=== PATIENT | female | born 1965 | race Caucasian/White ===

== ENCOUNTER 2017-03-06 08:34 | Inpatient (IN) ==
--- NOTE | 2017-03-05 15:51 | Discharge Summary ---
<Gemma De La Torre E - Last Filed: 03/05/17 15:49> Date of Encounter: 03/05/17 - Discharge Diagnosis (1) Arthritis of right knee Priority: Primary Status: Chronic (2) Insulin dependent diabetes mellitus Priority: Secondary Status: Chronic (3) Hemoglobin A1c less than 7.0% Priority: Secondary Status: Chronic (4) Bipolar disorder Priority: Secondary Status: Acute Qualifiers: Active/Remission status: remission status unspecified Qualified Code(s): F31.9 - Bipolar disorder, unspecified (5) Asthma Priority: Secondary Status: Chronic Qualifiers: Asthma severity: unspecified severity Asthma complication type: uncomplicated Qualified Code(s): J45.909 - Unspecified asthma, uncomplicated (6) GERD (gastroesophageal reflux disease) Priority: Secondary Status: Chronic Qualifiers: Esophagitis presence: esophagitis presence not specified Qualified Code(s) : K21.9 - Gastro-esophageal reflux disease without esophagitis (7) Migraine Priority: Secondary Status: Chronic Qualifiers: Migraine type: unspecified Status migrainosus presence: without status migrainosus Intractability: not intractable Qualified Code(s): G43.909 - Migraine, unspecified, not intractable, without status migrainosus (8) Hypothyroidism Priority: Secondary Status: Chronic Qualifiers: Hypothyroidism type: unspecified Qualified Code(s): E03.9 - Hypothyroidism , unspecified (9) BMI 40.0-44.9, adult Priority: Secondary Status: Chronic - Discharge Medications Prescriptions: cloZAPine [Clozaril] 150 mg PO DAILY #3 Gabapentin [Neurontin] 800 mg PO TID #15 Topiramate [Topamax] 200 mg PO BID #6 Trazodone HCl 100 mg PO HS #3 Home Medications: Atorvastatin Calcium [Lipitor] 20 mg PO HS 11/17/16 [History] Cyclobenzaprine [Flexeril] 10 mg PO TID PRN 11/17/16 [History] Cyprohepatdine [Periactin] 8 mg PO HS 11/17/16 [History] Esomeprazole Magnesium [Nexium] 40 mg PO DAILY 11/17/16 [History] Estradiol [Estrace] 1 mg PO DAILY 11/17/16 [History] Levothyroxine Sodium [Levoxyl] 150 mcg PO DAILY 11/17/16 [History] Melatonin [Melatin] 3 mg PO HS PRN 03/30/17 [History] Metformin HCl [Glucophage] 1,000 mg PO BID 11/17/16 [History] [place]-3/Dha/Epa/Fish Oil [Fish Oil 1,000 mg Softgel] 1 each PO DAILY 11/17/16 [ History] Aspirin Enteric Coated [Aspirin EC] 325 mg PO DAILY #21 tablet. 03/05/17 [Rx] Benztropine Mesylate 1 mg PO HS 03/06/17 [History] Ibuprofen [Motrin] 800 mg PO Q8HR PRN 03/06/17 [History] Insulin Degludec [Tresiba Flextouch U-100] 20 unit SQ HS 03/06/17 [History] Liraglutide [Victoza 2-Jonatan] 1.8 mg SQ QAM 03/06/17 [History] Propranolol [Inderal] 20 mg PO TID 03/06/17 [History] hydrOXYzine HCl [Hydroxyzine HCl] 50 mg PO QID 03/06/17 [History] Gabapentin [Neurontin] 800 mg PO TID #15 03/07/17 [Rx] Topiramate [Topamax] 200 mg PO BID #6 03/07/17 [Rx] Trazodone HCl 100 mg PO HS #3 03/07/17 [Rx] cloZAPine [Clozaril] 150 mg PO DAILY #3 03/07/17 [Rx] Allergies/Adverse Reactions: Allergies cephalexin [From Keflex] Allergy (Verified 03/06/17 12:52) Difficulty Breathing morphine Allergy (Verified 03/06/17 09:24) Hives naproxen [From Naprosyn] Adverse Reaction (Verified 03/06/17 12:52) Gastrointestinal Upset Tetanus Vaccines and Toxoid [Tetanus Vaccines & Toxoid] Adverse Reaction ( Verified 03/06/17 12:52) Redness of Skin Primary care physician: Eron Shook - Patient Status Disposition: Transfer Inpatient Rehab Fac Condition: Good - Discharge Instructions Follow Up With: Aguilar Young MD [Partnered Physician] - 03/16/17 2:00 pm Eron Shook, PAC [Primary Care Provider] - Additional Instructions: Discharge Instructions: Total Knee Replacement Please call [facility] ([phone]), your Primary Care Physician, or report to the Emergency Room if you have any of the following symptoms: Nausea, vomiting, fever greater that 101.5, swelling, chest pain, shortness of breath, increased pain/redness/drainage/odor for your incision site, numbness/ tingling, or any other concerning symptoms. ACTIVITY:Weight-bearing as tolerated. You may progress off support (crutches or walker) as tolerated. MEDICATIONS: Upon discharge resume your home medications. Take all the medications as prescribed. Take a stool softener if taking narcotic pain medications. Stool softeners are only effective if you drink enough fluids. Drink 6-8 glass of water or fluids a day, unless this is not allowed for another health problem. Despite using stool softeners, if you haven't had a bowel movement in 3 days, please switch to a gentle laxative. Gentle laxatives are sold over the counter. You should have a bowel movement within 24 hours, if not call the office. You will be discharged from the hospital with a prescription for pain medication. You are encouraged to decrease the use of narcotic pain medication as tolerated. Should you require a refill, please call the office. [facility] prescribes narcotic pain medication for only 4-6 weeks after surgery. If you require pain medication beyond this time period, you may be referred to your Primary Care Physician or to the Pain Clinic for further evaluation. Plan ahead for refills on pain medication as many narcotics either need to be picked up at the office or mailed. It is best to call 48-72 hours in advance of needing a prescription refill so you don't run out of medication. To help control the post-operative pain, you may take NSAIDs (Aleve,Advil, Motrin, Ibuprofen, Naprosyn) or Tylenol as prescribed on the bottle in addition to the pain medication. ANTICOAGULATION (blood thinners): Continue your Aspirin, Lovenox or Coumadin as prescribed to help prevent a blood clot in the leg or in the lungs. As long as your incision remains dry and you tolerate the NSAIDs (Aleve, Advil, Motrin, ibuprofen, naprosyn), it is OK to use the NSAIDS while you are taking your anticoagulation medication. Should your incision start to drain, stop the NSAID and contact our office. Common symptoms of blood clot in the legs include: localized pain, swelling, calf tenderness, redness or discoloration of the skin. Blood clot in the lung symptoms include: shortness of breath, rapid pulse, sweating, and chest pain that worsens with deep breathing, coughing up blood, lightheadedness, feelings of anxiety. If you experience any of these symptoms notify your physician immediately, go to the emergency room, or if having trouble breathing, call 911. WOUND CARE: Leave the dressing on for 7 to 10days. You may change the dressing if it becomes saturated greater than 50%. Do not get the dressing wet at anytime. Wash your hands with antibacterial soap, rinse and dry prior to any wound care. If you have apple the visiting nurse or rehab facility can remove the stapes 10-14 days after surgery and place steri-strips across the wound. Leave the steri-strips in place until they fall off on their won. You may let water from the shower run on top of the steri-strips. If you do not have a visiting nurse or rehab facility, you will need to return to the office at 10-14 days for the apple to be removed. If you have itching or redness around the dressing call the office. FOLLOW-UP: Please follow up with your surgeon in the orthopedic clinic in 4 weeks from the day of surgery. If you have apple that need to be removed, you will need to come back to the office in 10-14 days from the day of surgery. - Hospital Course Hospital course: Ms. Cooper is a 51 year old female - Time Spent with Patient Total time spent providing and/or coordinating discharge services: - VTE Documentation of Mechanical Device: Venous foot pump, device <Aguilar Young - Last Filed: 03/09/17 10:03> Date of Encounter: 03/09/17 Time of Encounter: 10:02 - Discharge Diagnosis (1) Arthritis of right knee Priority: Primary Status: Chronic (2) Insulin dependent diabetes mellitus Priority: Secondary Status: Chronic (3) Hemoglobin A1c less than 7.0% Priority: Secondary Status: Chronic (4) Bipolar disorder Priority: Secondary Status: Acute Qualifiers: Active/Remission status: remission status unspecified Qualified Code(s): F31.9 - Bipolar disorder, unspecified (5) Asthma Priority: Secondary Status: Chronic Qualifiers: Asthma severity: unspecified severity Asthma complication type: uncomplicated Qualified Code(s): J45.909 - Unspecified asthma, uncomplicated (6) GERD (gastroesophageal reflux disease) Priority: Secondary Status: Chronic Qualifiers: Esophagitis presence: esophagitis presence not specified Qualified Code(s) : K21.9 - Gastro-esophageal reflux disease without esophagitis (7) Migraine Priority: Secondary Status: Chronic Qualifiers: Migraine type: unspecified Status migrainosus presence: without status migrainosus Intractability: not intractable Qualified Code(s): G43.909 - Migraine, unspecified, not intractable, without status migrainosus (8) Hypothyroidism Priority: Secondary Status: Chronic Qualifiers: Hypothyroidism type: unspecified Qualified Code(s): E03.9 - Hypothyroidism , unspecified (9) BMI 40.0-44.9, adult Priority: Secondary Status: Chronic (10) Acute blood loss anemia Status: Acute (11) Vasovagal episode Priority: Primary Status: Acute Primary care physician: Eron Shook - Patient Status Functional capacity at discharge: uses cane/walker Overall status at discharge: patient is progressing back to baseline - Hospital Course Hospital course: Ms. Cooper is a 51 year old female Status post right total knee replacement. Patient with vasovagal event evening after surgery patient responded to conservative management. Patient with acute blood loss anemia received 2 units of blood postoperatively on postop day #2. Patient was seen early on postoperative day #2 doing well patient's ultimately developed delirium was given Narcan with good response. Patient is seen this morning doing well no complaints. Ready for discharge. Patient will be discharged to [facility] follow-up in 1 week. Patient was discharged on aspirin DVT prophylaxis - Time Spent with Patient Total time spent providing and/or coordinating discharge services:
[2017-03-06] MEDS ORDERED: CeFAZolin Pre 2,000 MG/100 ML 2,000 MG/100 ML BAG IVPB ONE (08:50)
[2017-03-06] MEDS ORDERED: Albuterol 2.5 MG/3 ML NEBULIZER IH ONE (08:50)
[2017-03-06] MEDS ORDERED: Lidocaine -MPF 1% 2 ML VIAL ID ONE (08:50)
[2017-03-06] MEDS ORDERED: Vancomycin 1,750 MG in D5% in Water 500 ML IVPB ONE (08:52)
[2017-03-06] MEDS: Ringers Solution, Lactated 1,000 ML IVC SCH ×2 (09:15→13:31)
--- NOTE | 2017-03-06 09:18 | History & Physical Report ---
Date of Encounter: 03/06/17 Time of Encounter: 09:18 24 Hour HP Update - Instructions Instructions: If the History and Physical is less than 30 days old and was completed prior to A.M. admission and or procedure and has NOT been updated on calendar day of procedure please complete this update prior to performing procedure. - Update Patient reports changes in Medical Condition: No Changes in examination, assessment, or condition: No Changes in Medication: No Preop tests/diagnostics Reviewed: Yes Surgery Remains Indicated: Yes Consent for Planned Operative Procedure(s) Verified: Yes - Pre-Operative Checklist Preoperative Checklist Indicated: No Prophylactic Antibiotic Ordered: Yes Is VTE Prophylaxis Indicated?: Yes
--- NOTE | 2017-03-06 09:23 | Anesthesia Evaluation PreOp ---
Date of Encounter: 03/06/17 Time of Encounter: 09:21 - Past History Planned Operation: Right Total Knee Arthroplasty Cardiac History: HTN, Hyperlipidemia Pulmonary History: Former smoker (quit 1.5 years ago, smoked for 15+ years), Asthma VEGETABLE CANNER History: Seizures (medication induced seizure) Other Medical History: Diabetes Type II, Thyroid, GERD, Other (obesity BMI=42.1 , bipolar) Anesthesia History: No Prior Anesthetic Complications, Past Anesthesia Alcohol Use: none Drug use: none Medications and Allergies Atorvastatin Calcium [Lipitor] 20 mg PO HS 11/17/16 [History] Benztropine Mesylate 2 mg PO BID 11/17/16 [History] Cyclobenzaprine [Flexeril] 10 mg PO TID 11/17/16 [History] Cyprohepatdine [Periactin] 8 mg PO HS 11/17/16 [History] Esomeprazole Magnesium [Nexium] 40 mg PO DAILY 11/17/16 [History] Estradiol [Estrace] 1 mg PO DAILY 11/17/16 [History] Gabapentin [Neurontin] 800 mg PO TID 11/17/16 [History] HYDROcodone/Acet 5/325 mg [[place] 5-325 mg] 1 tab PO Q6H PRN 11/17/16 [History] HydrOXYzine 10 mg PO BID 11/17/16 [History] Levothyroxine Sodium [Levoxyl] 150 mcg PO DAILY 11/17/16 [History] Melatonin [Melatin] 3 mg PO HS PRN 11/17/16 [History] Metformin HCl [Glucophage] 1,000 mg PO BID 11/17/16 [History] [place]-3/Dha/Epa/Fish Oil [Fish Oil 1,000 mg Softgel] 1 each PO DAILY 11/17/16 [ History] Propranolol HCl 40 mg PO BID 11/17/16 [History] Topiramate [Topamax] 200 mg PO BID 11/17/16 [History] cloZAPine [Clozaril] 100 mg PO DAILY 11/17/16 [History] Aspirin Enteric Coated [Aspirin EC] 325 mg PO DAILY #21 tablet. 03/05/17 [Rx] Ibuprofen [Motrin] 800 mg PO Q8HR PRN 03/06/17 [History] Insulin Degludec [Tresiba Flextouch U-100] 20 unit SQ HS 03/06/17 [History] Liraglutide [Victoza 2-Jonatan] 1.8 mg SQ QAM 03/06/17 [History] Trazodone HCl 100 mg PO HS 03/06/17 [History] Allergies cephalexin [From Keflex] Allergy (Verified 03/06/17 09:24) Swelling of Lip/Tongue/Throat morphine Allergy (Verified 03/06/17 09:24) Hives Tetanus Vaccines and Toxoid [Tetanus Vaccines & Toxoid] Allergy (Verified 09:24) Redness of Skin naproxen [From Naprosyn] Adverse Reaction (Verified 03/06/17 09:24) Gastrointestinal Upset - Meds/Allergy Pre-op Review Medications Reviewed: Yes Allergies Reviewed: Yes Beta Blockers on Current Med List: Yes If Beta Blockers taken, Date/Time (Last Dose taken): 03/06/2017 at 0645 Anesthesia Results - Labs Laboratory Tests 02/28/17 02/28/17 02/28/17 14:15 14:15 14:45 WBC 7.6 Hgb 12.2 Hct 38.9 Plt Count 228 PT 10.1 INR 0.9 APTT 30.8 Sodium Potassium BUN 12 Creatinine 0.84 02/28/17 14:45 WBC Hgb Hct Plt Count PT INR APTT Sodium 137 Potassium 4.5 BUN Creatinine - Imaging EKG: report reviewed (02/28/2017 SR) Anesthesia Exam O2 Sat Height 1.68 m Height 1.68 m Height 1.68 m Weight 118.388 kg Weight 118.388 kg Weight 118.388 kg O2 Sat by Pulse Oximetry 96 O2 Sat by Pulse Oximetry 96 Vital Signs Temp Pulse Resp BP Pulse Ox 97.9 F 83 18 137/90 96 03/06/17 08:54 03/06/17 08:54 03/06/17 08:54 03/06/17 08:54 03/06/17 08:54 Blood glucose: 152 Height: 5'6'' Weight: 261 lbs NPO (# of Hours): 8 Pain Scale: 4 (right knee) Pain Scale Used: Numeric (1 - 10) - HEENT Pupil (Motor): EOMI Mallampati: II Teeth: Poor dentition Oral Opening: Greater than 3 - VEGETABLE CANNER LOC: Oriented VEGETABLE CANNER Motor: Normal RUE, Normal LUE, Normal RLE, Normal LLE, Normal Face VEGETABLE CANNER Sensory: Normal: RUE, LUE, Face, Deficit: RLE (foot neuropathy), LLE (foot neuropathy) - Cardiac Rhythm: Regular Murmur: None - Pulmonary Breath Sounds: bilateral Clear Respiratory Effort: Symmetrical Anesthesia Assess/Plan ASA Score: 3 Modified Ignacia Scale for Level of Consciousness: Cooperative, oriented, and tranquil Anesthetic Plan: General, Regional Monitoring Plan: Standard Monitors Recovery Plan: PACU
[2017-03-06] MEDS ORDERED: Scopolamine Patch 1.5 MG PATCH.TD72 TD ONE (09:33)
[2017-03-06] MEDS ORDERED: Ondansetron 4 MG/2 ML VIAL IVP ONE (09:47)
[2017-03-06] MEDS ORDERED: *HR* Meperidine 25 MG/ML SYRINGE IVP PRN (09:47)
[2017-03-06] MEDS ORDERED: *HR* Propofol 200 MG/20 ML VIAL IVP ONE (09:49)
[2017-03-06] MEDS ORDERED: Lidocaine -MPF 2% 2 ML VIAL ONE ×2 (09:49→11:23)
[2017-03-06] MEDS ORDERED: *HR* FentaNYL (PF) 100 MCG/2 ML VIAL ONE ×2 (09:49→11:33)
[2017-03-06] MEDS ORDERED: *HR* Midazolam HCl 2 MG/2 ML VIAL ONE (09:49)
[2017-03-06] MEDS ORDERED: ROPIVACAINE HCL/PF 0.5% 30 ML VIAL ONE (10:29)
[2017-03-06] MEDS ORDERED: Bupivacaine/Clonidine Syringe 1 EACH SYRINGE ONE (10:30)
--- NOTE | 2017-03-06 10:57 | Anesthesia Procedures ---
Date of Encounter: 03/06/17 Time of Encounter: 10:45 Procedures: Anesthesia - Nerve Block Procedure Date: 03/06/17 Time: 10:45 Allergies/Adv Reactions: None Pre-op Diagnosis: Right knee arthritis Surgical Procedure: Right total knee Checklist: Correct Patient Identifier, Correct procedure, History checked Correct side: Right Blood Thinner: No Monitor Applied: EKG, BP, Pulse Oximetry Supplemental Oxygen via Nasal Cannula (L/min): 2 Sedation: Versed (mg): 2 Sedation: Fentanyl (mcg): 100 Indication: Post Op Analgesia Pre-op Neuro Deficits: No Block Type: Femoral, Other (IPACK) Catheter placed: No Sterile Technique: Yes Ultrasound used: Yes Anatomy identified: Yes Visual spread of Local: Yes Neuro Stimulation: Yes Nerve Stimulator Range: 0.2 - 0.4 mA Blood on Needle Aspiration: No Smooth Injection of Local: Yes Pain with Injection of Local: No Prep: Chlorhexadine Needle: 22 x 50 mm Stimuplex, 21 x 100 mm Stimuplex Local: 0.25% Bupivicaine w/Clonidine 20 mcg/cc (30ml), Ropivacaine (0.5%, 30ml) Number of Attempts: 1 Complications: None/effective block Vitals: Vital Signs/O2 Sat/Glucose, Most Recent Temp Pulse Resp BP Pulse Ox 97.9 F 84 16 118/59 96 03/06/17 08:54 03/06/17 10:53 03/06/17 10:53 03/06/17 10:53 03/06/17 10:53 Blood Glucose* 152
[2017-03-06] MEDS ORDERED: Dexamethasone 4 MG/ML VIAL ONE (11:23)
[2017-03-06] MEDS ORDERED: Ondansetron 4 MG/2 ML VIAL ONE (11:23)
--- NOTE | 2017-03-06 11:50 | Orthopedic Operative Note ---
Date of procedure: 03/06/17 Pre-op diagnosis: Right knee arthritis Post-op diagnosis: same Procedure: Procedure: Right Total knee replacement Estimated blood loss: 400 cc Hardware: Metal and polyethylene replacement. Arthrex Femur: 6 Tibia: 5 PS insert: 12 Patella: 34 Exam Under anesthesia: Full flexion and extension, valgus alignment. Procedural Notes: Grade 3 arthritic changes patellofemoral joint and lateral compartment. Operative procedure: The patient was brought to the operating room and placed on the operating room table. After general anesthesia was administered the operative knee was examined. Findings were noted in the exam under anesthesia. The operative extremity was prepped and draped in sterile surgical fashion. The patient received IV antibiotics prior to skin incision. A standard midline incision was made centered over the patella. The incision was made through the skin and subcutaneous tissue. A medial parapatellar tendon approach was performed. Care was taken to preserve tissue along the medial aspect of the patella. And to protect the patella tendon. The deep MCL was released off the medial tibia. The infra patella fat pad was excised. Knee was brought into flexion. The patient was noted to have grade 3 arthritic changes patellofemoral joint lateral compartment. The entry hole was made for the intramedullary femoral guide. The guide was seated in 6 degrees of valgus. Anterior cut was made followed by the distal cut. The ACL the PCL the medial and the lateral menisci were excised. The tibia was subluxed forward. The entry hole was made for the intramedullary tibial guide. Guide was seated to resect 2 mm off the more abnormal side. The knee was brought into flexion the distal femur was sized to a 6. The femoral guide was seated, the anterior cut was made followed by the posterior condylar cut, followed by the chamfer cuts. The finishing guide was seated the box cut was made and the lug holes were drilled. The tibia was sized to a 5, the tibial tray was seated and prepared with the large drill followed by the fin cutter. Trial reduction revealed full extension no varus valgus instability with the appropriate 12 PS Lita. The patella was everted and cut was made at the level of the insertion of the quadriceps and patella tendon. The patella was sized to 34 the guide was seated and the lug holes are drilled. Trial reduction revealed excellent patella tracking. All trial components were removed all bony surfaces were irrigated. The tibia was cemented first followed by the femur. The 12 PS Lita was seated and the knee was brought into full extension. The patella was cemented and held in place with the patellar holding clamp. After the cement had hardened, the knee sat for 2 minutes with a Betadine saline solution. The knee was then irrigated out with 2 L of pulse irrigation. The PA close the knee. The extensor mechanism was closed with #2 FiberWire suture and #2 PDS suture. The subcutaneous tissue was then irrigated and closed deep with #1 PDS suture superficially with 0 PDS suture and skin was closed with skin apple. The patient was then placed in a sterile dressing and a postoperative brace extubated and transferred to recovery room in stable condition. Anesthesia: JAIME Surgeon: Aguilar Young Agriculture Specialist: Nakia Devlin Condition: stable Disposition: PACU
[2017-03-06] MEDS ORDERED: *HR* HYDROmorphone 2 MG/ML SYRINGE ONE (12:09)
[2017-03-06] MEDS: *HR* HYDROmorphone (PF) 1 MG/ML SYRINGE IVP PRN ×4 (12:35→13:06)
[2017-03-06 12:37] LABS: Hematocrit 34.4 % (35.3-44.9); Hemoglobin 11.1 g/dL (11.5-15.4)
[2017-03-06] MEDS ORDERED: Acetaminophen IV 1,000 MG/100 ML INFUS..BTL IVPB ONE (12:56)
[2017-03-06] MEDS ORDERED: *HR* Labetalol 20 MG/4 ML SYRINGE IVP ONE ×2 (13:25→13:27)
--- NOTE | 2017-03-06 13:33 | Anesthesia Evaluation Post Op ---
Date of Encounter: 03/06/17 Time of Encounter: 13:31 - Vital Signs Vital Signs: Vital Signs/O2 Sat/Glucose, Most Recent Temp Pulse Resp BP Pulse Ox 97.1 F L 104 114 119/80 94 03/06/17 12:49 03/06/17 13:09 03/06/17 13:09 03/06/17 13:09 03/06/17 13:09 Blood Glucose* 232 - Lungs Lungs: Clear Ascult./Percussion - Airway Airway: Non-obstructed - Cardiovascular Regular Rate - Mental Status Mental Status: Alert & Oriented, Answers Appropriately - Pain Pain Scale: 5 (Patient resting with C/O slight aching pain) - Nausea Vomiting Nausea Vomiting: Not Present - Hydration Hydration: Tolerates oral liquids, Has not voided Notes: 03/06/17 13:35 AAOx3,VSS with no complaints - Discharge PostOp Status: Transfer Patient to floor
[2017-03-06] MEDS ORDERED: Melatonin 3 MG TABLET PO PRN (14:07)
[2017-03-06] MEDS ORDERED: Ondansetron 4 MG/2 ML VIAL IVP PRN (14:07)
[2017-03-06] MEDS ORDERED: Naloxone 0.4 MG/ML INJ IVP PRN (14:07)
[2017-03-06] MEDS ORDERED: MOM Conc 10 ML UD.LIQ PO PRN (14:07)
[2017-03-06] MEDS ORDERED: *HR* Dextrose 50 % in Water (Syg) 50 ML SYRINGE IVP PRN (14:07)
[2017-03-06] MEDS ORDERED: Temazepam 15 MG CAPSULE PO PRN (14:07)
[2017-03-06] MEDS ORDERED: Dextrose Gel 15 GM PO PRN ×2 (14:07)
[2017-03-06] MEDS ORDERED: Ringers Solution, Lactated 1,000 ML IVC SCH (14:07)
[2017-03-06] MEDS ORDERED: Sennosides 8.6 MG TABLET PO PRN (14:07)
[2017-03-06] MEDS ORDERED: D5% in Water 1,000 ML IVC PRN (14:07)
[2017-03-06] MEDS: Insulin LISPRO 300 UNITS/3 ML VIAL SQ SCH ×3 (15:33→21:31)
[2017-03-06] MEDS: Clindamycin 900 MG/50 ML 900 MG/50 ML IV.SOLN IVPB SCH ×2 (15:34→23:01)
[2017-03-06] MEDS: Gabapentin 400 MG CAPSULE PO SCH ×2 (15:34→21:30)
--- NOTE | 2017-03-06 17:05 | Event Note ---
Date of Encounter: 03/06/17 Time of Encounter: 17:03 Patient Rapid response at approx 1630 s/p Right TKR today, vasovagel response during PT. No trauma noted. Patient resting in bed comfortably during exam. Will repeat H/H stat and get Blood type, and cross. notified.
[2017-03-06 17:09] LABS: Hematocrit 34.6 % (35.3-44.9); Hemoglobin 11.1 g/dL (11.5-15.4)
[2017-03-06] MEDS ORDERED: *HR* Enoxaparin 30 MG/0.3 ML SYRINGE SQ SCH (18:00)
[2017-03-06] MEDS: *HR* OxyCODONE Immed Rel 5 MG TABLET PO PRN ×2 (18:10→22:33)
[2017-03-06] MEDS: *HR* Enoxaparin 30 MG/0.3 ML SYRINGE SQ SCH (18:11)
[2017-03-06] MEDS: Cyprohepatdine 4 MG TABLET PO SCH (21:30)
[2017-03-06] MEDS: *HR* Metformin 500 MG TABLET PO SCH (21:30)
[2017-03-06] MEDS: Topiramate 100 MG TABLET PO SCH (21:31)
[2017-03-06] MEDS: traZODone 50 MG TABLET PO SCH (21:31)
[2017-03-06] MEDS: Insulin Degludec [Tresiba Flextouch U-100] SQ SCH (21:36)
[2017-03-07] MEDS: *HR* HYDROmorphone (PF) 1 MG/ML SYRINGE IVP PRN ×3 (00:10→13:58)
[2017-03-07] MEDS: *HR* OxyCODONE Immed Rel 5 MG TABLET PO PRN ×4 (02:36→21:25)
[2017-03-07] MEDS: *HR* Enoxaparin 30 MG/0.3 ML SYRINGE SQ SCH ×2 (05:24→16:39)
[2017-03-07 05:46] LABS: Hematocrit 28.1 % (35.3-44.9)
[2017-03-07 05:50] LABS: BUN/Creatinine Ratio 15 (6-26); Blood Urea Nitrogen 13 mg/dL (7-20); Carbon Dioxide 23 mEq/L (19-29); Chloride 96 mEq/L (98-109); Glucose 167 mg/dL (70-99); Osmolality,Calculated 272 (280-300); Potassium 4.1 mEq/L (3.5-4.5); Sodium 129 mEq/L (136-145); eGFR For African Americans > 60 (> 60); eGFR For Non-African Americans > 60 (> 60)
[2017-03-07 05:54] LABS: Hemoglobin 9.1 g/dL (11.5-15.4)
--- NOTE | 2017-03-07 06:46 | Orthopedics Progress Note ---
Date of Encounter: 03/07/17 Time of Encounter: 06:45 - Assessment and Plan (1) Arthritis of right knee Current Visit: Yes Status: Chronic (2) Insulin dependent diabetes mellitus Current Visit: Yes Status: Chronic (3) Hemoglobin A1c less than 7.0% Current Visit: Yes Status: Chronic (4) Bipolar disorder Current Visit: Yes Status: Acute Qualifiers: Active/Remission status: remission status unspecified Qualified Code(s): F31.9 - Bipolar disorder, unspecified (5) Asthma Current Visit: Yes Status: Chronic Qualifiers: Asthma severity: unspecified severity Asthma complication type: uncomplicated Qualified Code(s): J45.909 - Unspecified asthma, uncomplicated (6) GERD (gastroesophageal reflux disease) Current Visit: Yes Status: Chronic Qualifiers: Esophagitis presence: esophagitis presence not specified Qualified Code(s) : K21.9 - Gastro-esophageal reflux disease without esophagitis (7) Migraine Current Visit: Yes Status: Chronic Qualifiers: Migraine type: unspecified Status migrainosus presence: without status migrainosus Intractability: not intractable Qualified Code(s): G43.909 - Migraine, unspecified, not intractable, without status migrainosus (8) Hypothyroidism Current Visit: Yes Status: Chronic Qualifiers: Hypothyroidism type: unspecified Qualified Code(s): E03.9 - Hypothyroidism , unspecified (9) BMI 40.0-44.9, adult Current Visit: Yes Status: Chronic Subjective Interval history: Patient was seen this morning doing well without complaints. Afebrile vital signs stable. Operative extremity: Neurovascularly intact Dressing clean dry and intact Calves nontender Assessment and plan: Continue with postoperative care Hemoglobin 9.1 patient was vasovagal episode overnight doing well this morning. Objective Vital signs: Vital Signs Temp Pulse Resp BP Pulse Ox 03/07/17 03:32 97.4 F L 98 17 114/76 96 03/07/17 01:05 98.3 F 100 17 123/81 96 03/07/17 00:14 97.7 F 101 16 122/76 96 03/06/17 21:13 97.6 F 114 17 123/75 96 03/06/17 16:18 97.8 F 112 16 106/69 96 03/06/17 15:25 98.7 F 106 16 108/66 96 03/06/17 14:40 97.6 F 16 16 108/68 94 03/06/17 14:09 98.7 F 97 18 99/64 03/06/17 13:39 97.6 F 93 16 108/67 96 03/06/17 13:29 90 16 111/77 98 03/06/17 13:19 97.1 F L 104 16 122/79 96 03/06/17 13:09 104 14 119/80 94 03/06/17 12:59 101 16 127/72 96 03/06/17 12:49 97.1 F L 104 14 116/78 94 03/06/17 12:39 106 16 120/77 95 03/06/17 12:29 105 16 115/82 95 03/06/17 12:19 97.0 F L 94 16 128/79 95 03/06/17 10:53 84 16 118/59 96 03/06/17 10:28 87 16 120/86 94 03/06/17 09:07 18 96 03/06/17 08:54 97.9 F 83 18 137/90 96 Intake and Output 03/06/17 03/06/17 03/07/17 15:59 23:59 07:59 Intake Total 1070 / 1070 470 / 470 1550 / 1550 Output Total 800 / 800 1000 / 1000 500 / 500 Balance 270 / 270 -530 / -530 1050 / 1050 Intake: IV Fluids 1070 / 1070 50 / 50 50 / 50 Lactated Ringers 1,000 ML 970 / 970 @ 25 mls/hr IVC .Q24H [facility] Rx#:[id number] Ofirmev 1,000 mg/100 ml 1 100 / 100 ,000 mg In 100 ml @ 400 mls/hr IVPB ONCE ONE Rx#: [id number] Cleocin Premix 900 MG/50 50 / 50 50 / 50 ML 900 mg In 50 ml @ 50 mls/hr IVPB Q8HR [facility] Rx#: [id number] Oral 0 / 0 420 / 420 1500 / 1500 Output: Urine 0 / 0 1000 / 1000 500 / 500 Estimated Blood Loss 800 / 800 Other: Weight 118.388 kg 123.6 kg Blood Glucose* 232 204 Patient Weight 03/07/17 23:59 Weight 123.6 kg - Labs CBC & BMP: 03/07/17 05:12 03/07/17 05:12 Labs: Abnormal lab results Hgb 9.1 g/dL (11.5-15.4) L D 03/07/17 05:12 Hct 28.1 % (35.3-44.9) L 03/07/17 05:12 Sodium 129 mEq/L (136-145) L 03/07/17 05:12 Chloride 96 mEq/L (98-109) L 03/07/17 05:12 Glucose 167 mg/dL (70-99) H 03/07/17 05:12 POC Glucose 204 (58-89) H 03/06/17 21:05 Calculated Osmolality 272 (280-300) L 03/07/17 05:12 - VTE Documentation of Mechanical Device: Venous foot pump, device Consult Discharge Plan - Plan Referrals: Eron Shook, PAC [Primary Care Provider] -
[2017-03-07] MEDS: Insulin LISPRO 300 UNITS/3 ML VIAL SQ SCH ×4 (07:38→21:30)
[2017-03-07] MEDS: Gabapentin 400 MG CAPSULE PO SCH ×3 (07:40→21:24)
[2017-03-07] MEDS: Topiramate 100 MG TABLET PO SCH ×2 (07:41→21:24)
[2017-03-07] MEDS: cloZAPine 100 MG TABLET PO SCH (07:41)
[2017-03-07] MEDS: *HR* Metformin 500 MG TABLET PO SCH ×2 (07:41→21:24)
[2017-03-07] MEDS: (Liraglutide [Victoza 2-Pak] 1.8 MG) SQ SCH (07:46)
[2017-03-07] MEDS ORDERED: (Omega-3/Dha/Epa/Fish Oil [Fish Oil 1,000 Mg Softgel] PO SCH (09:00)
--- NOTE | 2017-03-07 12:44 | Event Note ---
Date of Encounter: 03/07/17 Time of Encounter: 12:43 PCR - POD#1 - Right TKR Patient seen at bedside, doing well. Pain controlled. Doing well with PT All questions and concerns addressed. Patient educated on post-operative restrictions and care. D/C plan: ECF or Home health. Recheck H/H tomorrow. She has 2 units on hold if needed due to vasovagal episode 03/06/17
--- NOTE | 2017-03-07 12:44 | Physician Discharge Referral ---
ExtendedCare Referral Info Transfer To: [facility] Provider in Charge: Provider in Charge after Transfer: PCP Institutional Level of Care: Skilled - Diagnosis (1) Status post total knee replacement, right Priority: Primary Status: Acute (2) Arthritis of right knee Priority: Primary Status: Chronic (3) Bipolar disorder Priority: Secondary Status: Acute (4) Asthma Priority: Secondary Status: Chronic (5) GERD (gastroesophageal reflux disease) Priority: Secondary Status: Chronic (6) Migraine Priority: Secondary Status: Chronic (7) Hypothyroidism Priority: Secondary Status: Chronic (8) BMI 40.0-44.9, adult Priority: Secondary Status: Chronic (9) Vasovagal episode Priority: Secondary Status: Acute Expected Duration of Placement: 30 days Prognosis: Good Aware of Diagnosis: Patient Aware of Prognosis: Patient - Transfer Medications Prescriptions: cloZAPine [Clozaril] 150 mg PO DAILY #3 Gabapentin [Neurontin] 800 mg PO TID #15 Topiramate [Topamax] 200 mg PO BID #6 Trazodone HCl 100 mg PO HS #3 Home Medications: Atorvastatin Calcium [Lipitor] 20 mg PO HS 11/17/16 [History] Cyclobenzaprine [Flexeril] 10 mg PO TID PRN 11/17/16 [History] Cyprohepatdine [Periactin] 8 mg PO HS 11/17/16 [History] Esomeprazole Magnesium [Nexium] 40 mg PO DAILY 11/17/16 [History] Estradiol [Estrace] 1 mg PO DAILY 11/17/16 [History] Levothyroxine Sodium [Levoxyl] 150 mcg PO DAILY 11/17/16 [History] Melatonin [Melatin] 3 mg PO HS PRN 11/17/16 [History] Metformin HCl [Glucophage] 1,000 mg PO BID 11/17/16 [History] [place]-3/Dha/Epa/Fish Oil [Fish Oil 1,000 mg Softgel] 1 each PO DAILY 11/17/16 [ History] Aspirin Enteric Coated [Aspirin EC] 325 mg PO DAILY #21 tablet. 03/05/17 [Rx] Benztropine Mesylate 1 mg PO HS 03/06/17 [History] Ibuprofen [Motrin] 800 mg PO Q8HR PRN 03/06/17 [History] Insulin Degludec [Tresiba Flextouch U-100] 20 unit SQ HS 03/06/17 [History] Liraglutide [Victoza 2-Jonatan] 1.8 mg SQ QAM 03/06/17 [History] Propranolol [Inderal] 20 mg PO TID 03/06/17 [History] hydrOXYzine HCl [Hydroxyzine HCl] 50 mg PO QID 03/06/17 [History] Gabapentin [Neurontin] 800 mg PO TID #15 03/07/17 [Rx] Topiramate [Topamax] 200 mg PO BID #6 03/07/17 [Rx] Trazodone HCl 100 mg PO HS #3 03/07/17 [Rx] cloZAPine [Clozaril] 150 mg PO DAILY #3 03/07/17 [Rx] Allergies/Adverse Reactions: Allergies cephalexin [From Keflex] Allergy (Verified 03/06/17 12:52) Difficulty Breathing morphine Allergy (Verified 03/06/17 09:24) Hives naproxen [From Naprosyn] Adverse Reaction (Verified 03/06/17 12:52) Gastrointestinal Upset Tetanus Vaccines and Toxoid [Tetanus Vaccines & Toxoid] Adverse Reaction ( Verified 03/06/17 12:52) Redness of Skin - Respiratory Orders Smoking Cessation: Smoking cessation has been advised. For more information, call the [place] Tobacco Quit Line at 0-975-ZDVU-NOW. - Ancillary Orders May use pressure relief devices daily prn, May go on DIONNA w/family/respon libertarian w /meds at nurse discretion PRN - Mobility Orders Chair, Ambulate - Rehabiliation Orders Rehab Potential: Good Rehab Orders: ROM Exercises, Evaluation for Physical Therapy, Evaluation for Occupational Therapy Other: Opsite dressing, leave intact until first post-operative visit. If dressing becomes >50% saturated, contact office, remove dressing and place appropriate dressing in its place. Do not allow for dressing to get wet. [place] in place, plan to remove at post-operative day #14-16. Total Joint Precautions x 6 weeks Apply cold therapy wrap 3-6x/day for 20 minutes at a time. Encourage ambulation throughout the day Use Incentive spirometer 10x/hour. Elevate affected extremity above heart as tolerated. Brace: Wear knee immobilizer at night x 2 weeks. - Treatments Skin tear care topically daily PRN per policy - Diet Orders Regular CERTIFICATION: I certify that the transfer of the above named patient to an Extended Care Facility is necessary for the continuing treatment of the diagnosis listed. The above information is true and accurate reflection of patient's current condition. Confidential - Redisclosure prohibited without a patient's written consent.
--- NOTE | 2017-03-07 12:45 | Physician Discharge Referral ---
Home Health/Hosp Referral Info Transfer to: Home Health Attending Provider: Provider in Charge Post Discharge: PCP - Diagnosis (1) Status post total knee replacement, right Priority: Primary Status: Acute (2) Arthritis of right knee Priority: Primary Status: Chronic (3) Bipolar disorder Priority: Secondary Status: Acute (4) Vasovagal episode Priority: Secondary Status: Acute (5) Asthma Priority: Secondary Status: Chronic (6) BMI 40.0-44.9, adult Priority: Secondary Status: Chronic (7) GERD (gastroesophageal reflux disease) Priority: Secondary Status: Chronic (8) Hypothyroidism Priority: Secondary Status: Chronic (9) Insulin dependent diabetes mellitus Priority: Secondary Status: Chronic (10) Migraine Priority: Secondary Status: Chronic - Respiratory Orders Other Smoking Cessation: Smoking cessation has been advised. For more information, call the [employer] Tobacco Quit Line at 2-985-XAPG-NOW. - Dressing/Wound Care Site: Opsite dressing, leave intact until first post-operative visit. If dressing becomes >50% saturated, contact office, remove dressing and place appropriate dressing in its place. Do not allow for dressing to get wet. [place] in place, plan to remove at post-operative day #14-16. Total Joint Precautions x 6 weeks Apply cold therapy wrap 3-6x/day for 20 minutes at a time. Encourage ambulation throughout the day Use Incentive spirometer 10x/hour. Elevate affected extremity above heart as tolerated. Brace: Wear knee immobilizer at night x 2 weeks. - Diet/Nutrition Diet/Nutrition Orders: Regular - Activity Activity Orders: Up ad che, Ambulate - Services Needed Following services are medically necessary services: Nursing, Home Health Aide, Physical Therapy, Occupational Therapy - Transfer Medications Prescriptions: cloZAPine [Clozaril] 150 mg PO DAILY #3 Gabapentin [Neurontin] 800 mg PO TID #15 Topiramate [Topamax] 200 mg PO BID #6 Trazodone HCl 100 mg PO HS #3 Home Medications: Atorvastatin Calcium [Lipitor] 20 mg PO HS 11/17/16 [History] Cyclobenzaprine [Flexeril] 10 mg PO TID PRN 11/17/16 [History] Cyprohepatdine [Periactin] 8 mg PO HS 11/17/16 [History] Esomeprazole Magnesium [Nexium] 40 mg PO DAILY 11/17/16 [History] Estradiol [Estrace] 1 mg PO DAILY 11/17/16 [History] Levothyroxine Sodium [Levoxyl] 150 mcg PO DAILY 11/17/16 [History] Melatonin [Melatin] 3 mg PO HS PRN 11/17/16 [History] Metformin HCl [Glucophage] 1,000 mg PO BID 11/17/16 [History] [place]-3/Dha/Epa/Fish Oil [Fish Oil 1,000 mg Softgel] 1 each PO DAILY 11/17/16 [ History] Aspirin Enteric Coated [Aspirin EC] 325 mg PO DAILY #21 tablet. 03/05/17 [Rx] Benztropine Mesylate 1 mg PO HS 03/06/17 [History] Ibuprofen [Motrin] 800 mg PO Q8HR PRN 03/06/17 [History] Insulin Degludec [Tresiba Flextouch U-100] 20 unit SQ HS 03/06/17 [History] Liraglutide [Victoza 2-Jonatan] 1.8 mg SQ QAM 03/06/17 [History] Propranolol [Inderal] 20 mg PO TID 03/06/17 [History] hydrOXYzine HCl [Hydroxyzine HCl] 50 mg PO QID 03/06/17 [History] Gabapentin [Neurontin] 800 mg PO TID #15 03/07/17 [Rx] Topiramate [Topamax] 200 mg PO BID #6 03/07/17 [Rx] Trazodone HCl 100 mg PO HS #3 03/07/17 [Rx] cloZAPine [Clozaril] 150 mg PO DAILY #3 03/07/17 [Rx] Allergies/Adverse Reactions: Allergies cephalexin [From Keflex] Allergy (Verified 03/06/17 12:52) Difficulty Breathing morphine Allergy (Verified 03/06/17 09:24) Hives naproxen [From Naprosyn] Adverse Reaction (Verified 03/06/17 12:52) Gastrointestinal Upset Tetanus Vaccines and Toxoid [Tetanus Vaccines & Toxoid] Adverse Reaction ( Verified 03/06/17 12:52) Redness of Skin Certification: Further, I certify that my clinical findings support that this patient is homebound (i.e. absences from home require considerable and taxing effort and are for medical reasons or spiritism services or infrequently or short duration when for other reasons) because: Homebound Reason: Post-surgery restriction and or conditions limit ability to leave home Attestation: My signature below is to certify that this patient is under my care and that I, or nurse practitioner, or a physician's data analysis assistant working with me, has a face-to -face encounter with this patient.
[2017-03-07] MEDS ORDERED: Acetaminophen IV 1,000 MG/100 ML INFUS..BTL IVPB PRN (16:11)
[2017-03-07] MEDS: Ketorolac 30 MG/ML VIAL IVP PRN (16:27)
[2017-03-07] MEDS: Cyprohepatdine 4 MG TABLET PO SCH (21:23)
[2017-03-07] MEDS: traZODone 50 MG TABLET PO SCH (21:24)
[2017-03-07] MEDS: Insulin Degludec [Tresiba Flextouch U-100] SQ SCH (21:29)
[2017-03-08] MEDS: *HR* OxyCODONE Immed Rel 5 MG TABLET PO PRN ×4 (03:49→21:08)
[2017-03-08] MEDS: *HR* Enoxaparin 30 MG/0.3 ML SYRINGE SQ SCH ×2 (05:10→16:58)
[2017-03-08 05:30] LABS: Hemoglobin 7.4 g/dL (11.5-15.4)
[2017-03-08 05:38] LABS: BUN/Creatinine Ratio 17 (6-26); Blood Urea Nitrogen 14 mg/dL (7-20); Calcium 8.9 mg/dL (8.6-10.8); Carbon Dioxide 19 mEq/L (19-29); Chloride 98 mEq/L (98-109); Glucose 181 mg/dL (70-99); Osmolality,Calculated 267 (280-300); Potassium 3.9 mEq/L (3.5-4.5); Sodium 126 mEq/L (136-145); eGFR For African Americans > 60 (> 60); eGFR For Non-African Americans > 60 (> 60)
[2017-03-08] MEDS ORDERED: Furosemide 20 MG/2 ML VIAL IVP ONE ×2 (05:53→14:23)
[2017-03-08] MEDS: Insulin LISPRO 300 UNITS/3 ML VIAL SQ SCH ×4 (07:54→20:38)
[2017-03-08] MEDS: Gabapentin 400 MG CAPSULE PO SCH ×3 (07:57→20:22)
[2017-03-08] MEDS: *HR* Metformin 500 MG TABLET PO SCH ×2 (07:57→20:23)
[2017-03-08] MEDS: cloZAPine 100 MG TABLET PO SCH (07:57)
[2017-03-08] MEDS: Topiramate 100 MG TABLET PO SCH ×2 (07:58→20:23)
[2017-03-08] MEDS ORDERED: 0.9 % Sodium Chloride 250 ML ONE ×2 (08:00→11:18)
[2017-03-08] MEDS: (Liraglutide [Victoza 2-Pak] 1.8 MG) SQ SCH (09:16)
--- NOTE | 2017-03-08 09:49 | Orthopedics Progress Note ---
Date of Encounter: 03/08/17 Time of Encounter: 09:48 - Assessment and Plan (1) Arthritis of right knee Current Visit: Yes Status: Chronic (2) Insulin dependent diabetes mellitus Current Visit: Yes Status: Chronic (3) Hemoglobin A1c less than 7.0% Current Visit: Yes Status: Chronic (4) Bipolar disorder Current Visit: Yes Status: Acute Qualifiers: Active/Remission status: remission status unspecified Qualified Code(s): F31.9 - Bipolar disorder, unspecified (5) Asthma Current Visit: Yes Status: Chronic Qualifiers: Asthma severity: unspecified severity Asthma complication type: uncomplicated Qualified Code(s): J45.909 - Unspecified asthma, uncomplicated (6) GERD (gastroesophageal reflux disease) Current Visit: Yes Status: Chronic Qualifiers: Esophagitis presence: esophagitis presence not specified Qualified Code(s) : K21.9 - Gastro-esophageal reflux disease without esophagitis (7) Migraine Current Visit: Yes Status: Chronic Qualifiers: Migraine type: unspecified Status migrainosus presence: without status migrainosus Intractability: not intractable Qualified Code(s): G43.909 - Migraine, unspecified, not intractable, without status migrainosus (8) Hypothyroidism Current Visit: Yes Status: Chronic Qualifiers: Hypothyroidism type: unspecified Qualified Code(s): E03.9 - Hypothyroidism , unspecified (9) BMI 40.0-44.9, adult Current Visit: Yes Status: Chronic (10) Acute blood loss anemia Current Visit: Yes Status: Acute (11) Vasovagal episode Current Visit: Yes Status: Acute Subjective Interval history: Patient was seen this morning doing well without complaints. Afebrile vital signs stable. Operative extremity: Neurovascularly intact Dressing clean dry and intact Calves nontender Assessment and plan: Continue with postoperative care Hematocrit 23 acute blood loss anemia transfuse 2 units packed red blood cells Objective Vital signs: Vital Signs Temp Pulse Resp BP Pulse Ox 03/08/17 09:37 97.7 F 96 16 122/72 97 03/08/17 08:34 98.0 F 95 16 141/81 96 03/08/17 08:25 96 03/08/17 08:19 97.5 F L 100 16 150/78 96 03/08/17 06:49 98.1 F 100 20 124/80 98 03/08/17 04:28 98.6 F 104 17 116/76 94 03/08/17 00:39 98.6 F 101 16 109/73 94 03/07/17 21:20 106 126/75 03/07/17 19:06 98.1 F 100 16 125/74 95 03/07/17 14:50 98.6 F 105 18 127/81 97 03/07/17 11:13 97.6 F 100 20 115/78 94 Intake and Output 03/07/17 03/08/17 03/08/17 23:59 07:59 15:59 Intake Total 345 / 345 200 / 200 240 / 240 Output Total 1500 / 1500 Balance 345 / 345 -1300 / -1300 240 / 240 Intake: Oral 345 / 345 200 / 200 240 / 240 Blood Product 0 / 0 Rbcs Leuko Poor As-1 0 / 0 Unit [id number] Output: Urine 1500 / 1500 Other: Meal Breakfast Percent of Meal Consumed 25% # Voids 1 Weight 124.1 kg Blood Glucose* 181 197 Patient Weight 03/08/17 23:59 Weight 124.1 kg - Labs CBC & BMP: 03/08/17 04:33 03/08/17 04:33 Labs: Abnormal lab results Hgb 7.4 g/dL (11.5-15.4) L D 03/08/17 04:33 Hct 23.0 % (35.3-44.9) L 03/08/17 04:33 Sodium 126 mEq/L (136-145) L 03/08/17 04:33 Glucose 181 mg/dL (70-99) H 03/08/17 04:33 POC Glucose 197 (58-89) H 03/08/17 06:53 Calculated Osmolality 267 (280-300) L 03/08/17 04:33 - VTE Documentation of Mechanical Device: Venous foot pump, device Consult Discharge Plan - Plan Additional Instructions: Discharge Instructions: Total Knee Replacement Please call [facility] ([phone]), your Primary Care Physician, or report to the Emergency Room if you have any of the following symptoms: Nausea, vomiting, fever greater that 101.5, swelling, chest pain, shortness of breath, increased pain/redness/drainage/odor for your incision site, numbness/ tingling, or any other concerning symptoms. ACTIVITY:Weight-bearing as tolerated. You may progress off support (crutches or walker) as tolerated. MEDICATIONS: Upon discharge resume your home medications. Take all the medications as prescribed. Take a stool softener if taking narcotic pain medications. Stool softeners are only effective if you drink enough fluids. Drink 6-8 glass of water or fluids a day, unless this is not allowed for another health problem. Despite using stool softeners, if you haven't had a bowel movement in 3 days, please switch to a gentle laxative. Gentle laxatives are sold over the counter. You should have a bowel movement within 24 hours, if not call the office. You will be discharged from the hospital with a prescription for pain medication. You are encouraged to decrease the use of narcotic pain medication as tolerated. Should you require a refill, please call the office. [facility] prescribes narcotic pain medication for only 4-6 weeks after surgery. If you require pain medication beyond this time period, you may be referred to your Primary Care Physician or to the Pain Clinic for further evaluation. Plan ahead for refills on pain medication as many narcotics either need to be picked up at the office or mailed. It is best to call 48-72 hours in advance of needing a prescription refill so you don't run out of medication. To help control the post-operative pain, you may take NSAIDs (Aleve,Advil, Motrin, Ibuprofen, Naprosyn) or Tylenol as prescribed on the bottle in addition to the pain medication. ANTICOAGULATION (blood thinners): Continue your Aspirin, Lovenox or Coumadin as prescribed to help prevent a blood clot in the leg or in the lungs. As long as your incision remains dry and you tolerate the NSAIDs (Aleve, Advil, Motrin, ibuprofen, naprosyn), it is OK to use the NSAIDS while you are taking your anticoagulation medication. Should your incision start to drain, stop the NSAID and contact our office. Common symptoms of blood clot in the legs include: localized pain, swelling, calf tenderness, redness or discoloration of the skin. Blood clot in the lung symptoms include: shortness of breath, rapid pulse, sweating, and chest pain that worsens with deep breathing, coughing up blood, lightheadedness, feelings of anxiety. If you experience any of these symptoms notify your physician immediately, go to the emergency room, or if having trouble breathing, call 911. WOUND CARE: Leave the dressing on for 7 to 10days. You may change the dressing if it becomes saturated greater than 50%. Do not get the dressing wet at anytime. Wash your hands with antibacterial soap, rinse and dry prior to any wound care. If you have apple the visiting nurse or rehab facility can remove the stapes 10-14 days after surgery and place steri-strips across the wound. Leave the steri-strips in place until they fall off on their won. You may let water from the shower run on top of the steri-strips. If you do not have a visiting nurse or rehab facility, you will need to return to the office at 10-14 days for the apple to be removed. If you have itching or redness around the dressing call the office. FOLLOW-UP: Please follow up with your surgeon in the orthopedic clinic in 4 weeks from the day of surgery. If you have apple that need to be removed, you will need to come back to the office in 10-14 days from the day of surgery. Referrals: Aguilar Young MD [Partnered Physician] - 03/16/17 2:00 pm Eron Shook, PAC [Primary Care Provider] - Prescriptions: cloZAPine [Clozaril] 150 mg PO DAILY #3 Gabapentin [Neurontin] 800 mg PO TID #15 Topiramate [Topamax] 200 mg PO BID #6 Trazodone HCl 100 mg PO HS #3
[2017-03-08] MEDS ORDERED: Naloxone 0.4 MG/ML INJ IVP ONE (10:03)
--- NOTE | 2017-03-08 11:31 | Event Note ---
Date of Encounter: 03/08/17 Time of Encounter: 12:10 PCR - POD#1 - Right TKR Patient seen at bedside, doing well. Pain controlled. Doing well with PT Patient received 1/2 Narcan today secondary to delirium. Much improved at this point. 2 units blood after type and cross to be given today secondary to low H/H. Recheck H/H as per protocol. Continue to monitor. All questions and concerns addressed. Patient educated on post-operative restrictions and care. Addressed: Patient states that she is very drowsy. Educated patient on reason for blood transfusion and should help with drowsiness. Denies nausea and vomiting and numbness to extremities. Discussed Ensure - patient taking 1 bottle BID at home - would like this here too. Will order for patient. Plan to cut back on pain medication dosing/schedule secondary to fatigue and the improvement with the Narcan. Denies SOB. D/C plan: ECF or Home health. Recheck H/H tomorrow.
[2017-03-08 17:04] LABS: Hematocrit 29.3 % (35.3-44.9)
[2017-03-08 17:07] LABS: Hemoglobin 9.6 g/dL (11.5-15.4)
[2017-03-08] MEDS: Cyprohepatdine 4 MG TABLET PO SCH (20:22)
[2017-03-08] MEDS: traZODone 50 MG TABLET PO SCH (20:23)
[2017-03-08] MEDS: Insulin Degludec [Tresiba Flextouch U-100] SQ SCH (21:09)
[2017-03-09] MEDS: *HR* OxyCODONE Immed Rel 5 MG TABLET PO PRN ×3 (01:06→09:34)
[2017-03-09] MEDS: *HR* Enoxaparin 30 MG/0.3 ML SYRINGE SQ SCH ×2 (05:10→16:52)
[2017-03-09] MEDS: Insulin LISPRO 300 UNITS/3 ML VIAL SQ SCH ×4 (08:32→21:13)
[2017-03-09] MEDS: Topiramate 100 MG TABLET PO SCH ×2 (08:33→21:12)
[2017-03-09] MEDS: *HR* Metformin 500 MG TABLET PO SCH ×2 (08:34→21:12)
[2017-03-09] MEDS: Gabapentin 400 MG CAPSULE PO SCH ×3 (08:34→21:12)
[2017-03-09] MEDS: cloZAPine 100 MG TABLET PO SCH (08:34)
--- NOTE | 2017-03-09 10:04 | Orthopedics Progress Note ---
Date of Encounter: 03/09/17 Time of Encounter: 10:04 - Assessment and Plan (1) Arthritis of right knee Current Visit: Yes Status: Chronic (2) Insulin dependent diabetes mellitus Current Visit: Yes Status: Chronic (3) Hemoglobin A1c less than 7.0% Current Visit: Yes Status: Chronic (4) Bipolar disorder Current Visit: Yes Status: Acute Qualifiers: Active/Remission status: remission status unspecified Qualified Code(s): F31.9 - Bipolar disorder, unspecified (5) Asthma Current Visit: Yes Status: Chronic Qualifiers: Asthma severity: unspecified severity Asthma complication type: uncomplicated Qualified Code(s): J45.909 - Unspecified asthma, uncomplicated (6) GERD (gastroesophageal reflux disease) Current Visit: Yes Status: Chronic Qualifiers: Esophagitis presence: esophagitis presence not specified Qualified Code(s) : K21.9 - Gastro-esophageal reflux disease without esophagitis (7) Migraine Current Visit: Yes Status: Chronic Qualifiers: Migraine type: unspecified Status migrainosus presence: without status migrainosus Intractability: not intractable Qualified Code(s): G43.909 - Migraine, unspecified, not intractable, without status migrainosus (8) Hypothyroidism Current Visit: Yes Status: Chronic Qualifiers: Hypothyroidism type: unspecified Qualified Code(s): E03.9 - Hypothyroidism , unspecified (9) BMI 40.0-44.9, adult Current Visit: Yes Status: Chronic (10) Acute blood loss anemia Current Visit: Yes Status: Acute (11) Vasovagal episode Current Visit: Yes Status: Acute Subjective Interval history: Patient was seen this morning doing well without complaints. Afebrile vital signs stable. Operative extremity: Neurovascularly intact Dressing clean dry and intact Calves nontender Assessment and plan: Continue with postoperative care Hematocrit 29 doing well discharged today Objective Vital signs: Vital Signs Temp Pulse Resp BP Pulse Ox 03/09/17 07:00 98.5 F 104 16 139/87 96 03/09/17 03:54 98.4 F 100 18 144/84 96 03/09/17 00:08 97.9 F 101 18 126/67 94 03/08/17 19:48 98.1 F 105 18 147/79 97 03/08/17 15:10 98.6 F 98 18 128/86 96 03/08/17 14:11 97.6 F 100 16 96 03/08/17 12:49 97.5 F L 101 16 128/66 98 03/08/17 11:49 97.5 F L 101 16 128/66 98 03/08/17 11:34 97.6 F 99 16 126/73 98 03/08/17 10:58 98.8 F 97 16 126/75 96 03/08/17 10:45 98 124/74 94 03/08/17 10:30 98 121/73 95 03/08/17 10:15 97 130/77 94 Intake and Output 03/08/17 03/09/17 03/09/17 23:59 07:59 15:59 Intake Total 500 / 500 1300 / 1300 Balance 500 / 500 1300 / 1300 Intake: Oral 500 / 500 1300 / 1300 Other: # Voids 2 3 # Urine Diapers 2 1 Blood Glucose* 186 197 - Labs CBC & BMP: 03/08/17 16:21 03/08/17 04:33 Labs: Abnormal lab results Hgb 9.6 g/dL (11.5-15.4) L D 03/08/17 16:21 Hct 29.3 % (35.3-44.9) L 03/08/17 16:21 Sodium 126 mEq/L (136-145) L 03/08/17 04:33 Glucose 181 mg/dL (70-99) H 03/08/17 04:33 POC Glucose 200 (58-89) H 03/08/17 16:15 Calculated Osmolality 267 (280-300) L 03/08/17 04:33 - VTE Documentation of Mechanical Device: Venous foot pump, device Consult Discharge Plan - Plan Additional Instructions: Discharge Instructions: Total Knee Replacement Please call [facility] ([phone]), your Primary Care Physician, or report to the Emergency Room if you have any of the following symptoms: Nausea, vomiting, fever greater that 101.5, swelling, chest pain, shortness of breath, increased pain/redness/drainage/odor for your incision site, numbness/ tingling, or any other concerning symptoms. ACTIVITY:Weight-bearing as tolerated. You may progress off support (crutches or walker) as tolerated. MEDICATIONS: Upon discharge resume your home medications. Take all the medications as prescribed. Take a stool softener if taking narcotic pain medications. Stool softeners are only effective if you drink enough fluids. Drink 6-8 glass of water or fluids a day, unless this is not allowed for another health problem. Despite using stool softeners, if you haven't had a bowel movement in 3 days, please switch to a gentle laxative. Gentle laxatives are sold over the counter. You should have a bowel movement within 24 hours, if not call the office. You will be discharged from the hospital with a prescription for pain medication. You are encouraged to decrease the use of narcotic pain medication as tolerated. Should you require a refill, please call the office. [facility] prescribes narcotic pain medication for only 4-6 weeks after surgery. If you require pain medication beyond this time period, you may be referred to your Primary Care Physician or to the Pain Clinic for further evaluation. Plan ahead for refills on pain medication as many narcotics either need to be picked up at the office or mailed. It is best to call 48-72 hours in advance of needing a prescription refill so you don't run out of medication. To help control the post-operative pain, you may take NSAIDs (Aleve,Advil, Motrin, Ibuprofen, Naprosyn) or Tylenol as prescribed on the bottle in addition to the pain medication. ANTICOAGULATION (blood thinners): Continue your Aspirin, Lovenox or Coumadin as prescribed to help prevent a blood clot in the leg or in the lungs. As long as your incision remains dry and you tolerate the NSAIDs (Aleve, Advil, Motrin, ibuprofen, naprosyn), it is OK to use the NSAIDS while you are taking your anticoagulation medication. Should your incision start to drain, stop the NSAID and contact our office. Common symptoms of blood clot in the legs include: localized pain, swelling, calf tenderness, redness or discoloration of the skin. Blood clot in the lung symptoms include: shortness of breath, rapid pulse, sweating, and chest pain that worsens with deep breathing, coughing up blood, lightheadedness, feelings of anxiety. If you experience any of these symptoms notify your physician immediately, go to the emergency room, or if having trouble breathing, call 911. WOUND CARE: Leave the dressing on for 7 to 10days. You may change the dressing if it becomes saturated greater than 50%. Do not get the dressing wet at anytime. Wash your hands with antibacterial soap, rinse and dry prior to any wound care. If you have apple the visiting nurse or rehab facility can remove the stapes 10-14 days after surgery and place steri-strips across the wound. Leave the steri-strips in place until they fall off on their won. You may let water from the shower run on top of the steri-strips. If you do not have a visiting nurse or rehab facility, you will need to return to the office at 10-14 days for the apple to be removed. If you have itching or redness around the dressing call the office. FOLLOW-UP: Please follow up with your surgeon in the orthopedic clinic in 4 weeks from the day of surgery. If you have apple that need to be removed, you will need to come back to the office in 10-14 days from the day of surgery. Referrals: Aguilar Young MD [Partnered Physician] - 03/16/17 2:00 pm Eron Shook, PAC [Primary Care Provider] - Prescriptions: cloZAPine [Clozaril] 150 mg PO DAILY #3 Gabapentin [Neurontin] 800 mg PO TID #15 Topiramate [Topamax] 200 mg PO BID #6 Trazodone HCl 100 mg PO HS #3
[2017-03-09] MEDS: (Liraglutide [Victoza 2-Pak] 1.8 MG) SQ SCH (10:54)
--- NOTE | 2017-03-09 11:34 | Event Note ---
Date of Encounter: 03/09/17 Time of Encounter: 12:00 PCR - POD#3 - Right TKR Patient seen at bedside, doing well. Pain controlled. Doing well with PT Patient received 1/2 Narcan YESTERDAY secondary to delirium. Much improved at this point. 2 units blood given YESTERDAY 03/08 - H/H STABLE TODAY All questions and concerns addressed. Patient educated on post-operative restrictions and care. Addressed: CONTINUE Ensure - patient taking 1 bottle BID at home - would like this here too. Denies SOB. D/C plan: ECF, WAITING FOR AUTH
[2017-03-09] MEDS: Ketorolac 30 MG/ML VIAL IVP PRN ×2 (16:53→23:00)
[2017-03-09] MEDS: traZODone 50 MG TABLET PO SCH (21:12)
[2017-03-09] MEDS: Cyprohepatdine 4 MG TABLET PO SCH (21:12)
[2017-03-09] MEDS: Insulin Degludec [Tresiba Flextouch U-100] SQ SCH (21:13)
[2017-03-10] MEDS: *HR* Enoxaparin 30 MG/0.3 ML SYRINGE SQ SCH (04:47)
[2017-03-10 07:10] VITALS: BP 111/65
--- NOTE | 2017-03-10 08:10 | Orthopedics Progress Note ---
Date of Encounter: 03/10/17 Time of Encounter: 08:08 - Assessment and Plan (1) Status post total knee replacement, right Status: Acute Plan to D/C today. Stable condition. ECF or HH. (2) Arthritis of right knee Status: Chronic (3) Bipolar disorder Status: Acute Qualifiers: Active/Remission status: remission status unspecified Qualified Code(s): F31.9 - Bipolar disorder, unspecified (4) Vasovagal episode Status: Acute (5) Asthma Status: Chronic Qualifiers: Asthma severity: unspecified severity Asthma complication type: uncomplicated Qualified Code(s): J45.909 - Unspecified asthma, uncomplicated (6) BMI 40.0-44.9, adult Status: Chronic (7) GERD (gastroesophageal reflux disease) Status: Chronic Qualifiers: Esophagitis presence: esophagitis presence not specified Qualified Code(s) : K21.9 - Gastro-esophageal reflux disease without esophagitis (8) Hypothyroidism Status: Chronic Qualifiers: Hypothyroidism type: unspecified Qualified Code(s): E03.9 - Hypothyroidism , unspecified (9) Insulin dependent diabetes mellitus Status: Chronic (10) Migraine Status: Chronic Qualifiers: Migraine type: unspecified Status migrainosus presence: without status migrainosus Intractability: not intractable Qualified Code(s): G43.909 - Migraine, unspecified, not intractable, without status migrainosus Subjective Principal diagnosis: s/p Left TKR 03/06/17 Interval history: POD#4 - Left TKR Patient doing well. Afebrile. A&O x 3. Awaiting placement versus . Changing pain medication to [place]. Incision c/d/i. No erythema or bleeding. No calf tenderness. NV intact Objective Vital signs: Vital Signs Temp Pulse Resp BP Pulse Ox 03/10/17 07:04 98.7 F 94 16 111/65 98 03/10/17 05:22 97.5 F L 85 15 107/88 96 03/10/17 04:58 98 F 90 18 122/71 98 03/09/17 23:38 98.9 F 80 16 105/62 96 03/09/17 20:00 96 03/09/17 18:50 98.2 F 105 16 109/63 96 03/09/17 14:29 98.5 F 102 16 139/86 94 03/09/17 10:08 98.3 F 106 18 134/78 95 Intake and Output 03/09/17 03/10/17 03/10/17 23:59 07:59 15:59 Intake Total 50 / 50 50 / 50 Output Total 750 / 750 Balance -700 / -700 50 / 50 Intake: Oral 50 / 50 50 / 50 Output: Urine 750 / 750 Other: # Voids 1 Weight 120.247 kg Blood Glucose* 150 164 Incision: clean and dry - Labs CBC & BMP: 03/08/17 16:21 03/08/17 04:33 Labs: Abnormal lab results Hgb 9.6 g/dL (11.5-15.4) L D 03/08/17 16:21 Hct 29.3 % (35.3-44.9) L 03/08/17 16:21 Sodium 126 mEq/L (136-145) L 03/08/17 04:33 Glucose 181 mg/dL (70-99) H 03/08/17 04:33 POC Glucose 150 (58-89) H 03/09/17 21:10 Calculated Osmolality 267 (280-300) L 03/08/17 04:33 - VTE Documentation of Mechanical Device: Venous foot pump, device Consult Discharge Plan - Plan Additional Instructions: Discharge Instructions: Total Knee Replacement Please call [facility] ([phone]), your Primary Care Physician, or report to the Emergency Room if you have any of the following symptoms: Nausea, vomiting, fever greater that 101.5, swelling, chest pain, shortness of breath, increased pain/redness/drainage/odor for your incision site, numbness/ tingling, or any other concerning symptoms. ACTIVITY:Weight-bearing as tolerated. You may progress off support (crutches or walker) as tolerated. MEDICATIONS: Upon discharge resume your home medications. Take all the medications as prescribed. Take a stool softener if taking narcotic pain medications. Stool softeners are only effective if you drink enough fluids. Drink 6-8 glass of water or fluids a day, unless this is not allowed for another health problem. Despite using stool softeners, if you haven't had a bowel movement in 3 days, please switch to a gentle laxative. Gentle laxatives are sold over the counter. You should have a bowel movement within 24 hours, if not call the office. You will be discharged from the hospital with a prescription for pain medication. You are encouraged to decrease the use of narcotic pain medication as tolerated. Should you require a refill, please call the office. [facility] prescribes narcotic pain medication for only 4-6 weeks after surgery. If you require pain medication beyond this time period, you may be referred to your Primary Care Physician or to the Pain Clinic for further evaluation. Plan ahead for refills on pain medication as many narcotics either need to be picked up at the office or mailed. It is best to call 48-72 hours in advance of needing a prescription refill so you don't run out of medication. To help control the post-operative pain, you may take NSAIDs (Aleve,Advil, Motrin, Ibuprofen, Naprosyn) or Tylenol as prescribed on the bottle in addition to the pain medication. ANTICOAGULATION (blood thinners): Continue your Aspirin, Lovenox or Coumadin as prescribed to help prevent a blood clot in the leg or in the lungs. As long as your incision remains dry and you tolerate the NSAIDs (Aleve, Advil, Motrin, ibuprofen, naprosyn), it is OK to use the NSAIDS while you are taking your anticoagulation medication. Should your incision start to drain, stop the NSAID and contact our office. Common symptoms of blood clot in the legs include: localized pain, swelling, calf tenderness, redness or discoloration of the skin. Blood clot in the lung symptoms include: shortness of breath, rapid pulse, sweating, and chest pain that worsens with deep breathing, coughing up blood, lightheadedness, feelings of anxiety. If you experience any of these symptoms notify your physician immediately, go to the emergency room, or if having trouble breathing, call 911. WOUND CARE: Leave the dressing on for 7 to 10days. You may change the dressing if it becomes saturated greater than 50%. Do not get the dressing wet at anytime. Wash your hands with antibacterial soap, rinse and dry prior to any wound care. If you have apple the visiting nurse or rehab facility can remove the stapes 10-14 days after surgery [address] steri-strips across the wound. Leave the steri-strips in place until they fall off on their won. You may let water from the shower run on top of the steri-strips. If you do not have a visiting nurse or rehab facility, you will need to return to the office at 10-14 days for the apple to be removed. If you have itching or redness around the dressing call the office. FOLLOW-UP: Please follow up with your surgeon in the orthopedic clinic in 4 weeks from the day of surgery. If you have apple that need to be removed, you will need to come back to the office in 10-14 days from the day of surgery. Referrals: Aguilar Young MD [Partnered Physician] - 03/16/17 2:00 pm Nakia Devlin PAC [Physician Caddy Packer] - 03/16/17 2:00 pm Prescriptions: HYDROcodone/Acet 5/325 mg [[place] 5-325 mg] 1 tab PO Q8HR PRN #12 tab PRN Reason: Pain cloZAPine [Clozaril] 150 mg PO DAILY #3 Gabapentin [Neurontin] 800 mg PO TID #15 Topiramate [Topamax] 200 mg PO BID #6 Trazodone HCl 100 mg PO HS #3
[2017-03-10] MEDS: Topiramate 100 MG TABLET PO SCH (08:40)
[2017-03-10] MEDS: *HR* Metformin 500 MG TABLET PO SCH (08:40)
[2017-03-10] MEDS: cloZAPine 100 MG TABLET PO SCH (08:40)
[2017-03-10] MEDS: Gabapentin 400 MG CAPSULE PO SCH (08:40)
[2017-03-10] MEDS: Insulin LISPRO 300 UNITS/3 ML VIAL SQ SCH ×2 (08:41→12:14)
[2017-03-10] MEDS: *HR* OxyCODONE Immed Rel 5 MG TABLET PO PRN ×2 (08:54→12:46)
[2017-03-10] MEDS: (Liraglutide [Victoza 2-Pak] 1.8 MG) SQ SCH (09:02)
--- NOTE | 2017-03-10 12:39 | Event Note ---
Date of Encounter: 03/10/17 Time of Encounter: 12:20 PCR - POD#4 - Right TKR Patient seen at bedside with 2 family members present. Patient doing well, alert and oriented. Pain controlled. Doing well with PT - however PT concerned regarding flexion - patient aware of this concern - encouraged her to participate in therapy upon discharge - navigator and social work working on getting everything arranged. All questions and concerns addressed. Patient educated on post-operative restrictions and care. Addressed: CONTINUE Ensure - patient taking 1 bottle BID at home. Denies SOB. Pain - patient has pain contract - has appt with family provider who does her pain management in 3 days (Tuesday 03/13). Patient receiving only enough pain medication upon discharge to get to this appt. Educated patient if any concerns regarding her incision, surgery, or the operative extremity she is to contact our office for management. D/C plan: HOME - patient to leave this afternoon.
== END 2017-03-10 13:00 | DRG 302 ==
LOC: SAMDAY 08:34 → 3NENU 14:00
PROVIDERS: ADMIT Orthopaedic Surgery; ATTEND Orthopaedic Surgery

== ENCOUNTER 2017-09-11 12:07 | Inpatient (IN) ==
--- NOTE | 2017-09-10 13:42 | Discharge Summary ---
<Gemma De La Torre E - Last Filed: 09/10/17 13:40> Date of Encounter: 09/10/17 - Discharge Diagnosis (1) Painful orthopaedic hardware Priority: Primary Status: Chronic (2) GERD (gastroesophageal reflux disease) Priority: Secondary Status: Chronic Qualifiers: Esophagitis presence: esophagitis presence not specified Qualified Code(s) : K21.9 - Gastro-esophageal reflux disease without esophagitis (3) Chronic pain Priority: Secondary Status: Chronic Qualifiers: Chronic pain type: other chronic pain Qualified Code(s): G89.29 - Other chronic pain (4) Bipolar disorder Priority: Secondary Status: Chronic Qualifiers: Active/Remission status: remission status unspecified (5) Asthma Priority: Secondary Status: Chronic Qualifiers: Asthma severity: unspecified severity Asthma persistence: unspecified Asthma complication type: unspecified Qualified Code(s): J45.909 - Unspecified asthma, uncomplicated (6) GERD (gastroesophageal reflux disease) Priority: Secondary Status: Chronic Qualifiers: Esophagitis presence: esophagitis presence not specified (7) Hypothyroidism Priority: Secondary Status: Chronic Qualifiers: Hypothyroidism type: unspecified (8) Status post total knee replacement, right Priority: Secondary Status: Chronic (9) Diabetes mellitus Priority: Secondary Status: Chronic Qualifiers: Diabetes mellitus type: type 2 Diabetes mellitus complication status: with neurologic complications Diabetes mellitus complication detail: with unspecified neuropathy Diabetes mellitus buttermaker helper insulin use: with buttermaker helper use Qualified Code(s): E11.40 - Type 2 diabetes mellitus with diabetic neuropathy, unspecified; Z79.4 - emt intermediate (current) use of insulin; Z79.4 - residential (current) use of insulin; Z79.4 - residential (current) use of insulin; Z79.4 - emt intermediate (current) use of insulin - Discharge Medications Home Medications: Atorvastatin Calcium [Lipitor] 20 mg PO HS 11/17/16 [History] Cyclobenzaprine [Flexeril] 10 mg PO TID PRN 11/17/16 [History] Cyprohepatdine [Periactin] 12 mg PO HS 11/17/16 [History] Estradiol [Estrace] 1 mg PO DAILY 11/17/16 [History] Melatonin [Melatin] 3 mg PO HS PRN 11/17/16 [History] Metformin HCl [Glucophage] 1,000 mg PO BID 11/17/16 [History] Benztropine Mesylate 1 mg PO HS 03/06/17 [History] Insulin Degludec [Tresiba Flextouch U-100] 18 unit SQ HS 03/06/17 [History] Liraglutide [Victoza 2-Jonatan] 1.8 mg SQ QAM 03/06/17 [History] Propranolol [Inderal] 20 mg PO TID 03/06/17 [History] hydrOXYzine HCl [Hydroxyzine HCl] 50 mg PO QID 03/06/17 [History] Gabapentin [Neurontin] 800 mg PO TID #15 03/07/17 [Rx] Topiramate [Topamax] 200 mg PO BID #6 03/07/17 [Rx] Trazodone HCl 100 mg PO HS #3 03/07/17 [Rx] HYDROcodone/Acet 5/325 mg [[place] 5-325 mg] 1 tab PO Q8HR PRN #12 tab 03/10/17 [ Rx] Aspirin Enteric Coated [Aspirin EC] 325 mg PO DAILY 21 Days #21 tablet. [Rx] HYDROcodone/Acet 5/325 mg [[place] 5-325 mg] 1 tab PO Q4-6H PRN 7 Days #35 tab [Rx] Biotin 5 mg PO DAILY 09/11/17 [History] Celecoxib [Celebrex] 100 mg PO DAILY 09/11/17 [History] Cholecalciferol (D-3) [Vitamin D] 1,000 unit PO DAILY 09/11/17 [History] Esomeprazole Magnesium [Nexium] 20 mg PO DAILY 09/11/17 [History] Levothyroxine [Synthroid] 125 mcg PO 0630 09/11/17 [History] Loxapine Succinate [Loxapine] 25 mg PO BID 09/11/17 [History] cloZAPine [Clozaril] 200 mg PO HS 09/11/17 [History] clonazePAM [Klonopin] 0.5 mg PO HS PRN 09/11/17 [History] Allergies/Adverse Reactions: 3 Allergy/AdvReac Type Severity Reaction Status Date / Time acetaminophen [From Percocet] Allergy See Verified 09/11/17 13:27 Comments cephalexin [From Keflex] Allergy Difficulty Verified 09/11/17 13:27 Breathing morphine Allergy Hives Verified 09/11/17 13:27 Tetanus Vaccines and Toxoid Allergy Redness of Verified 09/11/17 13:27 [Tetanus Vaccines & Toxoid] Skin atorvastatin [From Lipitor] AdvReac Nausea Verified 09/11/17 13:27 naproxen [From Naprosyn] AdvReac Gastrointestinal Verified 09/11/17 13:27 Upset Oxycodone [From Percocet] AdvReac See Verified 09/11/17 13:27 Comments Primary care physician: Eron Shook - Patient Status Disposition: Home, Self-Care Condition: Good - Discharge Instructions Follow Up With: Eron Shook, PAC [Primary Care Provider] - - Hospital Course Hospital course: Ms. Cooper is a 52 year old female - Time Spent with Patient Total time spent providing and/or coordinating discharge services: <Aguilar Young - Last Filed: 09/12/17 07:01> Date of Encounter: 09/12/17 Time of Encounter: 07:00 - Discharge Diagnosis (1) Insulin dependent diabetes mellitus Priority: Secondary Status: Chronic (2) Bipolar disorder Priority: Secondary Status: Chronic Qualifiers: Active/Remission status: remission status unspecified Qualified Code(s): F31.9 - Bipolar disorder, unspecified (3) Asthma Priority: Secondary Status: Chronic Qualifiers: Asthma severity: unspecified severity Asthma persistence: unspecified Asthma complication type: unspecified Qualified Code(s): J45.909 - Unspecified asthma, uncomplicated (4) GERD (gastroesophageal reflux disease) Priority: Secondary Status: Chronic Qualifiers: Esophagitis presence: esophagitis presence not specified Qualified Code(s) : K21.9 - Gastro-esophageal reflux disease without esophagitis (5) Migraine Priority: Secondary Status: Chronic Qualifiers: Migraine type: unspecified Status migrainosus presence: without status migrainosus Intractability: not intractable Qualified Code(s): G43.909 - Migraine, unspecified, not intractable, without status migrainosus (6) Hypothyroidism Priority: Secondary Status: Chronic Qualifiers: Hypothyroidism type: unspecified Qualified Code(s): E03.9 - Hypothyroidism , unspecified (7) Painful orthopaedic hardware Priority: Primary Status: Chronic (8) GERD (gastroesophageal reflux disease) Priority: Secondary Status: Chronic Qualifiers: Esophagitis presence: esophagitis presence not specified Qualified Code(s) : K21.9 - Gastro-esophageal reflux disease without esophagitis (9) Status post revision of total replacement of right knee Priority: Primary Status: Acute Primary care physician: Eron Shook - Patient Status Functional capacity at discharge: uses cane/walker Overall status at discharge: patient is progressing back to baseline - Hospital Course Hospital course: Ms. Cooper is a 52 year old female Status post revision right total knee The patient had an uneventful postoperative course. They received antibiotics and physical therapy and were discharged in stable condition. There will follow -up in the office in 2 weeks. - Time Spent with Patient Total time spent providing and/or coordinating discharge services:
--- NOTE | 2017-09-10 13:47 | Physician Discharge Referral ---
Home Health/Hosp Referral Info Transfer to: Home Health Attending Provider: Dr Aguilar Young - Diagnosis (1) Painful orthopaedic hardware Priority: Primary Status: Chronic (2) GERD (gastroesophageal reflux disease) Priority: Secondary Status: Chronic (3) Chronic pain Priority: Secondary Status: Chronic (4) Bipolar disorder Priority: Secondary Status: Chronic (5) Asthma Priority: Secondary Status: Chronic (6) GERD (gastroesophageal reflux disease) Priority: Secondary Status: Chronic (7) Hypothyroidism Priority: Secondary Status: Chronic (8) Diabetes mellitus Priority: Secondary Status: Chronic (9) Status post revision of total replacement of right knee Priority: Primary Status: Acute - Respiratory Orders Smoking Cessation: Smoking cessation has been advised. For more information, call the [place] [employer] Quit Line at 8-767-TVEW-NOW. - Dressing/Wound Care Site: right knee Type of Dressing/Treatments w/Frequency: Opsite placed. Keep dressing intact until first follow up appointment. If > 50% saturated, notify office, remove dressing and place appropriate dressing back in place. Leave Zipline intact. Opsite dressing is water resistant, not water- proof. OK to shower, but do not get dressing wet. - Diet/Nutrition Diet/Nutrition Orders: Regular - Activity Activity Orders: Up ad che, Ambulate, Chair, Walker Activity: List: Total Knee replacement Precautions x 6 weeks Apply cold therapy wrap 3-6x/day for 20 minutes at a time. Encourage ambulation throughout the day and incentive spirometer 10x/hour. Elevate affected extremity above heart as tolerated. Brace: Wear knee immobilizer at night x 2 weeks. - Services Needed Following services are medically necessary services: Nursing, Home Health Aide, Physical Therapy, Occupational Therapy - Transfer Medications Prescriptions: Aspirin Enteric Coated [Aspirin EC] 325 mg PO DAILY 21 Days #21 tablet. HYDROcodone/Acet 5/325 mg [[place] 5-325 mg] 1 tab PO Q4-6H PRN 7 Days #35 tab PRN Reason: Severe Pain Home Medications: Atorvastatin Calcium [Lipitor] 20 mg PO HS 11/17/16 [History] Cyclobenzaprine [Flexeril] 10 mg PO TID PRN 11/17/16 [History] Cyprohepatdine [Periactin] 8 mg PO HS 11/17/16 [History] Esomeprazole Magnesium [Nexium] 40 mg PO DAILY 11/17/16 [History] Estradiol [Estrace] 1 mg PO DAILY 11/17/16 [History] Levothyroxine Sodium [Levoxyl] 150 mcg PO DAILY 11/17/16 [History] Melatonin [Melatin] 3 mg PO HS PRN 11/17/16 [History] Metformin HCl [Glucophage] 1,000 mg PO BID 11/17/16 [History] Mccarr-3/Dha/Epa/Fish Oil [Fish Oil 1,000 mg Softgel] 1 each PO DAILY 11/17/16 [ History] Aspirin Enteric Coated [Aspirin EC] 325 mg PO DAILY #21 tablet. 03/05/17 [Rx] Benztropine Mesylate 1 mg PO HS 03/06/17 [History] Ibuprofen [Motrin] 800 mg PO Q8HR PRN 03/06/17 [History] Insulin Degludec [Tresiba Flextouch U-100] 20 unit SQ HS 03/06/17 [History] Liraglutide [Victoza 2-Jonatan] 1.8 mg SQ QAM 03/06/17 [History] Propranolol [Inderal] 20 mg PO TID 03/06/17 [History] hydrOXYzine HCl [Hydroxyzine HCl] 50 mg PO QID 03/06/17 [History] Gabapentin [Neurontin] 800 mg PO TID #15 03/07/17 [Rx] Topiramate [Topamax] 200 mg PO BID #6 03/07/17 [Rx] Trazodone HCl 100 mg PO HS #3 03/07/17 [Rx] cloZAPine [Clozaril] 150 mg PO DAILY #3 03/07/17 [Rx] HYDROcodone/Acet 5/325 mg [[place] 5-325 mg] 1 tab PO Q8HR PRN #12 tab 03/10/17 [ Rx] Aspirin Enteric Coated [Aspirin EC] 325 mg PO DAILY 21 Days #21 tablet. [Rx] HYDROcodone/Acet 5/325 mg [[place] 5-325 mg] 1 tab PO Q4-6H PRN 7 Days #35 tab [Rx] Allergies/Adverse Reactions: 3 Allergy/AdvReac Type Severity Reaction Status Date / Time acetaminophen [From Percocet] Allergy See Verified 08/28/17 16:02 Comments atorvastatin [From Lipitor] Allergy Nausea Verified 08/28/17 16:02 cephalexin [From Keflex] Allergy Difficulty Verified 08/28/17 16:02 Breathing morphine Allergy Hives Verified 08/28/17 16:02 Oxycodone [From Percocet] Allergy See Verified 08/28/17 16:02 Comments naproxen [From Naprosyn] AdvReac Gastrointestinal Verified 08/28/17 16:02 Upset Tetanus Vaccines and Toxoid AdvReac Redness of Verified 08/28/17 16:02 [Tetanus Vaccines & Toxoid] Skin Certification: Further, I certify that my clinical findings support that this patient is homebound (i.e. absences from home require considerable and taxing effort and are for medical reasons or scientologist services or infrequently or short duration when for other reasons) because: Homebound Reason: Post-surgery restriction and or conditions limit ability to leave home Attestation: My signature below is to certify that this patient is under my care and that I, or nurse practitioner, or a physician administrative assistant data entry working with me, has a face-to- face encounter with this patient.
[2017-09-11] MEDS ORDERED: Lidocaine -MPF 1% 2 ML VIAL ID ONE (12:30)
[2017-09-11] MEDS ORDERED: Plasma-Lyte A (PH 7.4) 1,000 ML IVC SCH (12:30)
[2017-09-11] MEDS ORDERED: Ringers Solution, Lactated 1,000 ML IVC SCH ×2 (12:30→17:35)
[2017-09-11] MEDS ORDERED: Albuterol 2.5 MG/3 ML NEBULIZER IH ONE (12:30)
[2017-09-11] MEDS ORDERED: Vancomycin 1,750 MG in D5% in Water 250 ML IVPB ONE (12:30)
--- NOTE | 2017-09-11 12:32 | History & Physical Report ---
Date of Encounter: 09/11/17 Time of Encounter: 12:32 24 Hour HP Update - Instructions Instructions: If the History and Physical is less than 30 days old and was completed prior to A.M. admission and or procedure and has NOT been updated on calendar day of procedure please complete this update prior to performing procedure. - Update Patient reports changes in Medical Condition: No Changes in examination, assessment, or condition: No Changes in Medication: No Preop tests/diagnostics Reviewed: Yes Surgery Remains Indicated: Yes Consent for Planned Operative Procedure(s) Verified: Yes - Pre-Operative Checklist Preoperative Checklist Indicated: No Prophylactic Antibiotic Ordered: Yes Is VTE Prophylaxis Indicated?: Yes
[2017-09-11] MEDS ORDERED: Albuterol 2.5 MG/3 ML NEBULIZER ONE (12:33)
[2017-09-11] MEDS ORDERED: Vancomycin 1,750 MG in D5% in Water 500 ML IVPB ONE (12:43)
[2017-09-11] MEDS ORDERED: *HR* FentaNYL (PF) 100 MCG/2 ML VIAL ONE ×4 (13:50→15:19)
[2017-09-11] MEDS ORDERED: *HR* Midazolam HCl 2 MG/2 ML VIAL ONE ×2 (13:50→15:19)
[2017-09-11] MEDS ORDERED: *HR* Propofol 200 MG/20 ML VIAL IVP ONE (13:50)
[2017-09-11] MEDS ORDERED: Lidocaine -MPF 2% 2 ML VIAL ONE (13:54)
--- NOTE | 2017-09-11 14:01 | Anesthesia Evaluation PreOp ---
Date of Encounter: 09/11/17 Time of Encounter: 13:59 - Past History Planned Operation: revision right TKA Cardiac History: HTN, Hyperlipidemia Pulmonary History: Denies Any Significant HX, Former smoker (quit 2014), Asthma INFORMATION SECURITY ARCHITECT History: Other (DM neuropathy) Other Medical History: Diabetes Type II, Thyroid (hypo), GERD, Other (Morbid obesity BMI 40) Anesthesia History: No Prior Anesthetic Complications, Past Anesthesia (tomi, right TKA (03-06), septoplasty, C/S) : No Alcohol Use: none Drug use: none Medications and Allergies Atorvastatin Calcium [Lipitor] 20 mg PO HS 11/17/16 [History] Cyclobenzaprine [Flexeril] 10 mg PO TID PRN 11/17/16 [History] Cyprohepatdine [Periactin] 12 mg PO HS 11/17/16 [History] Estradiol [Estrace] 1 mg PO DAILY 11/17/16 [History] Melatonin [Melatin] 3 mg PO HS PRN 11/17/16 [History] Metformin HCl [Glucophage] 1,000 mg PO BID 11/17/16 [History] Benztropine Mesylate 1 mg PO HS 03/06/17 [History] Insulin Degludec [Tresiba Flextouch U-100] 18 unit SQ HS 03/06/17 [History] Liraglutide [Victoza 2-Jonatan] 1.8 mg SQ QAM 03/06/17 [History] Propranolol [Inderal] 20 mg PO TID 03/06/17 [History] hydrOXYzine HCl [Hydroxyzine HCl] 50 mg PO QID 03/06/17 [History] Gabapentin [Neurontin] 800 mg PO TID #15 03/07/17 [Rx] Topiramate [Topamax] 200 mg PO BID #6 03/07/17 [Rx] Trazodone HCl 100 mg PO HS #3 03/07/17 [Rx] HYDROcodone/Acet 5/325 mg [[place] 5-325 mg] 1 tab PO Q8HR PRN #12 tab 03/10/17 [ Rx] Aspirin Enteric Coated [Aspirin EC] 325 mg PO DAILY 21 Days #21 tablet. [Rx] HYDROcodone/Acet 5/325 mg [[place] 5-325 mg] 1 tab PO Q4-6H PRN 7 Days #35 tab [Rx] Biotin 5 mg PO DAILY 09/11/17 [History] Celecoxib [Celebrex] 100 mg PO DAILY 09/11/17 [History] Cholecalciferol (D-3) [Vitamin D] 1,000 unit PO DAILY 09/11/17 [History] Esomeprazole Magnesium [Nexium] 20 mg PO DAILY 09/11/17 [History] Levothyroxine [Synthroid] 125 mcg PO 0630 09/11/17 [History] Loxapine Succinate [Loxapine] 25 mg PO BID 09/11/17 [History] cloZAPine [Clozaril] 200 mg PO HS 09/11/17 [History] clonazePAM [Klonopin] 0.5 mg PO HS PRN 09/11/17 [History] 3 Allergy/AdvReac Type Severity Reaction Status Date / Time acetaminophen [From Percocet] Allergy See Verified 09/11/17 13:27 Comments cephalexin [From Keflex] Allergy Difficulty Verified 09/11/17 13:27 Breathing morphine Allergy Hives Verified 09/11/17 13:27 Tetanus Vaccines and Toxoid Allergy Redness of Verified 09/11/17 13:27 [Tetanus Vaccines & Toxoid] Skin atorvastatin [From Lipitor] AdvReac Nausea Verified 09/11/17 13:27 naproxen [From Naprosyn] AdvReac Gastrointestinal Verified 09/11/17 13:27 Upset Oxycodone [From Percocet] AdvReac See Verified 09/11/17 13:27 Comments - Meds/Allergy Pre-op Review Medications Reviewed: Yes Allergies Reviewed: Yes Beta Blockers on Current Med List: Yes If Beta Blockers taken, Date/Time (Last Dose taken): today 0800 Anesthesia Exam Selected Entries 09/11/17 12:36 09/11/17 12:48 Temperature 98.1 F Pulse Rate 89 Blood Pressure 124/80 O2 Sat by Pulse Oximetry 96 Oxygen Delivery Method Room Air Weight: 112kg BMI 40 NPO (# of Hours): 8 - HEENT Pupil (Motor): EOMI Mallampati: II Teeth: Poor dentition Oral Opening: Greater than 3 - INFORMATION SECURITY ARCHITECT LOC: Oriented INFORMATION SECURITY ARCHITECT Motor: Normal RUE, Normal LUE, Normal RLE, Normal LLE, Normal Face INFORMATION SECURITY ARCHITECT Sensory: Normal: RUE, LUE, RLE, LLE, Face - Cardiac Rhythm: Regular Murmur: None - Pulmonary Breath Sounds: bilateral Clear Respiratory Effort: Symmetrical Anesthesia Assess/Plan ASA Score: 3 Modified [place] Scale for Level of Consciousness: Cooperative, oriented, and tranquil Anesthetic Plan: General (with block) Monitoring Plan: Standard Monitors Recovery Plan: PACU (agrees to GA and block)
[2017-09-11] MEDS ORDERED: Povidone-Iodine 5% 60 ML, Sodium Chloride IRRigation 500 ML IR ONE (14:30)
[2017-09-11] MEDS ORDERED: ROPIVACAINE HCL/PF 0.5% 30 ML VIAL ONE (15:12)
[2017-09-11] MEDS ORDERED: Ethanol\\Acetic Acid\\Na Ace\\Ben 1,000 ML IRRIG.SOLN IR ONE (15:13)
[2017-09-11] MEDS ORDERED: Bupivacaine/Clonidine Syringe 1 EACH SYRINGE ONE (15:13)
--- NOTE | 2017-09-11 15:56 | Anesthesia Procedures ---
Date of Encounter: 09/11/17 Time of Encounter: 15:25 Procedures: Anesthesia - Nerve Block Procedure Date: 09/11/17 (1525) Time: 15:25 Allergies/Adv Reactions: 3 Allergy/AdvReac Type Severity Reaction Status Date / Time acetaminophen [From Percocet] Allergy See Verified 09/11/17 13:27 Comments cephalexin [From Keflex] Allergy Difficulty Verified 09/11/17 13:27 Breathing morphine Allergy Hives Verified 09/11/17 13:27 Tetanus Vaccines and Toxoid Allergy Redness of Verified 09/11/17 13:27 [Tetanus Vaccines & Toxoid] Skin atorvastatin [From Lipitor] AdvReac Nausea Verified 09/11/17 13:27 naproxen [From Naprosyn] AdvReac Gastrointestinal Verified 09/11/17 13:27 Upset Oxycodone [From Percocet] AdvReac See Verified 09/11/17 13:27 Comments Pre-op Diagnosis: unstable right knee Surgical Procedure: right knee revision Checklist: Correct Patient Identifier, Correct procedure, History checked Correct side: Right Blood Thinner: No Monitor Applied: EKG, BP, Pulse Oximetry Supplemental Oxygen via Nasal Cannula (L/min): 2 Sedation: Versed (mg): 2 Sedation: Fentanyl (mcg): 50 Indication: Post Op Analgesia Pre-op Neuro Deficits: No Block Type: Femoral (0.5% ropivicaine 30cc), Other (ipack 0.25% bupivicaine 20cc ) Catheter placed: No Sterile Technique: Yes Ultrasound used: Yes Anatomy identified: Yes Visual spread of Local: Yes Neuro Stimulation: No Blood on Needle Aspiration: No Smooth Injection of Local: Yes Pain with Injection of Local: No Prep: Chlorhexadine Needle: 22 x 50 mm Stimuplex (femoral), 21 x 100 mm Stimuplex (ipack) Local: 0.25% Bupivicaine w/Clonidine 20 mcg/cc, Ropivacaine Volume (cc): 50 Number of Attempts: 1 Complications: None/effective block
[2017-09-11] MEDS ORDERED: *HR* Promethazine 25 MG/ML VIAL IVP PRN (15:57)
[2017-09-11] MEDS ORDERED: *HR* HYDROmorphone (PF) 1 MG/ML SYRINGE IVP PRN (15:57)
--- NOTE | 2017-09-11 16:22 | Orthopedic Operative Note ---
Date of procedure: 09/11/17 Pre-op diagnosis: Unstable right total knee Post-op diagnosis: same Procedure: Procedure: Right revision total knee Estimated blood loss: 300 Hardware: Metal and polyethylene replacement. Biomet SSK femur: 65, 18 x 120 stem Tibia: 71, 14 x 80 stem Constrained Lita: 10 Exam Under anesthesia: Full flexion and extension significant mid flexion varus valgus instability Procedural Notes: Significant instability components well fixed. Operative procedure: The patient was brought to the operating room and placed on the operating room table. After general anesthesia was administered the operative knee was examined. Findings were noted in the exam under anesthesia. The operative extremity was prepped and draped in sterile surgical fashion. The patient received IV antibiotics prior to skin incision. A standard midline incision was made centered over the patella through the old incision. The incision was made through the skin and subcutaneous tissue. A medial parapatellar tendon approach was performed. Care was taken to preserve tissue along the medial aspect of the patella. And to protect the patella tendon. The deep MCL was released off the medial tibia. The infra patella fat pad was excised. Fluid was encountered this was normal joint fluid, Cultures were obtained and gram . The knee was brought into flexion the poly-was removed. The interface between the patient's femoral component and distal femur were disrupted with a osteotome and oscillating saw. Femoral component was removed removed without significant bone loss. Attention was then turned to the tibial component. The same technique was used to remove the tibial component by disrupting the interface between the patient's tibial component and the patients proximal tibia. The tibial component was removed without significant bone loss. The tibia was sized to a 71 it was reamed up to a routine by 80 Trial had good fit and fixation. The femur was sized to a 65, was reamed up to a 18 x 120 The finishing guide was seated and the box cut was made. The trial had good fit and fixation. Both trial components were seated and the 10 constrained Lita was seated and secured. The knee had full flexion and full extension with no instability. Patella had excellent patella tracking. The trial components were removed. The knee sat for 2 minutes with a Betadine saline solution. It was irrigated out with 2 L of pulse irrigation. The components were assembled on the back table, the tibia cemented first followed by the femur. The 10 constrained liner was seated and secure. The knee was brought to full extension while the cement hardened. After the cement hardened the knee was irrigated out again. The PA close the knee. The extensor mechanism was closed with a running #2 Fiberwire suture and a running #2 PDS suture. The deep tissue was irrigated and closed deep with #1 PDS suture superficially with 0 PDS suture. The skin was closed with skin apple. The patient was placed in a sterile dressing and postoperative brace. They were extubated and transferred to recovery room in stable condition. Anesthesia: GETA Surgeon: Aguilar Young Was there an human resources assistant present: Yes Biomass Production Manager: Gemma De La Torre Estimated blood loss (cc): 300 Condition: stable Disposition: PACU
[2017-09-11 17:21] LABS: Hemoglobin 10.8 g/dL (11.5-15.4)
[2017-09-11] MEDS ORDERED: *HR* Succinylcholine 200 MG/10 ML VIAL IVP ONE (17:29)
--- NOTE | 2017-09-11 17:33 | Anesthesia Evaluation Post Op ---
Date of Encounter: 09/11/17 Time of Encounter: 17:32 - Vital Signs Vital Signs: Vital Signs/O2 Sat/Glucose, Most Current Temp Pulse Resp BP Pulse Ox 09/11/17 17:24 95 20 121/70 94 09/11/17 17:14 96 18 119/82 93 09/11/17 17:04 97.5 F L 95 18 136/88 97 09/11/17 15:29 85 14 111/67 97 - Lungs Lungs: Clear Ascult./Percussion - Airway Airway: Non-obstructed - Cardiovascular Regular Rate - Mental Status Mental Status: Alert & Oriented, Answers Appropriately - Pain Pain Scale: 0 - Nausea Vomiting Nausea Vomiting: Not Present - Hydration Hydration: NPO, Has not voided - Discharge PostOp Status: Transfer Patient to floor
[2017-09-11] MEDS ORDERED: Ondansetron 4 MG/2 ML VIAL IVP PRN (17:35)
[2017-09-11] MEDS ORDERED: Temazepam 15 MG CAPSULE PO PRN (17:35)
[2017-09-11] MEDS ORDERED: D5% in Water 1,000 ML IVC PRN (17:35)
[2017-09-11] MEDS ORDERED: *HR* HYDROcodone/Acet 10/325 mg TABLET PO PRN (17:35)
[2017-09-11] MEDS ORDERED: MOM Conc 10 ML UD.LIQ PO PRN (17:35)
[2017-09-11] MEDS ORDERED: Naloxone 0.4 MG/ML INJ IVP PRN (17:35)
[2017-09-11] MEDS ORDERED: traMADol 50 MG TABLET PO PRN (17:35)
[2017-09-11] MEDS ORDERED: Dextrose Gel 15 GM/37.5 ML TUBE PO PRN ×2 (17:35)
[2017-09-11] MEDS ORDERED: *HR* HYDROcodone/Acet 5/325 mg TABLET PO PRN (17:35)
[2017-09-11] MEDS ORDERED: Melatonin 3 MG TABLET PO PRN (17:35)
[2017-09-11] MEDS ORDERED: clonazePAM 0.5 MG TABLET PO PRN (17:35)
[2017-09-11] MEDS ORDERED: Sennosides 8.6 MG TABLET PO PRN (17:35)
[2017-09-11] MEDS ORDERED: *HR* Dextrose 50 % in Water (Syg) 50 ML SYRINGE IVP PRN (17:35)
[2017-09-11] MEDS ORDERED: *HR* Enoxaparin 30 MG/0.3 ML SYRINGE SQ SCH (18:00)
[2017-09-11] MEDS ORDERED: Ondansetron 4 MG/2 ML VIAL ONE (18:00)
[2017-09-11] MEDS ORDERED: Dexamethasone 4 MG/ML VIAL ONE (18:00)
[2017-09-11] MEDS: Gabapentin 400 MG CAPSULE PO SCH ×2 (18:14→22:44)
[2017-09-11] MEDS: Insulin LISPRO 300 UNITS/3 ML VIAL SQ SCH (18:21)
[2017-09-11] MEDS: *HR* Metformin 500 MG TABLET PO SCH (18:21)
[2017-09-11] MEDS: Clindamycin 900 MG/50 ML 900 MG/50 ML IV.SOLN IVPB SCH (18:21)
[2017-09-11] MEDS: hydrOXYzine pamoate 25 MG CAPSULE PO SCH ×2 (18:21→22:52)
[2017-09-11] MEDS: *HR* Enoxaparin 30 MG/0.3 ML SYRINGE SQ SCH (18:21)
[2017-09-11] MEDS: *HR* HYDROmorphone (PF) 1 MG/ML SYRINGE IVP PRN (19:57)
[2017-09-11] MEDS ORDERED: Insulin LISPRO 300 UNITS/3 ML VIAL SQ SCH (21:00)
[2017-09-11] MEDS ORDERED: cloZAPine 100 MG TABLET PO SCH (21:00)
[2017-09-11] MEDS ORDERED: traZODone 50 MG TABLET PO SCH (21:00)
[2017-09-11] MEDS ORDERED: Cyprohepatdine 4 MG TABLET PO SCH (21:00)
[2017-09-11] MEDS ORDERED: Insulin DETEMIR 100 UNIT/ML X5UNITS SQ SCH (21:00)
[2017-09-11] MEDS: Topiramate 100 MG TABLET PO SCH (22:43)
[2017-09-11] MEDS: (Loxapine Succinate [Loxapine] 25 MG) PO SCH (22:44)
[2017-09-12] MEDS: Clindamycin 900 MG/50 ML 900 MG/50 ML IV.SOLN IVPB SCH (00:23)
[2017-09-12] MEDS: *HR* HYDROmorphone (PF) 1 MG/ML SYRINGE IVP PRN (00:23)
[2017-09-12] MEDS: *HR* Enoxaparin 30 MG/0.3 ML SYRINGE SQ SCH (06:00)
--- NOTE | 2017-09-12 07:02 | Orthopedics Progress Note ---
Date of Encounter: 09/12/17 Time of Encounter: 07:01 - Assessment and Plan (1) Insulin dependent diabetes mellitus Current Visit: No Status: Chronic (2) Bipolar disorder Current Visit: No Status: Chronic Qualifiers: Active/Remission status: remission status unspecified Qualified Code(s): F31.9 - Bipolar disorder, unspecified (3) Asthma Current Visit: No Status: Chronic Qualifiers: Asthma severity: unspecified severity Asthma persistence: unspecified Asthma complication type: unspecified Qualified Code(s): J45.909 - Unspecified asthma, uncomplicated (4) GERD (gastroesophageal reflux disease) Current Visit: No Status: Chronic Qualifiers: Esophagitis presence: esophagitis presence not specified Qualified Code(s) : K21.9 - Gastro-esophageal reflux disease without esophagitis (5) Migraine Current Visit: No Status: Chronic Qualifiers: Migraine type: unspecified Status migrainosus presence: without status migrainosus Intractability: not intractable Qualified Code(s): G43.909 - Migraine, unspecified, not intractable, without status migrainosus (6) Hypothyroidism Current Visit: No Status: Chronic Qualifiers: Hypothyroidism type: unspecified Qualified Code(s): E03.9 - Hypothyroidism , unspecified (7) Painful orthopaedic hardware Current Visit: No Status: Chronic (8) GERD (gastroesophageal reflux disease) Current Visit: No Status: Chronic Qualifiers: Esophagitis presence: esophagitis presence not specified Qualified Code(s) : K21.9 - Gastro-esophageal reflux disease without esophagitis (9) Status post revision of total replacement of right knee Current Visit: No Status: Acute Subjective Interval history: Patient was seen this morning doing well without complaints. Afebrile vital signs stable. Operative extremity: Neurovascularly intact Dressing clean dry and intact Calves nontender Assessment and plan: Continue with postoperative care Hematocrit 35 discharged today Objective Vital signs: Vital Signs Temp Pulse Resp BP Pulse Ox 09/12/17 04:06 98.3 F 78 17 107/66 98 09/12/17 03:53 98.1 F 90 16 95/60 92 09/12/17 00:07 98.1 F 80 18 108/68 98 09/11/17 22:53 91 16 106/72 94 09/11/17 20:00 97.2 F L 80 16 109/74 97 09/11/17 18:53 97.6 F 89 16 108/73 99 09/11/17 18:19 97.5 F L 93 17 117/82 96 09/11/17 17:50 97.4 F L 92 14 106/66 94 09/11/17 17:34 97.0 F L 93 18 124/75 95 09/11/17 17:24 95 20 121/70 94 09/11/17 17:14 96 18 119/82 93 09/11/17 17:04 97.5 F L 95 18 136/88 97 09/11/17 15:29 85 14 111/67 97 09/11/17 12:48 18 124/80 96 09/11/17 12:36 98.1 F 89 18 124/80 96 Intake and Output 09/11/17 09/11/17 09/12/17 15:59 23:59 07:59 Intake Total 650 / 650 Output Total 800 / 800 500 / 500 Balance -150 / -150 -500 / -500 Intake: IV Fluids 50 / 50 Cleocin Premix 900 MG/50 ML 900 50 / 50 mg In 50 ml @ 50 mls/hr IVPB Q8HR [facility] Rx#:[id number] Oral 600 / 600 Output: Urine 500 / 500 500 / 500 Estimated Blood Loss 300 / 300 Other: Meal Dinner Percent of Meal Consumed 100% Stool Size Large Stool Consistency formed # Voids 1 Weight 111.584 kg 113.1 kg Blood Glucose* 138 284 Patient Weight 09/12/17 23:59 Weight 113.1 kg - Labs CBC & BMP: 09/11/17 17:12 Labs: Abnormal lab results Hgb 10.8 g/dL (11.5-15.4) L 09/11/17 17:12 Hct 35.0 % (35.3-44.9) L 09/11/17 17:12 POC Glucose 284 (58-89) H 09/11/17 20:14 - VTE Documentation of Mechanical Device: Venous foot pump, device Consult Discharge Plan - Plan Referrals: Eron Shook, PAC [Primary Care Provider] -
[2017-09-12 07:52] LABS: BUN/Creatinine Ratio 16 (6-26); Blood Urea Nitrogen 12 mg/dL (6-20); Calcium 7.9 mg/dL (8.6-10.3); Carbon Dioxide 21 mEq/L (23-29); Chloride 105 mEq/L (98-107); Glucose 142 mg/dL (70-105); Osmolality,Calculated 280 (280-300); Potassium 3.5 mEq/L (3.5-5.1); Sodium 134 mEq/L (136-145); eGFR For African Americans > 60 (> 60); eGFR For Non-African Americans > 60 (> 60)
[2017-09-12 08:08] LABS: Hematocrit 28.5 % (35.3-44.9)
[2017-09-12 08:13] LABS: Hemoglobin 8.7 g/dL (11.5-15.4)
[2017-09-12] MEDS: Topiramate 100 MG TABLET PO SCH (08:26)
[2017-09-12] MEDS: hydrOXYzine pamoate 25 MG CAPSULE PO SCH (08:26)
[2017-09-12] MEDS: Insulin LISPRO 300 UNITS/3 ML VIAL SQ SCH (08:26)
[2017-09-12] MEDS: Gabapentin 400 MG CAPSULE PO SCH (08:26)
[2017-09-12] MEDS: (Loxapine Succinate [Loxapine] 25 MG) PO SCH (08:27)
[2017-09-12] MEDS: *HR* Metformin 500 MG TABLET PO SCH (08:27)
[2017-09-12] MEDS ORDERED: (Biotin [Biotin] 5 MG) PO SCH (09:00)
[2017-09-12] MEDS ORDERED: Cholecalciferol (D-3) 1,000 UNIT TABLET PO SCH (09:00)
[2017-09-12] MEDS ORDERED: (Liraglutide [Victoza 2-Pak] 1.8 MG) SQ SCH (09:00)
[2017-09-12 10:54] VITALS: BP 119/79
== END 2017-09-12 14:06 | disposition home or self-care (01) | DRG 302 ==
LOC: SAMDAY 12:07 → 3NENU 17:35
PROVIDERS: ADMIT Orthopaedic Surgery; ATTEND Orthopaedic Surgery

== ENCOUNTER 2019-03-06 11:21 | Observation (INO) ==
[2019-03-06] MEDS ORDERED: 0.9 % Sodium Chloride 1,000 ML IVC ONE ×2 (11:53→13:22)
[2019-03-06] MEDS ORDERED: Ondansetron 4 MG/2 ML VIAL IVP ONE (11:53)
--- NOTE | 2019-03-06 11:55 | Emergency Department Note ---
Disposition Clinical Impression: Flank pain, Lung nodules Disposition: Admitted As Inpatient Condition: Fair Forms: ED Satisfaction Letter Time of Disposition: 13:21 General Adult HPI - General Chief complaint: ED Recheck/Abnormal Lab/Rx Stated complaint: Kidney infection Time Seen by Provider: 03/06/19 11:52 Source: patient Limitations: no limitations Nursing Notes Reviewed: Yes Vital Signs Reviewed: Yes - History of Present Illness HPI Narrative: 53-year-old female presents emergency department with concern for worsening left flank pain radiating to left lower quadrant. Patient states that she was recently diagnosed with pyelonephritis and has been taking erythromycin for it. States that she is now getting worse and as developed fever. She also endorses nausea, but no vomiting. Patient reports dysuria, but no hematuria. She denies any diarrhea or constipation. No history of kidney stones, but daughter does have a history of them. Pain Scale: 6 - Related Data Home Medications Medication Instructions Recorded Confirmed Atorvastatin Calcium [Lipitor] 20 mg PO HS 11/17/16 08/29/18 Cyprohepatdine [Periactin] 12 mg PO 11/17/16 08/29/18 Estradiol [Estrace] 1 mg PO DAILY 11/17/16 08/29/18 Metformin HCl [Glucophage] 1,000 mg PO BID 11/17/16 08/29/18 Benztropine Mesylate 1 mg PO 03/06/17 08/29/18 Insulin Degludec [Tresiba 18 unit SQ 03/06/17 08/29/18 Flextouch U-100] Liraglutide [Victoza 2-Jonatan] 0.8 mg SQ [facility] 03/06/17 08/29/18 Biotin 5 mg PO DAILY 09/11/17 08/29/18 Cholecalciferol (D-3) [Vitamin D] 1,000 unit PO DAILY 09/11/17 08/29/18 Levothyroxine [Synthroid] 150 mcg PO 0630 09/11/17 08/29/18 cloZAPine [Clozaril] 200 mg PO HS 09/11/17 08/29/18 clonazePAM [Klonopin] 0.5 mg PO HS 09/11/17 08/29/18 Canagliflozin [Invokana] 1 tab PO DAILY 01/09/18 08/29/18 Glimepiride [Amaryl] 1 tab PO DAILY 01/09/18 08/29/18 Iron 1,000 mg PO DAILY 01/09/18 08/29/18 Levonorgestrel [Mirena] 20 mcg IU Q24H 01/09/18 08/29/18 Baclofen [Lioresal] 10 mg PO TID 08/29/18 08/29/18 Benztropine Mesylate 1 mg PO DAILY 08/29/18 08/29/18 Esomeprazole Magnesium [Nexium] 20 mg PO DAILY 08/29/18 08/29/18 HYDROcodone/Acet 5/325 mg [[place] 1 tab PO Q6H PRN 08/29/18 08/29/18 5-325 mg] Meloxicam 7.5 mg PO BID 08/29/18 08/29/18 Previous Rx's Medication Instructions Recorded Gabapentin [Neurontin] 800 mg PO TID #15 03/07/17 Ondansetron ODT [Zofran ODT] 4 mg SL Q8HR PRN #12 tab.rapdis 08/29/18 Rivaroxaban [Xarelto] 10 mg PO DAILY #20 tablet 08/29/18 Allergies Allergy/AdvReac Type Severity Reaction Status Date / Time acetaminophen [From Percocet] Allergy See Verified 03/06/19 11:41 Comments cephalexin [From Keflex] Allergy Difficulty Verified 03/06/19 11:41 Breathing morphine Allergy Hives Verified 03/06/19 11:41 Tetanus Vaccines and Toxoid Allergy Redness of Verified 03/06/19 11:41 [Tetanus Vaccines & Toxoid] Skin atorvastatin [From Lipitor] AdvReac Nausea Verified 03/06/19 11:41 naproxen [From Naprosyn] AdvReac Gastrointestinal Verified 03/06/19 11:41 Upset oxycodone [From Percocet] AdvReac See Verified 03/06/19 11:41 Comments All systems ED: reviewed and negative except as stated. Review of Systems: As Per HPI Constitutional: Denies: fever Cardiovascular: Denies: chest pain Respiratory: Denies: dyspnea Gastrointestinal: Reports: abdominal pain, nausea. Denies: vomiting, diarrhea, constipation Genitourinary: Reports: dysuria. Denies: hematuria Musculoskeletal: Reports: back pain Integumentary: Denies: rash Past Medical History - Past Medical History Attestation: Yes The following information was validated with the patient. Medical history: Reports: asthma, diabetes, GERD, hyperlipidemia, migraine Surgical history: Reports: , cholecystectomy, knee replacement Psychiatric history: Reports: anxiety, bipolar, depression, panic disorder - Social History Smoking Status: Never smoker Smokeless Tobacco Status: No Alcohol use: Reports: none Drug use: Reports: none Physical Exam - General Limitations: no limitations General appearance: alert, in no apparent distress - Head Head exam: normocephalic - Eye Eye exam: Present: EOMI - ENT ENT exam: mucous membranes moist - Neck Neck exam: Present: trachea midline - Chest Chest inspection: Present: symmetric chest wall rise - Respiratory Respiratory exam: Present: normal lung sounds bilaterally. Absent: respiratory distress, prolonged expiratory phase - Cardiovascular Cardiovascular exam: Present: regular rate, normal rhythm - Abdominal Exam Abdominal exam: Present: soft, Non-Tender. Absent: distention, guarding, rebound, rigidity - Extremities Exam Extremities exam: Present: normal capillary refill - Back Exam Back exam: Present: CVA tenderness (L). Absent: CVA tenderness (R) - Neurological Exam Neurological exam: Present: alert, oriented X3 - Psychiatric Psychiatric exam: Present: normal affect, normal mood - Skin Skin exam: Present: warm, dry, intact, normal color. Absent: rash Course Vital Signs Temperature 97.4 F L 03/06/19 11:37 Pulse Rate 96 03/06/19 11:37 Respiratory Rate 16 03/06/19 11:37 Blood Pressure 122/80 03/06/19 11:37 O2 Sat by Pulse Oximetry 97 03/06/19 11:37 Temperature 97.4 F L 03/06/19 11:37 Pulse Rate 89 03/06/19 13:15 Respiratory Rate 16 03/06/19 13:15 Blood Pressure 118/86 03/06/19 13:15 O2 Sat by Pulse Oximetry 95 03/06/19 13:15 Oxygen Delivery Oxygen Delivery Room Air Medical Decision Making - [facility] Narrative Medical decision making narrative: 53-year-old female presented to emergency department with concern for worsening left lower quadrant and left flank pain with subjective fever. Patient hemodynamically stable, still on her uncle on physical exam. We will obtain CT scan of abdomen and pelvis and other labs. Anticipate admission for outpatient management failure. Patient is evidence of urinary tract infection. CT scan of abdomen and pelvis did not reveal any acute intra-abdominal or pelvic abnormality at this time. There was evidence of some lung nodules that I spoke with the patient about. She is a smoker, so she is at higher risk for the possibility of cancer. His recommendation for CT of the chest in 1 year. Patient understands this. Patient was given Cipro for her pyelonephritis. Patient hemodynamically stable, pain significantly improved at time of admission. Abdomen/Pelvis CT 03/06/19 11:56 IMPRESSION: Mild bladder wall thickening either due to incomplete bladder distention or wall thickening from underlying cystitis. No hydronephrosis noted. Fatty liver and diverticulosis Ground-glass opacity in the lingula, likely postinflammatory-infectious. Tiny subpleural nodular densities in the lung bases of doubtful clinical significance.. Consider chest CT follow-up in 12 months time D/ / Wilian Muhammad MD / Wilian Muhammad MD Interpreting Provider: Wilian Muhammad MD - Lab Data Result diagrams: 03/06/19 12:18 03/06/19 12:18 Lab Results 03/06/19 03/06/19 03/06/19 Range/Units 12:18 12:18 12:37 WBC 9.4 (4.3-11.1) K/mcL RBC 5.04 H (3.82-4.97) M/mcL Hgb 13.7 (11.5-15.4) g/dL Hct 43.4 (35.3-44.9) % MCV 86.1 (83.0-100.0) fL MCH 27.2 L (28.0-33.3) pg MCHC 31.6 (31.6-35.5) g/dL RDW 14.6 H (11.5-14.5) % Plt Count 288 (140-400) K/mcL MPV 9.9 (9.4-12.4) fL Immature Gran % 0.3 (0-4) % Seg Neutrophils % 77.6 % Lymphocytes % 15.0 % Monocytes % 5.6 % Eosinophils % 1.1 % Basophils % 0.4 % Neutrophils # 7.3 (1.6-8.9) K/mcL Lymphocytes # 1.4 (0.6-4.6) K/mcL Monocytes # 0.5 (0.0-1.3) K/mcL Eosinophils # 0.1 (0.0-0.6) K/mcL Basophils # 0.0 (0.0-0.2) K/mcL Sodium 139 (136-145) mEq/L Potassium 4.0 (3.5-5.1) mEq/L Chloride 106 (98-107) mEq/L Carbon Dioxide 20 L (23-29) mEq/L BUN 11 (6-20) mg/dL Creatinine 0.75 (0.60-1.20) mg/dL Est GFR ( Amer) > 60 (> 60) Est GFR (Non-Af Amer) > 60 (> 60) BUN/Creatinine Ratio 15 (6-26) Calcium 9.6 (8.6-10.3) mg/dL Total Bilirubin 0.5 (0.3-1.0) mg/dL AST 18 (13-39) Units/L ALT 20 (7-52) Units/L Alkaline Phosphatase 85 (34-104) Units/L Serum Total Protein 6.9 (6.4-8.9) g/dL Albumin 4.5 (3.5-5.7) g/dL Globulin 2.4 (2.4-3.5) g/dL Albumin/Globulin Ratio 1.9 (1.1-2.2) Lipase 35 (11-82) Units/L Urine Color Yellow (Yellow) Urine Clarity Slightly Cloudy A (Clear) Urine pH 6.0 (5.0-8.0) pH Units Ur Specific [place] 1.023 (1.010-1.025) Urine Protein Negative (Neg-Trace) mg/dL Urine Glucose (UA) >=1000 H (Normal) mg/dL Urine Ketones Negative (Negative) mg/dL Urine Blood Negative (Negative) Urine Nitrite Negative (Negative) Urine Bilirubin Negative (Negative) Urine Urobilinogen Normal (Normal) mg/dL Ur Leukocyte Esterase Moderate H (Negative) Urine Microscopic RBC 0-3 (0-3) per hpf Urine Microscopic WBC 50-100 H (0-3) per hpf Ur Squamous Epith Cells Many H (None-Few) per lpf Urine Bacteria Moderate H (None-Few) per hpf Hyaline Casts None Seen (None-Few) per lpf Ur Culture Indicated? YES A (NO)
[2019-03-06] MEDS ORDERED: *HR* FentaNYL (PF) 100 MCG/2 ML VIAL IVP ONE (11:57)
--- NOTE | 2019-03-06 12:30 | Emergency Department Note ---
Disposition Clinical Impression: Flank pain Disposition: Still a Patient Forms: ED Satisfaction Letter Time of Disposition: 12:30 General Adult HPI - General Chief complaint: ED Recheck/Abnormal Lab/Rx Stated complaint: Kidney infection Time Seen by Provider: 03/06/19 11:52 Source: patient Limitations: no limitations Nursing Notes Reviewed: Yes Vital Signs Reviewed: Yes - History of Present Illness HPI Narrative: Attestation note: Patient was seen with the emergency medicine resident/nurse practitioner/physician assistant chief engineer/transitional resident/medical student: Dr. Maya often. This includes well any procedures performed for this significant portion thereof which are to include EKG and bedside ultrasound I have personally performed a face to face evaluation on this patient. I have reviewed and agree with history and physical examination patient management and disposition. Briefly the salient points of the case are as follows: 53-year-old female 3 days erythromycin for pyelonephritis worsening pain. Spell is in moderate distress has chills low-grade fever patient get IV fluids and analgesics abdominal pelvic CT scan repeat urinalysis admission being anticipated for failure of outpatient antibiotics. Disposition pending. Pain Scale: 6 - Related Data Home Medications Medication Instructions Recorded Confirmed Atorvastatin Calcium [Lipitor] 20 mg PO HS 11/17/16 08/29/18 Cyprohepatdine [Periactin] 12 mg PO HS 11/17/16 08/29/18 Estradiol [Estrace] 1 mg PO DAILY 11/17/16 08/29/18 Metformin HCl [Glucophage] 1,000 mg PO BID 11/17/16 08/29/18 Benztropine Mesylate 1 mg PO 03/06/17 08/29/18 Insulin Degludec [Tresiba 18 unit SQ 03/06/17 08/29/18 Flextouch U-100] Liraglutide [Victoza 2-Jonatan] 0.8 mg SQ QAM 03/06/17 08/29/18 Biotin 5 mg PO DAILY 09/11/17 08/29/18 Cholecalciferol (D-3) [Vitamin D] 1,000 unit PO DAILY 09/11/17 08/29/18 Levothyroxine [Synthroid] 150 mcg PO 0630 09/11/17 08/29/18 cloZAPine [Clozaril] 200 mg PO HS 09/11/17 08/29/18 clonazePAM [Klonopin] 0.5 mg PO HS 09/11/17 08/29/18 Canagliflozin [Invokana] 1 tab PO DAILY 01/09/18 08/29/18 Glimepiride [Amaryl] 1 tab PO DAILY 01/09/18 08/29/18 Iron 1,000 mg PO DAILY 01/09/18 08/29/18 Levonorgestrel [Mirena] 20 mcg IU Q24H 01/09/18 08/29/18 Baclofen [Lioresal] 10 mg PO TID 08/29/18 08/29/18 Benztropine Mesylate 1 mg PO DAILY 08/29/18 08/29/18 Esomeprazole Magnesium [Nexium] 20 mg PO DAILY 08/29/18 08/29/18 HYDROcodone/Acet 5/325 mg [[place] 1 tab PO Q6H PRN 08/29/18 08/29/18 5-325 mg] Meloxicam 7.5 mg PO BID 08/29/18 08/29/18 Previous Rx's Medication Instructions Recorded Gabapentin [Neurontin] 800 mg PO TID #15 03/07/17 Ondansetron ODT [Zofran ODT] 4 mg SL Q8HR PRN #12 tab.rapdis 08/29/18 Rivaroxaban [Xarelto] 10 mg PO DAILY #20 tablet 08/29/18 Allergies Allergy/AdvReac Type Severity Reaction Status Date / Time acetaminophen [From Percocet] Allergy See Verified 03/06/19 11:41 Comments cephalexin [From Keflex] Allergy Difficulty Verified 03/06/19 11:41 Breathing morphine Allergy Hives Verified 03/06/19 11:41 Tetanus Vaccines and Toxoid Allergy Redness of Verified 03/06/19 11:41 [Tetanus Vaccines & Toxoid] Skin atorvastatin [From Lipitor] AdvReac Nausea Verified 03/06/19 11:41 naproxen [From Naprosyn] AdvReac Gastrointestinal Verified 03/06/19 11:41 Upset oxycodone [From Percocet] AdvReac See Verified 03/06/19 11:41 Comments Constitutional: Denies: fever Cardiovascular: Denies: chest pain Respiratory: Denies: dyspnea Gastrointestinal: Reports: abdominal pain, nausea. Denies: vomiting, diarrhea, constipation Genitourinary: Reports: dysuria. Denies: hematuria Musculoskeletal: Reports: back pain Integumentary: Denies: rash Past Medical History - Past Medical History Medical history: Reports: asthma, diabetes, GERD, hyperlipidemia, migraine Surgical history: Reports: , cholecystectomy, knee replacement Psychiatric history: Reports: anxiety, bipolar, depression, panic disorder - Social History Smoking Status: Never smoker Smokeless Tobacco Status: No Alcohol use: Reports: none Drug use: Reports: none Physical Exam - General Limitations: no limitations General appearance: alert, in no apparent distress Course Vital Signs Temperature 97.4 F L 03/06/19 11:37 Pulse Rate 96 03/06/19 11:37 Respiratory Rate 16 03/06/19 11:37 Blood Pressure 122/80 03/06/19 11:37 O2 Sat by Pulse Oximetry 97 03/06/19 11:37 Temperature 97.4 F L 03/06/19 11:37 Pulse Rate 96 03/06/19 11:37 Respiratory Rate 16 03/06/19 11:37 Blood Pressure 122/80 03/06/19 11:37 O2 Sat by Pulse Oximetry 97 03/06/19 11:37 Oxygen Delivery Oxygen Delivery Room Air
[2019-03-06 12:42] LABS: Basophils % 0.4 %; Eosinophils # 0.1 K/mcL (0.0-0.6); Eosinophils % 1.1 %; Hematocrit 43.4 % (35.3-44.9); Hemoglobin 13.7 g/dL (11.5-15.4); Immature Granulocytes % 0.3 % (0-4); Lymphocytes # 1.4 K/mcL (0.6-4.6); Mean Corpuscular HGB Conc 31.6 g/dL (31.6-35.5); Mean Corpuscular Hemoglobin 27.2 pg (28.0-33.3); Mean Corpuscular Volume 86.1 fL (83.0-100.0); Mean Platelet Volume 9.9 fL (9.4-12.4); Monocytes # 0.5 K/mcL (0.0-1.3); Monocytes % 5.6 %; Neutrophils # 7.3 K/mcL (1.6-8.9); Platelet Count 288 K/mcL (140-400); Red Blood Count 5.04 M/mcL (3.82-4.97); Red Cell Distribution Width 14.6 % (11.5-14.5); Segmented Neutrophils % 77.6 %; White Blood Count 9.4 K/mcL (4.3-11.1)
[2019-03-06 12:49] LABS: Bilirubin,Urine Negative (Negative); Blood,Urine Negative (Negative); Color,Urine Yellow (Yellow); Glucose,Urine (UA) >=1000 mg/dL (Normal); Ketones,Urine Negative (Negative); Leukocyte Esterase,Urine Moderate (Negative); Nitrite,Urine Negative (Negative); Protein,Urine Negative (Neg-Trace); Specific Gravity,Urine 1.023 (1.010-1.025); Urobilinogen,Urine Normal (Normal)
[2019-03-06 12:52] LABS: Bacteria,Urine Moderate per hpf (None-Few); Clarity,Urine Slightly Cloudy (Clear); Hyaline Casts,Urine None Seen per lpf (None-Few); RBC,Urine 0-3 per hpf (0-3); Squamous Epithelial Cell,Urine Many per lpf (None-Few); WBC,Urine 50-100 per hpf (0-3)
[2019-03-06 13:11] LABS: Alanine Aminotransferase 20 Units/L (7-52); Albumin 4.5 g/dL (3.5-5.7); Albumin/Globulin Ratio 1.9 (1.1-2.2); Alkaline Phosphatase 85 Units/L (34-104); Aspartate Amino Transferase 18 Units/L (13-39); BUN/Creatinine Ratio 15 (6-26); Bilirubin,Total 0.5 mg/dL (0.3-1.0); Blood Urea Nitrogen 11 mg/dL (6-20); Calcium 9.6 mg/dL (8.6-10.3); Carbon Dioxide 20 mEq/L (23-29); Chloride 106 mEq/L (98-107); Globulin 2.4 g/dL (2.4-3.5); Lipase 35 Units/L (11-82); Sodium 139 mEq/L (136-145); Total Protein 6.9 g/dL (6.4-8.9); eGFR For African Americans > 60 (> 60); eGFR For Non-African Americans > 60 (> 60)
[2019-03-06 13:33] LABS: Glucose 155 mg/dL (70-105); Osmolality,Calculated 291 (280-300)
[2019-03-06] MEDS ORDERED: Ondansetron 4 MG/2 ML VIAL IVP PRN (15:02)
[2019-03-06] MEDS ORDERED: Naloxone 0.4 MG/ML INJ IVP PRN (15:02)
[2019-03-06] MEDS ORDERED: *HR* Dextrose 50 % in Water (Syg) 50 ML SYRINGE IVP PRN (15:08)
[2019-03-06] MEDS ORDERED: Dextrose Gel 15 GM/37.5 ML TUBE PO PRN ×2 (15:08)
[2019-03-06] MEDS ORDERED: D5% in Water 1,000 ML IVC PRN (15:08)
[2019-03-06] MEDS: Insulin LISPRO 300 UNITS/3 ML VIAL SQ SCH (16:41)
[2019-03-06] MEDS: traMADol 50 MG TABLET PO PRN (17:48)
--- NOTE | 2019-03-06 17:58 | Internal Med History&Physical ---
Date of Encounter: 03/06/19 Time of Encounter: 16:00 Internal Medicine - H&P: HPI Admitted From: Home Plans for Post Hospital Care: Home History of present illness: Ms. Cooper is a 53 year old female with a PMHx of IDDM, recurrent Cystitis, Schizoaffective Disorder, MDD, Asthma, Migraine, Obesity, Hypothyroidism, Hyperlipidemia and GERD. She presents with a 6 day history of left flank pain. The flank pain is nonradiating, it is sharp in nature and aggravated by movement. She currently grades it at 7/10. Patient states that the symptoms started with frequency, dysuria and lower abdominal pain. She reported to urgent care 3 days ago where she was given a prescription for 2 days of erythromycin and told to go to the hospital because of concerns for pyelonephritis. Patient however felt she would do okay on 2 days of antibiotics and did not come to the hospital. Since yesterday she has been having a severe left flank pain with associated nausea, vomiting low grade fever and chills and decided to seek further care at our facility. Past Med Surg Social Fam HX - Past Medical History Medical history: asthma, diabetes, GERD, hyperlipidemia, migraine Additional medical history: bipolar disorder,back pain,vertigo,allergic rhinitis,degenerative disease lumbosacral spine, Psychiatric history: anxiety, bipolar, depression, panic disorder - Past Surgical History Surgical History: , cholecystectomy, knee replacement Additional surgical history: nasal septoplasty,tonsillectomy and adenoidectomy,dilatation and curettage,removal of warts and moles,right knee arthroscopy,right total knee replacement,right total knee replacement/revision - Social History Smoking Status: Former smoker Smokeless Tobacco Status: No Alcohol use: none Drug use: none - Family History Mother Adopted: Yes - Additional Family History Additional family history: Noncontributory Internal Medicine - H&P: Meds Atorvastatin Calcium [Lipitor] 20 mg PO HS 11/17/16 [History] Estradiol [Estrace] 1 mg PO DAILY 11/17/16 [History] Insulin Degludec [Tresiba Flextouch U-100] 35 unit SQ HS 03/06/17 [History] Liraglutide [Victoza 2-Jonatan] 0.8 mg SQ QAM 03/06/17 [History] Gabapentin [Neurontin] 800 mg PO TID #15 03/07/17 [Rx] Biotin 5 mg PO DAILY 09/11/17 [History] Cholecalciferol (D-3) [Vitamin D] 5,000 unit PO DAILY 09/11/17 [History] Levothyroxine [Synthroid] 125 mcg PO 0630 09/11/17 [History] cloZAPine [Clozaril] 300 mg PO HS 09/11/17 [History] Glimepiride [Amaryl] 1 tab PO DAILY 01/09/18 [History] Levonorgestrel [Mirena] 20 mcg IU Q24H 01/09/18 [History] Baclofen [Lioresal] 10 mg PO TID 08/29/18 [History] Esomeprazole Magnesium [Nexium] 20 mg PO DAILY 08/29/18 [History] HYDROcodone/Acet 5/325 mg [[place] 5-325 mg] 1 tab PO Q6H PRN 08/29/18 [History] Ondansetron ODT [Zofran ODT] 4 mg SL Q8HR PRN #12 tab.rapdis 08/29/18 [Rx] Famciclovir 125 mg PO BID 03/06/19 [History] Lactobacillus [Culturelle] 1 cap PO BID 03/06/19 [History] Mirtazapine 7.5 mg PO HS 03/06/19 [History] Nabumetone 500 mg PO BID 03/06/19 [History] Segluromet 7.5-1,000 mg Tablet 7.5 - 1,000 mg PO BID 03/06/19 [History] Allergy/AdvReac Type Severity Reaction Status Date / Time acetaminophen [From Percocet] Allergy See Verified 03/06/19 11:41 Comments cephalexin [From Keflex] Allergy Difficulty Verified 03/06/19 11:41 Breathing morphine Allergy Hives Verified 03/06/19 11:41 Tetanus Vaccines and Toxoid Allergy Redness of Verified 03/06/19 11:41 [Tetanus Vaccines & Toxoid] Skin atorvastatin [From Lipitor] AdvReac Nausea Verified 03/06/19 11:41 naproxen [From Naprosyn] AdvReac Gastrointestinal Verified 03/06/19 11:41 Upset oxycodone [From Percocet] AdvReac See Verified 03/06/19 11:41 Comments All Systems PM: A 10-system review of systems was performed and is negative for pertinent findings except as documented above in the HPI. Review of systems: GENERAL: Admits chils and low grade fever HEENT: No rhinorrhea, No sore throat, No ear pain or discharge, No dysphagia or odynophagia PULMONARY: No cough, No chest pain, No Sputum production, No dyspnea on exertion CARDIOVASCULAR: No chest pain, no palpitations, No shortness of breath, No PND, No orthopnea GASTROINTESTINAL: Complains of left flank pain. Also has suprapubic pain on micturition. Admits nausea and vomiting. No hematemesis, No hematochezia GENITOURINARY: Admits dysuria and frequency MUSKULOSKELETAL: No edema, No swelling, No pain INTEGUMENTARY: No new skin lesions NERVOUS SYSTEM: No Dizziness, No weakness, No slurred speech, No diplopia or blurred/ loss vision, No numbness, No tinglng sensation. - Constitutional Constitutional: as per HPI - Constitutional Vitals: Temp Pulse Resp BP Pulse Ox 97.7 F 82 16 115/80 97 03/06/19 15:43 03/06/19 15:43 03/06/19 15:43 03/06/19 15:43 03/06/19 15:43 Exam: GENERAL: Not in distress. Alert and Oriented HEENT: EOMI, PERRLA MOUTH: Good oral hygiene NECK:No JVD, No lymph nodes. CHEST AND LUNGS: Normal breath sounds, no wheezes or crackles HEART: S1 and S2 normal, no murmurs ABDOMEN: Positive CVA tenderness, mild suprapubic tenderness, Soft with normal bowel sounds. GENITOURINARY: SKIN: Normal color, no rashes, no lesions EXTREMITIES: No deformity, no edema, no tenderness, no joint swelling or clubbing NEUROLOGICAL: Normal cognition, normal motor and sensory exam. Internal Med - H&P Results - Labs CBC & Chem 7: 03/06/19 12:18 03/06/19 12:18 Labs: Short CBC 03/06/19 Range/Units 12:18 WBC 9.4 (4.3-11.1) K/mcL Hgb 13.7 (11.5-15.4) g/dL Hct 43.4 (35.3-44.9) % Plt Count 288 (140-400) K/mcL Neutrophils # 7.3 (1.6-8.9) K/mcL BMP 03/06/19 12:18 Sodium 139 Potassium 4.0 Chloride 106 Carbon Dioxide 20 L BUN 11 Creatinine 0.75 Glucose 155 H Calcium 9.6 Liver Function 03/06/19 Range/Units 12:18 Total Bilirubin 0.5 (0.3-1.0) mg/dL AST 18 (13-39) Units/L ALT 20 (7-52) Units/L Alkaline Phosphatase 85 (34-104) Units/L Albumin 4.5 (3.5-5.7) g/dL Urine 03/06/19 Range/Units 12:37 Urine Color Yellow (Yellow) Urine Clarity Slightly Cloudy A (Clear) Urine pH 6.0 (5.0-8.0) pH Units Ur Specific [place] 1.023 (1.010-1.025) Urine Protein Negative (Neg-Trace) mg/dL Urine Glucose (UA) >=1000 H (Normal) mg/dL - Impressions ITS Impressions Abdomen/Pelvis CT 03/06/19 11:56 IMPRESSION: Mild bladder wall thickening either due to incomplete bladder distention or wall thickening from underlying cystitis. No hydronephrosis noted. Fatty liver and diverticulosis Ground-glass opacity in the lingula, likely postinflammatory-infectious. Tiny subpleural nodular densities in the lung bases of doubtful clinical significance.. Consider chest CT follow-up in 12 months time D/ / Wilian Muhammad MD / Wilian Muhammad MD Interpreting Provider: Wilian Muhammad MD - Assessment and Plan (1) Pyelonephritis Current Visit: Yes Status: Acute (2) BMI 38.0-38.9,adult Current Visit: Yes Status: Chronic (3) Lung nodules Current Visit: Yes Status: Chronic (4) Asthma Current Visit: No Status: Chronic Qualifiers: Asthma severity: unspecified severity Asthma persistence: unspecified Asthma complication type: unspecified Qualified Code(s): J45.909 - Unspecified asthma, uncomplicated (5) GERD (gastroesophageal reflux disease) Current Visit: No Status: Chronic Qualifiers: Esophagitis presence: esophagitis presence not specified Qualified Code(s): K21.9 - Gastro-esophageal reflux disease without esophagitis (6) Hypothyroidism Current Visit: No Status: Chronic Qualifiers: Hypothyroidism type: unspecified Qualified Code(s): E03.9 - Hypothyroidism, unspecified (7) Insulin dependent diabetes mellitus Current Visit: Yes Status: Chronic (8) Major depression Current Visit: No Status: Chronic Qualifiers: Qualified Code(s): F32.9 - Major depressive disorder, single episode, unspecified - Summary of Assessment and Plan Summary of Assessment and Plan: Pyelonephritis * Presented with flank pain with associated fever, chils, nausea and vomiting * Vitals stable on presentation * Positive CVA tenderness * Hx of IDDM and recurrent cystitis * No leukocytosis on labs * Personally reviewed CT abdomen: MIld fat stranding around left kidney suggestive of pyelonephritis. * Will admit patient for observation given her reported systemic symptoms and hx of IDDM * IV Cipro 400mg bid IDDM * Sliding scale * Accuchecks * LAntus 35u qh Obesity * Pateint counseled on weight loss methods Hypothyroidism * Continue home dose of levothyroxine Asthma * Currently no signs or symptoms of an acute exacerbation * Continue home treatment Hyperlipidemia * Continue statins GERD * Continue PPIs DVT prophylaxis * Subcutaneous heparin - Time Spent With Patient Total time spent is greater than 50% in coordination of care (as documented) at patient's floor/unit and/or counseling patient: Greater than 35 minutes (38 minutes)
[2019-03-06] MEDS: *HR* Heparin 5,000 UNIT/ML VIAL SQ SCH (21:16)
[2019-03-06] MEDS ORDERED: traMADol 50 MG TABLET PO ONE (22:20)
[2019-03-07 02:58] LABS: Basophils % 0.4 %; Eosinophils # 0.2 K/mcL (0.0-0.6); Eosinophils % 2.4 %; Hematocrit 37.3 % (35.3-44.9); Immature Granulocytes % 0.6 % (0-4); Lymphocytes # 1.1 K/mcL (0.6-4.6); Lymphocytes % 15.1 %; Mean Corpuscular HGB Conc 30.6 g/dL (31.6-35.5); Mean Corpuscular Hemoglobin 27.3 pg (28.0-33.3); Mean Corpuscular Volume 89.4 fL (83.0-100.0); Mean Platelet Volume 10.1 fL (9.4-12.4); Monocytes # 0.4 K/mcL (0.0-1.3); Monocytes % 5.2 %; Neutrophils # 5.5 K/mcL (1.6-8.9); Platelet Count 231 K/mcL (140-400); Red Blood Count 4.17 M/mcL (3.82-4.97); Red Cell Distribution Width 14.9 % (11.5-14.5); Segmented Neutrophils % 76.3 %; White Blood Count 7.1 K/mcL (4.3-11.1)
[2019-03-07 03:00] LABS: Hemoglobin 11.4 g/dL (11.5-15.4)
[2019-03-07 03:21] LABS: BUN/Creatinine Ratio 13 (6-26); Blood Urea Nitrogen 8 mg/dL (6-20); Calcium 8.9 mg/dL (8.6-10.3); Carbon Dioxide 20 mEq/L (23-29); Chloride 107 mEq/L (98-107); Glucose 130 mg/dL (70-105); Osmolality,Calculated 286 (280-300); Potassium 3.4 mEq/L (3.5-5.1); Sodium 138 mEq/L (136-145); eGFR For African Americans > 60 (> 60); eGFR For Non-African Americans > 60 (> 60)
[2019-03-07] MEDS: *HR* Heparin 5,000 UNIT/ML VIAL SQ SCH ×2 (06:17→13:44)
[2019-03-07] MEDS: Insulin LISPRO 300 UNITS/3 ML VIAL SQ SCH ×2 (08:36→12:07)
[2019-03-07] MEDS: traMADol 50 MG TABLET PO PRN (12:12)
--- NOTE | 2019-03-07 14:32 | Electrocardiograph Report ---
[address] [address] Test Date: 2019-03-06 Pat Name: Teena Cooper Department: 113 Room: 3B13 Gender: F Dispute Coordinator: : 1965 Requested By: [id number] Order Number: [id number] Reading MD: Benja Mao Measurements Intervals [place] Rate: 81 P: 50 [place]: 172 QRS: 12 QRSD: 102 T: 45 QT: 401 QTc: 439 Interpretive Statements SINUS RHYTHM LOW QRS VOLTAGE IN PRECORDIAL LEADS Electronically Signed On 03-07-2019 14:30:08 EDT by Benja Mao
[2019-03-07 15:09] VITALS: BP 113/63
--- NOTE | 2019-03-07 16:10 | Discharge Summary ---
- NOTES TO OUTPATIENT PROVIDER Notes to Outpatient Provider: Patient found to have lung nodules. Please follow up on outpatient basis. Date of Encounter: 03/07/19 Time of Encounter: 10:13 - Discharge Diagnosis (1) Pyelonephritis Priority: Primary Status: Acute (2) BMI 38.0-38.9,adult Priority: Secondary Status: Chronic (3) Lung nodules Priority: Secondary Status: Chronic (4) Asthma Priority: Secondary Status: Chronic Qualifiers: Asthma severity: mild Asthma persistence: intermittent Asthma complication type: uncomplicated Qualified Code(s): J45.20 - Mild intermittent asthma, uncomplicated (5) GERD (gastroesophageal reflux disease) Priority: Secondary Status: Chronic Qualifiers: Esophagitis presence: esophagitis presence not specified Qualified Code(s): K21.9 - Gastro-esophageal reflux disease without esophagitis (6) Hypothyroidism Priority: Secondary Status: Chronic Qualifiers: Hypothyroidism type: unspecified Qualified Code(s): E03.9 - Hypothyroidism, unspecified (7) Insulin dependent diabetes mellitus Priority: Secondary Status: Chronic (8) Major depression Priority: Secondary Status: Chronic Qualifiers: Qualified Code(s): F32.9 - Major depressive disorder, single episode, unspecified Hospital course: Ms. Cooper is a 53 year old female with IDDM, Migraine, Asthma, Recurrent UTIs and multipe psyche comorbidities who was admitted on account of ppyelonephrtis. At time of admission, patient reported low grade fever, chills, nausea and vomiting. She had CVA tenderness and CT evidence of left pyelonephritis. She was admitted for observation based on her hx od IDD and systemic symptoms. Her vitals and labs remained stable and she will be discharged on oral antbiotics to f/u with PCP. Discharge discussed with: patient, family - Time Spent with Patient Total time spent providing and/or coordinating discharge services: Time spent: Greater than 30 minutes (33minutes) - Discharge Medications Prescriptions: New Ciprofloxacin [Cipro] 500 mg PO BID 9 Days #18 tablet Continued Atorvastatin Calcium [Lipitor] 20 mg PO HS Estradiol [Estrace] 1 mg PO DAILY Insulin Degludec [Tresiba Flextouch U-100] 35 unit SQ HS Gabapentin [Neurontin] 800 mg PO TID #15 cloZAPine [Clozaril] 300 mg PO HS Levothyroxine [Synthroid] 125 mcg PO 0630 Biotin 5 mg PO DAILY Levonorgestrel [Mirena] 20 mcg IU Q24H Baclofen [Lioresal] 5 mg PO TID PRN PRN Reason: Muscle Spasm Ondansetron ODT [Zofran ODT] 4 mg SL Q8HR PRN #12 tab.rapdis PRN Reason: Nausea Ertugliflozin/Metformin [Segluromet 7.5-1,000 mg Tablet] 1 tab PO BID Famciclovir 125 mg PO BID Nabumetone [Relafen] 500 mg PO BID Lactobacillus [Culturelle] 1 cap PO BID Cetirizine HCl [Zyrtec] 10 mg PO DAILY Cholecalciferol (Vitamin D3) [Dialyvite Vitamin D] 5,000 units PO DAILY Fluticasone Propionate Nasal [Flonase] 2 spray NS DAILY Glimepiride [Amaryl] 1 mg PO QAM Liraglutide [Victoza 3-Jonatan] 1.8 mg SQ DAILY Mirtazapine [Remeron] 7.5 mg PO HS Montelukast [Singulair] 10 mg PO HS Multivit-Min/Iron/Folic/Lutein [Multivitamin Women 50 Plus Tab] 1 tab PO DAILY Nystatin POWDER [Nystop] 1 appl TP BID PRN PRN Reason: Rash Omeprazole [PriLOSEC] 20 mg PO DAILY Home Medications: Atorvastatin Calcium [Lipitor] 20 mg PO HS 11/17/16 [History] Estradiol [Estrace] 1 mg PO DAILY 11/17/16 [History] Insulin Degludec [Tresiba Flextouch U-100] 35 unit SQ HS 03/06/17 [History] Gabapentin [Neurontin] 800 mg PO TID #15 03/07/17 [Rx] Biotin 5 mg PO DAILY 09/11/17 [History] Levothyroxine [Synthroid] 125 mcg PO 0630 09/11/17 [History] cloZAPine [Clozaril] 300 mg PO HS 09/11/17 [History] Levonorgestrel [Mirena] 20 mcg IU Q24H 01/09/18 [History] Baclofen [Lioresal] 5 mg PO TID PRN 08/29/18 [History] Ondansetron ODT [Zofran ODT] 4 mg SL Q8HR PRN #12 tab.rapdis 01/09/19 [Rx] Ertugliflozin/Metformin [Segluromet 7.5-1,000 mg Tablet] 1 tab PO BID 03/06/19 [History] Famciclovir 125 mg PO BID 03/06/19 [History] Lactobacillus [Culturelle] 1 cap PO BID 03/06/19 [History] Nabumetone [Relafen] 500 mg PO BID 03/06/19 [History] Cetirizine HCl [Zyrtec] 10 mg PO DAILY 03/07/19 [History] Cholecalciferol (Vitamin D3) [Dialyvite Vitamin D] 5,000 units PO DAILY 03/07/19 [History] Ciprofloxacin [Cipro] 500 mg PO BID 9 Days #18 tablet 03/07/19 [Rx] Fluticasone Propionate Nasal [Flonase] 2 spray NS DAILY 03/07/19 [History] Glimepiride [Amaryl] 1 mg PO QAM 03/07/19 [History] Liraglutide [Victoza 3-Jonatan] 1.8 mg SQ DAILY 03/07/19 [History] Mirtazapine [Remeron] 7.5 mg PO HS 03/07/19 [History] Montelukast [Singulair] 10 mg PO HS 03/07/19 [History] Multivit-Min/Iron/Folic/Lutein [Multivitamin Women 50 Plus Tab] 1 tab PO DAILY 03/07/19 [History] Nystatin POWDER [Nystop] 1 appl TP BID PRN 03/07/19 [History] Omeprazole [PriLOSEC] 20 mg PO DAILY 03/07/19 [History] Allergies/Adverse Reactions: Allergy/AdvReac Type Severity Reaction Status Date / Time acetaminophen [From Percocet] Allergy See Verified 03/06/19 11:41 Comments cephalexin [From Keflex] Allergy Difficulty Verified 03/06/19 11:41 Breathing morphine Allergy Hives Verified 03/06/19 11:41 Tetanus Vaccines and Toxoid Allergy Redness of Verified 03/06/19 11:41 [Tetanus Vaccines & Toxoid] Skin atorvastatin [From Lipitor] AdvReac Nausea Verified 03/06/19 11:41 naproxen [From Naprosyn] AdvReac Gastrointestinal Verified 03/06/19 11:41 Upset oxycodone [From Percocet] AdvReac See Verified 03/06/19 11:41 Comments Date of admission: 03/06/19 14:11 Primary care physician: Natasha Beard - Constitutional Vitals: Temp Pulse Resp BP Pulse Ox 36.7 C 83 17 113/63 96 03/07/19 15:07 03/07/19 15:07 03/07/19 15:07 03/07/19 15:07 03/07/19 15:07 Exam: GENERAL: Not in distress. Alert and Oriented HEENT: EOMI, PERRLA MOUTH: Good oral hygiene NECK:No JVD, No lymph nodes. CHEST AND LUNGS: Normal breath sounds, no wheezes or crackles HEART: S1 and S2 normal, no murmurs ABDOMEN: soft, nontender, light touch maneuver does not induce CVA tenderness anymore. GENITOURINARY: SKIN: Normal color, no rashes, no lesions EXTREMITIES: No deformity, no edema, no tenderness, no joint swelling or clubbing NEUROLOGICAL: Normal cognition, normal motor and sensory exam. - Patient Status Disposition: Home, Self-Care Condition: Good Overall status at discharge: patient is progressing back to baseline - Discharge Instructions Instructions: Urinary Tract Infection in Women (DC) Follow Up With: Natasha Beard [Primary Care Provider] - 03/18/19 2:20 pm - Diet and Activity Activity: increase activity as tolerated Diet: advance to your usual diet, diabetic diet
== END 2019-03-07 16:52 | disposition home or self-care (01) ==
LOC: 3BNU 11:21 → EMEROOARM 11:21 → SUATTDRO 14:11 → 3BNU 15:10
PROVIDERS: ADMIT Student in an Organized Health Care Education/Training Program; ATTEND Internal Medicine

== ENCOUNTER 2019-04-03 11:45 | Observation (INO) ==
[2019-04-03] MEDS ORDERED: 0.9 % Sodium Chloride 1,000 ML IVC ONE ×2 (12:09→12:41)
[2019-04-03] MEDS ORDERED: Ipratropium/Albuterol Neb 3 ML IH ONE (12:11)
[2019-04-03 12:29] LABS: Basophils % 0.5 %; Eosinophils # 0.1 K/mcL (0.0-0.6); Eosinophils % 1.2 %; Hematocrit 44.9 % (35.3-44.9); Hemoglobin 13.4 g/dL (11.5-15.4); Immature Granulocytes % 0.2 % (0-4); Lymphocytes # 1.5 K/mcL (0.6-4.6); Lymphocytes % 17.8 %; Mean Corpuscular HGB Conc 29.8 g/dL (31.6-35.5); Mean Corpuscular Hemoglobin 26.4 pg (28.0-33.3); Mean Corpuscular Volume 88.6 fL (83.0-100.0); Mean Platelet Volume 10.1 fL (9.4-12.4); Monocytes # 0.4 K/mcL (0.0-1.3); Monocytes % 4.9 %; Neutrophils # 6.3 K/mcL (1.6-8.9); Platelet Count 267 K/mcL (140-400); Red Blood Count 5.07 M/mcL (3.82-4.97); Red Cell Distribution Width 13.9 % (11.5-14.5); Segmented Neutrophils % 75.4 %; White Blood Count 8.3 K/mcL (4.3-11.1)
[2019-04-03 12:40] LABS: Bilirubin,Urine Negative (Negative); Blood,Urine Negative (Negative); Clarity,Urine Clear (Clear); Color,Urine Yellow (Yellow); Glucose,Urine (UA) >=1000 mg/dL (Normal); Ketones,Urine Negative (Negative); Leukocyte Esterase,Urine Small (Negative); Nitrite,Urine Negative (Negative); Protein,Urine Negative (Neg-Trace); Urobilinogen,Urine Normal (Normal)
[2019-04-03 12:42] LABS: Bacteria,Urine Moderate per hpf (None-Few); Hyaline Casts,Urine None Seen per lpf (None-Few); RBC,Urine 0-3 per hpf (0-3); Squamous Epithelial Cell,Urine Many per lpf (None-Few); WBC,Urine 15-30 per hpf (0-3)
[2019-04-03 12:48] LABS: Alanine Aminotransferase 18 Units/L (7-52); Albumin 4.4 g/dL (3.5-5.7); Albumin/Globulin Ratio 1.8 (1.1-2.2); Alkaline Phosphatase 86 Units/L (34-104); Aspartate Amino Transferase 14 Units/L (13-39); BUN/Creatinine Ratio 17 (6-26); Bilirubin,Direct 0.1 mg/dL (0.0-0.2); Bilirubin,Indirect 0.3 mg/dL (0.0-1.2); Bilirubin,Total 0.4 mg/dL (0.3-1.0); Blood Urea Nitrogen 12 mg/dL (6-20); Calcium 10.2 mg/dL (8.6-10.3); Carbon Dioxide 21 mEq/L (23-29); Chloride 105 mEq/L (98-107); Globulin 2.4 g/dL (2.4-3.5); Glucose 203 mg/dL (70-105); Magnesium 1.9 mg/dL (1.6-2.6); Osmolality,Calculated 294 (280-300); Phosphorous 4.2 mg/dL (2.7-4.5); Potassium 3.7 mEq/L (3.5-5.1); Sodium 139 mEq/L (136-145); Total Protein 6.8 g/dL (6.4-8.9); Troponin I < 0.03 ng/mL (< 0.04); eGFR For African Americans > 60 (> 60); eGFR For Non-African Americans > 60 (> 60)
[2019-04-03] MEDS ORDERED: Isovue-370 500 ML BOTTLE IVP ONE (12:59)
[2019-04-03 13:23] LABS: VBG HCO3 23 mEq/L (21-27); VBG PCO2 38 mmHg (41-51); VBG PO2 158 mmHg (25-50)
[2019-04-03] MEDS ORDERED: Piperacillin/Tazobactam 3.375 GM in Water for inj. (sterile) 20 ML IVP ONE (13:49)
[2019-04-03] MEDS ORDERED: Nystatin POWDER 30 GM BOTTLE TP PRN (15:52)
[2019-04-03] MEDS ORDERED: D5% in Water 1,000 ML IVC PRN (16:00)
[2019-04-03] MEDS ORDERED: *HR* Dextrose 50 % in Water (Syg) 50 ML SYRINGE IVP PRN (16:00)
[2019-04-03] MEDS ORDERED: Dextrose Gel 15 GM/37.5 ML TUBE PO PRN ×2 (16:00)
[2019-04-03] MEDS ORDERED: Ipratropium/Albuterol Neb 3 ML IH PRN (16:02)
[2019-04-03 16:13] LABS: Estimated Average Glucose 148 mg/dl
[2019-04-03] MEDS: Insulin LISPRO 300 UNITS/3 ML VIAL SQ SCH (18:25)
[2019-04-03] MEDS: Baclofen 10 MG TABLET PO PRN (20:19)
[2019-04-03] MEDS: Ampicillin 2 GM in 0.9 % Sodium Chloride Mini Bag 100 ML IVPB SCH (20:20)
[2019-04-03] MEDS: Gabapentin 400 MG CAPSULE PO SCH (20:20)
[2019-04-03] MEDS: *HR* Heparin 5,000 UNIT/ML VIAL SQ SCH (20:21)
[2019-04-03] MEDS: Lactobacillus 1 EACH CAP.SPRINK PO SCH (20:21)
[2019-04-03] MEDS ORDERED: Insulin DETEMIR 100 UNIT/ML X5UNITS SQ SCH (21:00)
[2019-04-03] MEDS ORDERED: Insulin LISPRO 300 UNITS/3 ML VIAL SQ SCH (21:00)
[2019-04-03] MEDS ORDERED: cloZAPine 100 MG TABLET PO SCH (21:00)
[2019-04-03] MEDS ORDERED: Mirtazapine 15 MG TABLET PO SCH (21:00)
[2019-04-03] MEDS ORDERED: FAMCICLOVIR 125 MG PO SCH (21:00)
[2019-04-04] MEDS: Ampicillin 2 GM in 0.9 % Sodium Chloride Mini Bag 100 ML IVPB SCH ×2 (01:29→06:35)
[2019-04-04] MEDS: *HR* Heparin 5,000 UNIT/ML VIAL SQ SCH (06:35)
[2019-04-04] MEDS: Baclofen 10 MG TABLET PO PRN (06:36)
[2019-04-04] MEDS: Insulin LISPRO 300 UNITS/3 ML VIAL SQ SCH (07:43)
[2019-04-04 07:44] VITALS: BP 127/80
[2019-04-04] MEDS: Lactobacillus 1 EACH CAP.SPRINK PO SCH (07:53)
[2019-04-04] MEDS: Gabapentin 400 MG CAPSULE PO SCH (07:53)
[2019-04-04] MEDS ORDERED: Multivit/Ca/Min/Fe/FA 1 TAB TABLET PO SCH (09:00)
[2019-04-04] MEDS ORDERED: Fluticasone Propionate Nasal 50 MCG/SPRAY BOTTLE NS SCH (09:00)
[2019-04-04] MEDS ORDERED: Cholecalciferol (D-3) 1,000 UNIT (25MCG) TABLET PO SCH (09:00)
[2019-04-04] MEDS ORDERED: Loratadine 10 MG TABLET PO SCH (09:00)
== END 2019-04-04 12:16 | disposition home or self-care (01) ==
LOC: EMEROOARM 11:45 → 3ANU 11:45
PROVIDERS: ADMIT Internal Medicine; ATTEND Internal Medicine

== ENCOUNTER 2021-05-26 11:51 | Inpatient (IN) ==
[2021-05-26] MEDS ORDERED: Isovue-370 500 ML BOTTLE IVP ONE (12:49)
[2021-05-26 13:20] LABS: Basophils % 0.2 %; Eosinophils % 0.1 %; Hemoglobin 11.7 g/dL (11.5-15.4); Immature Granulocytes % 0.5 % (0-4); Lymphocytes # 0.3 K/mcL (0.6-4.6); Lymphocytes % 3.9 %; Mean Corpuscular HGB Conc 31.6 g/dL (31.6-35.5); Mean Corpuscular Hemoglobin 26.1 pg (28.0-33.3); Mean Corpuscular Volume 82.4 fL (83.0-100.0); Mean Platelet Volume 10.4 fL (9.4-12.4); Monocytes # 0.4 K/mcL (0.0-1.3); Monocytes % 4.3 %; Neutrophils # 7.8 K/mcL (1.6-8.9); Platelet Count 226 K/mcL (140-400); Red Blood Count 4.49 M/mcL (3.82-4.97); Red Cell Distribution Width 14.8 % (11.5-14.5); White Blood Count 8.6 K/mcL (4.3-11.1)
[2021-05-26 14:06] LABS: BUN/Creatinine Ratio 18 (6-26); Blood Urea Nitrogen 14 mg/dL (6-20); Calcium 9.2 mg/dL (8.6-10.3); Carbon Dioxide 20 mEq/L (23-29); Chloride 105 mEq/L (98-107); Glucose 88 mg/dL (70-105); Osmolality,Calculated 286 (280-300); Potassium 3.8 mEq/L (3.5-5.1); Sodium 138 mEq/L (136-145); Troponin I 0.03 ng/mL (< 0.04); eGFR For African Americans > 60 (> 60); eGFR For Non-African Americans > 60 (> 60)
[2021-05-26] MEDS ORDERED: Naloxone 0.4 MG/ML INJ IVP PRN (15:51)
[2021-05-26] MEDS ORDERED: Ondansetron 4 MG/2 ML VIAL IVP PRN (15:51)
[2021-05-26] MEDS ORDERED: Albuterol 2.5 MG/3 ML NEBULIZER IH PRN (15:57)
[2021-05-26] MEDS ORDERED: Ringers Solution, Lactated 1,000 ML IVC SCH (16:00)
[2021-05-26] MEDS ORDERED: D5% in Water 1,000 ML IVC PRN (16:26)
[2021-05-26] MEDS ORDERED: Dextrose Gel 15 GM/37.5 ML TUBE PO PRN ×2 (16:26)
[2021-05-26] MEDS ORDERED: *HR* Dextrose 50 % in Water (Syg) 50 ML SYRINGE IVP PRN (16:26)
[2021-05-26 16:52] LABS: Alanine Aminotransferase 11 Units/L (7-52); Albumin 3.5 g/dL (3.5-5.7); Albumin/Globulin Ratio 1.1 (1.1-2.2); Alkaline Phosphatase 83 Units/L (34-104); Aspartate Amino Transferase 35 Units/L (13-39); Bilirubin,Direct 0.3 mg/dL (0.0-0.2); Bilirubin,Indirect 0.5 mg/dL (0.0-1.0); Bilirubin,Total 0.8 mg/dL (0.3-1.0); C-Reactive Protein 257 mg/L (Less than 10); Globulin 3.2 g/dL (2.4-3.5); Total Protein 6.7 g/dL (6.4-8.9)
[2021-05-26] MEDS: *HR* Heparin 5,000 UNIT/ML VIAL SQ SCH (17:57)
[2021-05-26] MEDS: Insulin LISPRO 300 UNITS/3 ML VIAL SUBQ SCH (18:18)
[2021-05-27] MEDS: *HR* Heparin 5,000 UNIT/ML VIAL SQ SCH ×2 (04:41→17:51)
[2021-05-27] MEDS ORDERED: Remdesivir 200 MG in 0.9 % Sodium Chloride 100 ML IVPB ONE ×3 (07:46→21:00)
[2021-05-27 07:55] LABS: Hematocrit 34.3 % (35.3-44.9); Hemoglobin 10.8 g/dL (11.5-15.4); Immature Granulocytes % 0.6 % (0-4); Lymphocytes # 0.5 K/mcL (0.6-4.6); Lymphocytes % 10.4 %; Mean Corpuscular HGB Conc 31.5 g/dL (31.6-35.5); Mean Corpuscular Volume 82.7 fL (83.0-100.0); Mean Platelet Volume 10.6 fL (9.4-12.4); Monocytes # 0.4 K/mcL (0.0-1.3); Monocytes % 8.2 %; Neutrophils # 4.1 K/mcL (1.6-8.9); Platelet Count 234 K/mcL (140-400); Red Blood Count 4.15 M/mcL (3.82-4.97); Red Cell Distribution Width 14.8 % (11.5-14.5); Segmented Neutrophils % 80.8 %; White Blood Count 5.1 K/mcL (4.3-11.1)
[2021-05-27 08:11] LABS: INR 1.4; Prothrombin Time 15.1 Seconds (9.4-12.1)
[2021-05-27 08:13] LABS: Activated Partial Thrombo Time 31.8 Seconds (26.0-36.0)
[2021-05-27 08:22] LABS: BUN/Creatinine Ratio 18 (6-26); Blood Urea Nitrogen 12 mg/dL (6-20); Calcium 9.1 mg/dL (8.6-10.3); Carbon Dioxide 23 mEq/L (23-29); Chloride 104 mEq/L (98-107); Glucose 122 mg/dL (70-105); Magnesium 1.7 mg/dL (1.6-2.6); Osmolality,Calculated 287 (280-300); Potassium 4.3 mEq/L (3.5-5.1); Sodium 138 mEq/L (136-145); eGFR For African Americans > 60 (> 60); eGFR For Non-African Americans > 60 (> 60)
[2021-05-27] MEDS: Insulin LISPRO 300 UNITS/3 ML VIAL SUBQ SCH ×3 (09:06→17:53)
[2021-05-27] MEDS ORDERED: Fluticasone Propionate Nasal 50 MCG/SPRAY BOTTLE NS PRN (13:48)
[2021-05-27] MEDS: Acetaminophen 325 MG TABLET PO PRN (17:50)
[2021-05-27] MEDS: Pregabalin 75 MG CAPSULE PO SCH (21:39)
[2021-05-27] MEDS: Lactobacillus 1 EACH CAP.SPRINK PO SCH (21:39)
[2021-05-27] MEDS: cloZAPine 100 MG TABLET PO SCH (21:39)
[2021-05-27] MEDS: traZODone 50 MG TABLET PO SCH (21:40)
[2021-05-27] MEDS: hydrOXYzine pamoate 25 MG CAPSULE PO SCH (21:40)
[2021-05-28 06:24] LABS: Albumin 3.2 g/dL (3.5-5.7); Albumin/Globulin Ratio 1.2 (1.1-2.2); Bilirubin,Direct 0.2 mg/dL (0.0-0.2); Bilirubin,Indirect 0.4 mg/dL (0.0-1.0); Bilirubin,Total 0.6 mg/dL (0.3-1.0); Globulin 2.6 g/dL (2.4-3.5); Total Protein 5.8 g/dL (6.4-8.9)
[2021-05-28] MEDS: *HR* Heparin 5,000 UNIT/ML VIAL SQ SCH ×2 (06:32→17:42)
[2021-05-28] MEDS ORDERED: Remdesivir 100 MG in 0.9 % Sodium Chloride 100 ML IVPB SCH (08:00)
[2021-05-28] MEDS: Insulin LISPRO 300 UNITS/3 ML VIAL SUBQ SCH ×3 (08:53→17:41)
[2021-05-28] MEDS: Pregabalin 75 MG CAPSULE PO SCH ×2 (08:59→20:30)
[2021-05-28] MEDS: Loratadine 10 MG TABLET PO SCH (09:00)
[2021-05-28] MEDS: valACYclovir 500 MG TABLET PO SCH (09:00)
[2021-05-28] MEDS: hydrOXYzine pamoate 25 MG CAPSULE PO SCH ×2 (09:00→20:30)
[2021-05-28] MEDS: PARoxetine 20 MG TABLET PO SCH (09:00)
[2021-05-28] MEDS: Lactobacillus 1 EACH CAP.SPRINK PO SCH ×2 (09:00→20:31)
[2021-05-28] MEDS: Remdesivir 100 MG in 0.9 % Sodium Chloride 100 ML IVPB SCH (20:29)
[2021-05-28] MEDS: Acetaminophen 325 MG TABLET PO PRN (20:30)
[2021-05-28] MEDS: cloZAPine 100 MG TABLET PO SCH (20:30)
[2021-05-28] MEDS: traZODone 50 MG TABLET PO SCH (20:31)
[2021-05-29 02:25] LABS: Basophils % 0.2 %; Hematocrit 34.2 % (35.3-44.9); Hemoglobin 10.4 g/dL (11.5-15.4); Immature Granulocytes % 0.9 % (0-4); Lymphocytes # 0.7 K/mcL (0.6-4.6); Lymphocytes % 13.3 %; Mean Corpuscular HGB Conc 30.4 g/dL (31.6-35.5); Mean Corpuscular Hemoglobin 25.4 pg (28.0-33.3); Mean Corpuscular Volume 83.6 fL (83.0-100.0); Mean Platelet Volume 10.4 fL (9.4-12.4); Monocytes # 0.5 K/mcL (0.0-1.3); Monocytes % 8.3 %; Neutrophils # 4.2 K/mcL (1.6-8.9); Platelet Count 246 K/mcL (140-400); Red Blood Count 4.09 M/mcL (3.82-4.97); Red Cell Distribution Width 14.7 % (11.5-14.5); Segmented Neutrophils % 77.3 %; White Blood Count 5.4 K/mcL (4.3-11.1)
[2021-05-29 02:52] LABS: Albumin 3.2 g/dL (3.5-5.7); Albumin/Globulin Ratio 1.3 (1.1-2.2); Bilirubin,Direct 0.1 mg/dL (0.0-0.2); Bilirubin,Indirect 0.4 mg/dL (0.0-1.0); Bilirubin,Total 0.5 mg/dL (0.3-1.0); Globulin 2.5 g/dL (2.4-3.5); Total Protein 5.7 g/dL (6.4-8.9)
[2021-05-29 03:03] LABS: BUN/Creatinine Ratio 31 (6-26); Blood Urea Nitrogen 16 mg/dL (6-20); Calcium 8.9 mg/dL (8.6-10.3); Carbon Dioxide 18 mEq/L (23-29); Chloride 109 mEq/L (98-107); Glucose 101 mg/dL (70-105); Lactate Dehydrogenase 244 Units/L (140-271); Magnesium 1.7 mg/dL (1.6-2.6); Osmolality,Calculated 291 (280-300); Phosphorous 3.8 mg/dL (2.7-4.5); Potassium 4.1 mEq/L (3.5-5.1); Sodium 140 mEq/L (136-145); eGFR For African Americans > 60 (> 60); eGFR For Non-African Americans > 60 (> 60)
[2021-05-29 04:41] LABS: Ferritin 155 ng/mL (10-120)
[2021-05-29] MEDS: *HR* Heparin 5,000 UNIT/ML VIAL SQ SCH ×2 (05:05→20:54)
[2021-05-29] MEDS: Insulin LISPRO 300 UNITS/3 ML VIAL SUBQ SCH ×3 (08:25→17:22)
[2021-05-29] MEDS: Lactobacillus 1 EACH CAP.SPRINK PO SCH ×2 (09:50→20:55)
[2021-05-29] MEDS: hydrOXYzine pamoate 25 MG CAPSULE PO SCH ×2 (09:50→20:55)
[2021-05-29] MEDS: Pregabalin 75 MG CAPSULE PO SCH ×2 (09:50→20:55)
[2021-05-29] MEDS: Loratadine 10 MG TABLET PO SCH (09:50)
[2021-05-29] MEDS: valACYclovir 500 MG TABLET PO SCH (09:50)
[2021-05-29] MEDS: PARoxetine 20 MG TABLET PO SCH (09:51)
[2021-05-29] MEDS: Remdesivir 100 MG in 0.9 % Sodium Chloride 100 ML IVPB SCH (20:55)
[2021-05-29] MEDS: traZODone 50 MG TABLET PO SCH (20:55)
[2021-05-29] MEDS: cloZAPine 100 MG TABLET PO SCH (20:55)
[2021-05-30] MEDS: *HR* Heparin 5,000 UNIT/ML VIAL SQ SCH ×2 (06:47→16:48)
[2021-05-30 06:54] LABS: Albumin 3.3 g/dL (3.5-5.7); Albumin/Globulin Ratio 1.4 (1.1-2.2); Bilirubin,Direct 0.1 mg/dL (0.0-0.2); Bilirubin,Indirect 0.5 mg/dL (0.0-1.0); Bilirubin,Total 0.6 mg/dL (0.3-1.0); Globulin 2.4 g/dL (2.4-3.5); Total Protein 5.7 g/dL (6.4-8.9)
[2021-05-30] MEDS: Insulin LISPRO 300 UNITS/3 ML VIAL SUBQ SCH ×3 (09:45→16:49)
[2021-05-30] MEDS: hydrOXYzine pamoate 25 MG CAPSULE PO SCH ×2 (09:53→21:08)
[2021-05-30] MEDS: Lactobacillus 1 EACH CAP.SPRINK PO SCH ×2 (09:53→21:09)
[2021-05-30] MEDS: valACYclovir 500 MG TABLET PO SCH (09:53)
[2021-05-30] MEDS: PARoxetine 20 MG TABLET PO SCH (09:53)
[2021-05-30] MEDS: Loratadine 10 MG TABLET PO SCH (09:53)
[2021-05-30] MEDS: Pregabalin 75 MG CAPSULE PO SCH ×2 (09:53→21:08)
[2021-05-30] MEDS: cloZAPine 100 MG TABLET PO SCH (21:08)
[2021-05-30] MEDS: Remdesivir 100 MG in 0.9 % Sodium Chloride 100 ML IVPB SCH (21:08)
[2021-05-30] MEDS: traZODone 50 MG TABLET PO SCH (21:09)
[2021-05-31] MEDS: *HR* Heparin 5,000 UNIT/ML VIAL SQ SCH ×2 (05:02→16:59)
[2021-05-31 08:00] LABS: Basophils % 0.2 %; Eosinophils % 0.2 %; Hematocrit 36.7 % (35.3-44.9); Hemoglobin 11.3 g/dL (11.5-15.4); Immature Granulocytes % 0.7 % (0-4); Lymphocytes # 1.2 K/mcL (0.6-4.6); Lymphocytes % 20.8 %; Mean Corpuscular HGB Conc 30.8 g/dL (31.6-35.5); Mean Corpuscular Volume 84.4 fL (83.0-100.0); Mean Platelet Volume 10.7 fL (9.4-12.4); Monocytes # 0.5 K/mcL (0.0-1.3); Monocytes % 8.8 %; Neutrophils # 3.9 K/mcL (1.6-8.9); Platelet Count 257 K/mcL (140-400); Red Blood Count 4.35 M/mcL (3.82-4.97); Red Cell Distribution Width 14.6 % (11.5-14.5); Segmented Neutrophils % 69.3 %; White Blood Count 5.6 K/mcL (4.3-11.1)
[2021-05-31 08:09] LABS: BUN/Creatinine Ratio 31 (6-26); Blood Urea Nitrogen 15 mg/dL (6-20); Carbon Dioxide 25 mEq/L (23-29); Chloride 108 mEq/L (98-107); Glucose 97 mg/dL (70-105); Osmolality,Calculated 293 (280-300); Phosphorous 3.4 mg/dL (2.7-4.5); Potassium 3.6 mEq/L (3.5-5.1); Sodium 141 mEq/L (136-145); eGFR For African Americans > 60 (> 60); eGFR For Non-African Americans > 60 (> 60)
[2021-05-31 08:10] LABS: Albumin 3.2 g/dL (3.5-5.7); Albumin/Globulin Ratio 1.5 (1.1-2.2); Bilirubin,Direct 0.2 mg/dL (0.0-0.2); Bilirubin,Indirect 0.3 mg/dL (0.0-1.0); Bilirubin,Total 0.5 mg/dL (0.3-1.0); Globulin 2.2 g/dL (2.4-3.5); Total Protein 5.4 g/dL (6.4-8.9)
[2021-05-31 08:31] LABS: Magnesium 1.7 mg/dL (1.6-2.6)
[2021-05-31] MEDS: Insulin LISPRO 300 UNITS/3 ML VIAL SUBQ SCH ×3 (08:56→16:59)
[2021-05-31] MEDS: valACYclovir 500 MG TABLET PO SCH (09:54)
[2021-05-31] MEDS: PARoxetine 20 MG TABLET PO SCH (09:54)
[2021-05-31] MEDS: Lactobacillus 1 EACH CAP.SPRINK PO SCH ×2 (09:54→21:29)
[2021-05-31] MEDS: hydrOXYzine pamoate 25 MG CAPSULE PO SCH ×2 (09:55→21:30)
[2021-05-31] MEDS: Pregabalin 75 MG CAPSULE PO SCH ×2 (09:55→21:30)
[2021-05-31] MEDS: Loratadine 10 MG TABLET PO SCH (09:55)
[2021-05-31] MEDS: cloZAPine 100 MG TABLET PO SCH (21:29)
[2021-05-31] MEDS: traZODone 50 MG TABLET PO SCH (21:30)
[2021-05-31] MEDS: Remdesivir 100 MG in 0.9 % Sodium Chloride 100 ML IVPB SCH (21:31)
[2021-06-01] MEDS: *HR* Heparin 5,000 UNIT/ML VIAL SQ SCH ×2 (06:17→17:10)
[2021-06-01 06:31] LABS: Basophils % 0.3 %; Eosinophils % 0.2 %; Hematocrit 37.1 % (35.3-44.9); Hemoglobin 11.5 g/dL (11.5-15.4); Immature Granulocytes % 1.3 % (0-4); Lymphocytes # 1.5 K/mcL (0.6-4.6); Lymphocytes % 22.8 %; Mean Corpuscular Hemoglobin 25.9 pg (28.0-33.3); Mean Corpuscular Volume 83.6 fL (83.0-100.0); Mean Platelet Volume 10.3 fL (9.4-12.4); Monocytes # 0.6 K/mcL (0.0-1.3); Monocytes % 8.8 %; Neutrophils # 4.3 K/mcL (1.6-8.9); Platelet Count 238 K/mcL (140-400); Red Blood Count 4.44 M/mcL (3.82-4.97); Red Cell Distribution Width 14.5 % (11.5-14.5); Segmented Neutrophils % 66.6 %; White Blood Count 6.4 K/mcL (4.3-11.1)
[2021-06-01 06:59] LABS: Albumin 3.3 g/dL (3.5-5.7); Albumin/Globulin Ratio 1.7 (1.1-2.2); Bilirubin,Direct 0.1 mg/dL (0.0-0.2); Bilirubin,Indirect 0.3 mg/dL (0.0-1.0); Bilirubin,Total 0.4 mg/dL (0.3-1.0); Total Protein 5.3 g/dL (6.4-8.9)
[2021-06-01 07:00] LABS: BUN/Creatinine Ratio 30 (6-26); Blood Urea Nitrogen 16 mg/dL (6-20); Calcium 9.2 mg/dL (8.6-10.3); Carbon Dioxide 23 mEq/L (23-29); Chloride 110 mEq/L (98-107); Glucose 128 mg/dL (70-105); Magnesium 1.8 mg/dL (1.6-2.6); Osmolality,Calculated 299 (280-300); Phosphorous 3.2 mg/dL (2.7-4.5); Sodium 143 mEq/L (136-145); eGFR For African Americans > 60 (> 60); eGFR For Non-African Americans > 60 (> 60)
[2021-06-01] MEDS: Insulin LISPRO 300 UNITS/3 ML VIAL SUBQ SCH ×3 (08:03→17:09)
[2021-06-01] MEDS ORDERED: *HR* LORazepam 2 MG/ML VIAL ONE (08:26)
[2021-06-01] MEDS ORDERED: Furosemide 20 MG/2 ML VIAL IVP ONE (08:31)
[2021-06-01] MEDS ORDERED: *HR* LORazepam 2 MG/ML VIAL IVP ONE (08:31)
[2021-06-01] MEDS ORDERED: Isovue-370 500 ML BOTTLE IVP ONE (08:35)
[2021-06-01 08:42] LABS: ABG Base Excess -2 mEq/L (-2 to 3); ABG HCO3 25 mEq/L (21-27); ABG Oxygen Saturation 74 % (95-98); ABG PCO2 47 mmHg (35-45); ABG PH 7.33 pH Units (7.32-7.45); ABG PO2 42 mmHg (85-104); ABG TCO2 26 mEq/L (20-26)
[2021-06-01] MEDS ORDERED: Dexamethasone Sodium Phos/PF 10 MG/ML VIAL IVP SCH (09:00)
[2021-06-01] MEDS ORDERED: Albuterol 2.5 MG/3 ML NEBULIZER IH PRN (10:11)
[2021-06-01] MEDS ORDERED: Fluticasone Propionate Nasal 50 MCG/SPRAY BOTTLE NS PRN (10:11)
[2021-06-01] MEDS ORDERED: Ondansetron 4 MG/2 ML VIAL IVP PRN (10:11)
[2021-06-01] MEDS ORDERED: D5% in Water 1,000 ML IVC PRN (10:11)
[2021-06-01] MEDS ORDERED: Dextrose Gel 15 GM/37.5 ML TUBE PO PRN ×2 (10:11)
[2021-06-01] MEDS ORDERED: Naloxone 0.4 MG/ML INJ IVP PRN (10:11)
[2021-06-01] MEDS ORDERED: *HR* Dextrose 50 % in Water (Syg) 50 ML SYRINGE IVP PRN (10:11)
[2021-06-01] MEDS ORDERED: Acetaminophen 325 MG TABLET PO PRN (10:11)
[2021-06-01] MEDS: Loratadine 10 MG TABLET PO SCH (10:12)
[2021-06-01] MEDS: Lactobacillus 1 EACH CAP.SPRINK PO SCH (10:12)
[2021-06-01 10:26] LABS: Fibrinogen 416 mg/dL (169-393)
[2021-06-01 10:27] LABS: D-Dimer 3010 ng/mLFEU (0-500)
[2021-06-01 10:38] LABS: Troponin I < 0.03 ng/mL (< 0.04)
[2021-06-01 10:50] LABS: C-Reactive Protein 19 mg/L (Less than 10)
[2021-06-01] MEDS ORDERED: levoFLOXacin 750 MG/150 ML 750 MG/150 ML BAG IVPB SCH (11:30)
[2021-06-01] MEDS: Pregabalin 75 MG CAPSULE PO SCH ×3 (12:10→20:38)
[2021-06-01 15:57] LABS: Bacteria,Urine Few per hpf (None-Few); Bilirubin,Urine Negative (Negative); Blood,Urine Negative (Negative); Clarity,Urine Turbid (Clear); Color,Urine Light-Yellow (Yellow); Glucose,Urine (UA) 150 mg/dL (Normal); Ketones,Urine Negative (Negative); Leukocyte Esterase,Urine Large (Negative); Mucus,Urine Few per lpf (None-Few); Nitrite,Urine Negative (Negative); Protein,Urine Negative (Neg-Trace); RBC,Urine 0-3 per hpf (0-3); Specific Gravity,Urine 1.024 (1.010-1.025); Squamous Epithelial Cell,Urine Few per hpf (None-Few); Urobilinogen,Urine Normal (Normal); WBC,Urine TNTC per hpf (0-3)
[2021-06-01] MEDS: PARoxetine 20 MG TABLET PO SCH (16:49)
[2021-06-01] MEDS: hydrOXYzine pamoate 25 MG CAPSULE PO SCH (16:50)
[2021-06-01] MEDS: valACYclovir 500 MG TABLET PO SCH (16:50)
[2021-06-01] MEDS ORDERED: Lactobacillus 1 EACH CAP.SPRINK PO SCH (21:00)
[2021-06-01] MEDS ORDERED: hydrOXYzine pamoate 25 MG CAPSULE PO SCH (21:00)
[2021-06-01] MEDS ORDERED: Pregabalin 75 MG CAPSULE PO SCH (21:00)
[2021-06-01] MEDS ORDERED: Insulin LISPRO 300 UNITS/3 ML VIAL SUBQ SCH (21:00)
[2021-06-01] MEDS ORDERED: traZODone 50 MG TABLET PO SCH (21:00)
[2021-06-01] MEDS ORDERED: cloZAPine 100 MG TABLET PO SCH (21:00)
[2021-06-02 05:10] LABS: Basophils % 0.2 %; Eosinophils % 0.3 %; Hematocrit 36.4 % (35.3-44.9); Hemoglobin 11.1 g/dL (11.5-15.4); Immature Granulocytes % 1.5 % (0-4); Lymphocytes # 1.4 K/mcL (0.6-4.6); Lymphocytes % 20.8 %; Mean Corpuscular HGB Conc 30.5 g/dL (31.6-35.5); Mean Corpuscular Hemoglobin 25.6 pg (28.0-33.3); Mean Corpuscular Volume 83.9 fL (83.0-100.0); Mean Platelet Volume 10.8 fL (9.4-12.4); Monocytes # 0.6 K/mcL (0.0-1.3); Monocytes % 9.2 %; Neutrophils # 4.4 K/mcL (1.6-8.9); Platelet Count 233 K/mcL (140-400); Red Blood Count 4.34 M/mcL (3.82-4.97); Red Cell Distribution Width 14.4 % (11.5-14.5); White Blood Count 6.5 K/mcL (4.3-11.1)
[2021-06-02] MEDS: *HR* Heparin 5,000 UNIT/ML VIAL SQ SCH ×2 (05:18→17:44)
[2021-06-02 05:25] LABS: BUN/Creatinine Ratio 29 (6-26); Blood Urea Nitrogen 15 mg/dL (6-20); Calcium 8.9 mg/dL (8.6-10.3); Carbon Dioxide 27 mEq/L (23-29); Chloride 106 mEq/L (98-107); Glucose 150 mg/dL (70-105); Magnesium 1.8 mg/dL (1.6-2.6); Osmolality,Calculated 294 (280-300); Phosphorous 2.9 mg/dL (2.7-4.5); Potassium 3.7 mEq/L (3.5-5.1); Sodium 140 mEq/L (136-145); eGFR For African Americans > 60 (> 60); eGFR For Non-African Americans > 60 (> 60)
[2021-06-02] MEDS ORDERED: D5% in Water 1,000 ML IVC PRN (07:07)
[2021-06-02] MEDS ORDERED: Naloxone 0.4 MG/ML INJ IVP PRN (07:07)
[2021-06-02] MEDS ORDERED: *HR* Dextrose 50 % in Water (Syg) 50 ML SYRINGE IVP PRN (07:07)
[2021-06-02] MEDS ORDERED: Fluticasone Propionate Nasal 50 MCG/SPRAY BOTTLE NS PRN (07:07)
[2021-06-02] MEDS ORDERED: Albuterol 2.5 MG/3 ML NEBULIZER IH PRN (07:07)
[2021-06-02] MEDS ORDERED: Dextrose Gel 15 GM/37.5 ML TUBE PO PRN ×2 (07:07)
[2021-06-02] MEDS ORDERED: Ondansetron 4 MG/2 ML VIAL IVP PRN (07:07)
[2021-06-02] MEDS: Insulin LISPRO 300 UNITS/3 ML VIAL SUBQ SCH ×3 (07:36→17:43)
[2021-06-02] MEDS: valACYclovir 500 MG TABLET PO SCH (07:37)
[2021-06-02] MEDS: Lactobacillus 1 EACH CAP.SPRINK PO SCH ×2 (07:37→19:48)
[2021-06-02] MEDS: levoFLOXacin 750 MG/150 ML 750 MG/150 ML BAG IVPB SCH (07:38)
[2021-06-02] MEDS: Loratadine 10 MG TABLET PO SCH (07:38)
[2021-06-02] MEDS: Pregabalin 75 MG CAPSULE PO SCH ×2 (07:38→19:47)
[2021-06-02] MEDS: PARoxetine 20 MG TABLET PO SCH (07:39)
[2021-06-02] MEDS: hydrOXYzine pamoate 25 MG CAPSULE PO SCH ×2 (07:39→19:48)
[2021-06-02] MEDS ORDERED: valACYclovir 500 MG TABLET PO SCH (09:00)
[2021-06-02] MEDS ORDERED: Loratadine 10 MG TABLET PO SCH (09:00)
[2021-06-02] MEDS ORDERED: PARoxetine 20 MG TABLET PO SCH (09:00)
[2021-06-02] MEDS: traZODone 50 MG TABLET PO SCH (19:46)
[2021-06-02] MEDS: cloZAPine 100 MG TABLET PO SCH (19:48)
[2021-06-02] MEDS: Acetaminophen 325 MG TABLET PO PRN (20:05)
[2021-06-03] MEDS: Albuterol 2.5 MG/3 ML NEBULIZER IH SCH ×5 (03:20→22:31)
[2021-06-03 05:04] LABS: Basophils % 0.3 %; Eosinophils % 0.5 %; Hematocrit 37.5 % (35.3-44.9); Hemoglobin 11.8 g/dL (11.5-15.4); Immature Granulocytes % 1.4 % (0-4); Lymphocytes # 2.1 K/mcL (0.6-4.6); Lymphocytes % 30.9 %; Mean Corpuscular HGB Conc 31.5 g/dL (31.6-35.5); Mean Corpuscular Hemoglobin 26.5 pg (28.0-33.3); Mean Corpuscular Volume 84.1 fL (83.0-100.0); Mean Platelet Volume 10.7 fL (9.4-12.4); Monocytes # 0.7 K/mcL (0.0-1.3); Monocytes % 9.9 %; Neutrophils # 3.8 K/mcL (1.6-8.9); Platelet Count 245 K/mcL (140-400); Red Blood Count 4.46 M/mcL (3.82-4.97); Red Cell Distribution Width 14.6 % (11.5-14.5); White Blood Count 6.7 K/mcL (4.3-11.1)
[2021-06-03] MEDS: *HR* Heparin 5,000 UNIT/ML VIAL SQ SCH ×2 (05:05→17:47)
[2021-06-03 05:25] LABS: BUN/Creatinine Ratio 24 (6-26); Blood Urea Nitrogen 14 mg/dL (6-20); Carbon Dioxide 26 mEq/L (23-29); Chloride 106 mEq/L (98-107); Glucose 143 mg/dL (70-105); Magnesium 1.7 mg/dL (1.6-2.6); Osmolality,Calculated 291 (280-300); Phosphorous 2.6 mg/dL (2.7-4.5); Potassium 3.8 mEq/L (3.5-5.1); Sodium 139 mEq/L (136-145); eGFR For African Americans > 60 (> 60); eGFR For Non-African Americans > 60 (> 60)
[2021-06-03] MEDS: Loratadine 10 MG TABLET PO SCH (07:54)
[2021-06-03] MEDS: PARoxetine 20 MG TABLET PO SCH (07:54)
[2021-06-03] MEDS: Lactobacillus 1 EACH CAP.SPRINK PO SCH ×2 (07:54→19:39)
[2021-06-03] MEDS: Pregabalin 75 MG CAPSULE PO SCH ×2 (07:54→19:39)
[2021-06-03] MEDS: valACYclovir 500 MG TABLET PO SCH (07:54)
[2021-06-03] MEDS: hydrOXYzine pamoate 25 MG CAPSULE PO SCH ×2 (07:54→19:39)
[2021-06-03] MEDS: levoFLOXacin 750 MG/150 ML 750 MG/150 ML BAG IVPB SCH (07:55)
[2021-06-03] MEDS: Insulin LISPRO 300 UNITS/3 ML VIAL SUBQ SCH ×3 (07:57→15:30)
[2021-06-03] MEDS: Acetaminophen 325 MG TABLET PO PRN (15:29)
[2021-06-03] MEDS ORDERED: Ipratropium 1 PUFF INHALER IH PRN (17:52)
[2021-06-03] MEDS: cloZAPine 100 MG TABLET PO SCH (19:39)
[2021-06-03] MEDS: traZODone 50 MG TABLET PO SCH (19:39)
[2021-06-04] MEDS: *HR* Heparin 5,000 UNIT/ML VIAL SQ SCH ×2 (05:02→18:30)
[2021-06-04] MEDS: Acetaminophen 325 MG TABLET PO PRN ×3 (05:24→21:38)
[2021-06-04 06:51] LABS: Basophils % 0.1 %; Eosinophils % 0.1 %; Hematocrit 35.5 % (35.3-44.9); Hemoglobin 11.2 g/dL (11.5-15.4); Lymphocytes # 2.1 K/mcL (0.6-4.6); Lymphocytes % 24.5 %; Mean Corpuscular HGB Conc 31.5 g/dL (31.6-35.5); Mean Corpuscular Hemoglobin 26.3 pg (28.0-33.3); Mean Corpuscular Volume 83.3 fL (83.0-100.0); Mean Platelet Volume 11.1 fL (9.4-12.4); Monocytes # 0.8 K/mcL (0.0-1.3); Monocytes % 8.7 %; Neutrophils # 5.7 K/mcL (1.6-8.9); Platelet Count 246 K/mcL (140-400); Red Blood Count 4.26 M/mcL (3.82-4.97); Red Cell Distribution Width 14.7 % (11.5-14.5); Segmented Neutrophils % 65.6 %; White Blood Count 8.7 K/mcL (4.3-11.1)
[2021-06-04 06:59] LABS: BUN/Creatinine Ratio 22 (6-26); Blood Urea Nitrogen 14 mg/dL (6-20); Carbon Dioxide 24 mEq/L (23-29); Chloride 101 mEq/L (98-107); Glucose 193 mg/dL (70-105); Magnesium 1.5 mg/dL (1.6-2.6); Osmolality,Calculated 286 (280-300); Phosphorous 2.5 mg/dL (2.7-4.5); Potassium 3.9 mEq/L (3.5-5.1); Sodium 135 mEq/L (136-145); eGFR For African Americans > 60 (> 60); eGFR For Non-African Americans > 60 (> 60)
[2021-06-04] MEDS ORDERED: Magnesium Oxide 400 MG TABLET PO ONE (07:44)
[2021-06-04] MEDS: levoFLOXacin 750 MG/150 ML 750 MG/150 ML BAG IVPB SCH (09:19)
[2021-06-04] MEDS: Lactobacillus 1 EACH CAP.SPRINK PO SCH ×2 (09:20→21:38)
[2021-06-04] MEDS: hydrOXYzine pamoate 25 MG CAPSULE PO SCH ×2 (09:20→21:38)
[2021-06-04] MEDS: valACYclovir 500 MG TABLET PO SCH (09:20)
[2021-06-04] MEDS: PARoxetine 20 MG TABLET PO SCH (09:21)
[2021-06-04] MEDS: Pregabalin 75 MG CAPSULE PO SCH ×2 (09:21→21:39)
[2021-06-04] MEDS: Loratadine 10 MG TABLET PO SCH (09:21)
[2021-06-04] MEDS: Insulin LISPRO 300 UNITS/3 ML VIAL SUBQ SCH ×3 (09:22→18:30)
[2021-06-04] MEDS: cloZAPine 100 MG TABLET PO SCH (21:38)
[2021-06-04] MEDS: traZODone 50 MG TABLET PO SCH (21:38)
[2021-06-05] MEDS: *HR* Heparin 5,000 UNIT/ML VIAL SQ SCH ×2 (05:30→18:36)
[2021-06-05] MEDS: Acetaminophen 325 MG TABLET PO PRN ×2 (05:30→15:07)
[2021-06-05 06:16] LABS: Basophils % 0.1 %; Eosinophils % 0.4 %; Hematocrit 34.8 % (35.3-44.9); Immature Granulocytes % 0.9 % (0-4); Lymphocytes % 25.2 %; Mean Corpuscular HGB Conc 31.6 g/dL (31.6-35.5); Mean Corpuscular Hemoglobin 26.5 pg (28.0-33.3); Mean Corpuscular Volume 83.9 fL (83.0-100.0); Mean Platelet Volume 11.3 fL (9.4-12.4); Monocytes # 0.6 K/mcL (0.0-1.3); Monocytes % 7.1 %; Neutrophils # 5.2 K/mcL (1.6-8.9); Platelet Count 225 K/mcL (140-400); Red Blood Count 4.15 M/mcL (3.82-4.97); Red Cell Distribution Width 14.8 % (11.5-14.5); Segmented Neutrophils % 66.3 %; White Blood Count 7.9 K/mcL (4.3-11.1)
[2021-06-05 06:28] LABS: BUN/Creatinine Ratio 17 (6-26); Blood Urea Nitrogen 11 mg/dL (6-20); Calcium 8.7 mg/dL (8.6-10.3); Carbon Dioxide 24 mEq/L (23-29); Chloride 103 mEq/L (98-107); Glucose 246 mg/dL (70-105); Magnesium 1.5 mg/dL (1.6-2.6); Osmolality,Calculated 290 (280-300); Phosphorous 2.4 mg/dL (2.7-4.5); Potassium 3.7 mEq/L (3.5-5.1); Sodium 136 mEq/L (136-145); eGFR For African Americans > 60 (> 60); eGFR For Non-African Americans > 60 (> 60)
[2021-06-05] MEDS: valACYclovir 500 MG TABLET PO SCH (08:50)
[2021-06-05] MEDS: PARoxetine 20 MG TABLET PO SCH (08:50)
[2021-06-05] MEDS: Lactobacillus 1 EACH CAP.SPRINK PO SCH ×2 (08:50→21:17)
[2021-06-05] MEDS: Loratadine 10 MG TABLET PO SCH (08:51)
[2021-06-05] MEDS: hydrOXYzine pamoate 25 MG CAPSULE PO SCH ×2 (08:51→21:18)
[2021-06-05] MEDS: Pregabalin 75 MG CAPSULE PO SCH ×2 (08:51→21:17)
[2021-06-05] MEDS: Insulin LISPRO 300 UNITS/3 ML VIAL SUBQ SCH ×3 (08:53→16:31)
[2021-06-05] MEDS: levoFLOXacin 750 MG/150 ML 750 MG/150 ML BAG IVPB SCH (08:54)
[2021-06-05] MEDS: Magnesium Oxide 400 MG TABLET PO SCH (15:03)
[2021-06-05] MEDS: cloZAPine 100 MG TABLET PO SCH (21:17)
[2021-06-05] MEDS: traZODone 50 MG TABLET PO SCH (21:17)
[2021-06-06 05:05] LABS: Basophils % 0.1 %; Eosinophils % 0.1 %; Hematocrit 35.4 % (35.3-44.9); Hemoglobin 11.4 g/dL (11.5-15.4); Immature Granulocytes % 0.9 % (0-4); Lymphocytes # 1.9 K/mcL (0.6-4.6); Lymphocytes % 25.3 %; Mean Corpuscular HGB Conc 32.2 g/dL (31.6-35.5); Mean Corpuscular Volume 83.9 fL (83.0-100.0); Mean Platelet Volume 11.2 fL (9.4-12.4); Monocytes # 0.6 K/mcL (0.0-1.3); Monocytes % 8.3 %; Neutrophils # 4.9 K/mcL (1.6-8.9); Platelet Count 212 K/mcL (140-400); Red Blood Count 4.22 M/mcL (3.82-4.97); Red Cell Distribution Width 15.1 % (11.5-14.5); Segmented Neutrophils % 65.3 %; White Blood Count 7.4 K/mcL (4.3-11.1)
[2021-06-06 05:27] LABS: BUN/Creatinine Ratio 19 (6-26); Blood Urea Nitrogen 12 mg/dL (6-20); Calcium 9.3 mg/dL (8.6-10.3); Carbon Dioxide 24 mEq/L (23-29); Chloride 102 mEq/L (98-107); Glucose 250 mg/dL (70-105); Magnesium 1.6 mg/dL (1.6-2.6); Osmolality,Calculated 292 (280-300); Phosphorous 2.8 mg/dL (2.7-4.5); Potassium 3.6 mEq/L (3.5-5.1); Sodium 137 mEq/L (136-145); eGFR For African Americans > 60 (> 60); eGFR For Non-African Americans > 60 (> 60)
[2021-06-06] MEDS: *HR* Heparin 5,000 UNIT/ML VIAL SQ SCH ×2 (05:42→17:23)
[2021-06-06] MEDS: Acetaminophen 325 MG TABLET PO PRN (06:34)
[2021-06-06] MEDS: Pregabalin 75 MG CAPSULE PO SCH ×2 (10:07→22:15)
[2021-06-06] MEDS: Magnesium Oxide 400 MG TABLET PO SCH (10:07)
[2021-06-06] MEDS: PARoxetine 20 MG TABLET PO SCH (10:07)
[2021-06-06] MEDS: Loratadine 10 MG TABLET PO SCH (10:08)
[2021-06-06] MEDS: hydrOXYzine pamoate 25 MG CAPSULE PO SCH ×2 (10:08→22:14)
[2021-06-06] MEDS: Lactobacillus 1 EACH CAP.SPRINK PO SCH ×2 (10:08→22:15)
[2021-06-06] MEDS: valACYclovir 500 MG TABLET PO SCH (10:08)
[2021-06-06] MEDS: levoFLOXacin 750 MG/150 ML 750 MG/150 ML BAG IVPB SCH (10:09)
[2021-06-06] MEDS: Insulin LISPRO 300 UNITS/3 ML VIAL SUBQ SCH ×3 (10:17→17:22)
[2021-06-06] MEDS: traZODone 50 MG TABLET PO SCH (22:14)
[2021-06-06] MEDS: cloZAPine 100 MG TABLET PO SCH (22:14)
[2021-06-07] MEDS: Acetaminophen 325 MG TABLET PO PRN (04:25)
[2021-06-07 05:32] LABS: Basophils % 0.2 %; Eosinophils % 0.1 %; Hemoglobin 11.3 g/dL (11.5-15.4); Immature Granulocytes % 1.1 % (0-4); Lymphocytes % 24.1 %; Mean Corpuscular HGB Conc 31.4 g/dL (31.6-35.5); Mean Corpuscular Hemoglobin 26.2 pg (28.0-33.3); Mean Corpuscular Volume 83.3 fL (83.0-100.0); Mean Platelet Volume 11.3 fL (9.4-12.4); Monocytes # 0.6 K/mcL (0.0-1.3); Neutrophils # 5.7 K/mcL (1.6-8.9); Platelet Count 210 K/mcL (140-400); Red Blood Count 4.32 M/mcL (3.82-4.97); Red Cell Distribution Width 15.2 % (11.5-14.5); Segmented Neutrophils % 67.5 %; White Blood Count 8.4 K/mcL (4.3-11.1)
[2021-06-07] MEDS: *HR* Heparin 5,000 UNIT/ML VIAL SQ SCH ×2 (05:40→17:31)
[2021-06-07 05:48] LABS: BUN/Creatinine Ratio 19 (6-26); Blood Urea Nitrogen 11 mg/dL (6-20); Calcium 9.5 mg/dL (8.6-10.3); Carbon Dioxide 24 mEq/L (23-29); Chloride 101 mEq/L (98-107); Glucose 243 mg/dL (70-105); Magnesium 1.5 mg/dL (1.6-2.6); Osmolality,Calculated 287 (280-300); Sodium 135 mEq/L (136-145); eGFR For African Americans > 60 (> 60); eGFR For Non-African Americans > 60 (> 60)
[2021-06-07] MEDS: Lactobacillus 1 EACH CAP.SPRINK PO SCH ×2 (08:56→20:57)
[2021-06-07] MEDS: Pregabalin 75 MG CAPSULE PO SCH ×2 (08:56→20:56)
[2021-06-07] MEDS: Loratadine 10 MG TABLET PO SCH (08:56)
[2021-06-07] MEDS: Magnesium Oxide 400 MG TABLET PO SCH (08:56)
[2021-06-07] MEDS: hydrOXYzine pamoate 25 MG CAPSULE PO SCH ×2 (08:56→20:56)
[2021-06-07] MEDS: valACYclovir 500 MG TABLET PO SCH (08:56)
[2021-06-07] MEDS: Insulin LISPRO 300 UNITS/3 ML VIAL SUBQ SCH ×3 (08:57→17:31)
[2021-06-07] MEDS: PARoxetine 20 MG TABLET PO SCH (09:06)
[2021-06-07] MEDS: cloZAPine 100 MG TABLET PO SCH (20:56)
[2021-06-07] MEDS: traZODone 50 MG TABLET PO SCH (20:56)
[2021-06-08 03:38] VITALS: PULSE 101
[2021-06-08] MEDS: *HR* Heparin 5,000 UNIT/ML VIAL SQ SCH (05:03)
[2021-06-08 08:18] LABS: Basophils % 0.3 %; Eosinophils % 0.4 %; Hematocrit 37.3 % (35.3-44.9); Hemoglobin 11.4 g/dL (11.5-15.4); Immature Granulocytes % 0.8 % (0-4); Lymphocytes # 2.4 K/mcL (0.6-4.6); Lymphocytes % 25.1 %; Mean Corpuscular HGB Conc 30.6 g/dL (31.6-35.5); Mean Corpuscular Hemoglobin 25.8 pg (28.0-33.3); Mean Corpuscular Volume 84.4 fL (83.0-100.0); Mean Platelet Volume 11.6 fL (9.4-12.4); Monocytes # 0.6 K/mcL (0.0-1.3); Monocytes % 6.5 %; Neutrophils # 6.4 K/mcL (1.6-8.9); Platelet Count 202 K/mcL (140-400); Red Blood Count 4.42 M/mcL (3.82-4.97); Red Cell Distribution Width 15.7 % (11.5-14.5); Segmented Neutrophils % 66.9 %; White Blood Count 9.6 K/mcL (4.3-11.1)
[2021-06-08 08:43] LABS: BUN/Creatinine Ratio 22 (6-26); Blood Urea Nitrogen 13 mg/dL (6-20); Calcium 9.2 mg/dL (8.6-10.3); Carbon Dioxide 24 mEq/L (23-29); Chloride 97 mEq/L (98-107); Glucose 301 mg/dL (70-105); Osmolality,Calculated 287 (280-300); Potassium 3.9 mEq/L (3.5-5.1); Sodium 133 mEq/L (136-145); eGFR For African Americans > 60 (> 60); eGFR For Non-African Americans > 60 (> 60)
[2021-06-08] MEDS: Insulin LISPRO 300 UNITS/3 ML VIAL SUBQ SCH ×2 (10:14→12:02)
[2021-06-08] MEDS: PARoxetine 20 MG TABLET PO SCH (10:15)
[2021-06-08] MEDS: hydrOXYzine pamoate 25 MG CAPSULE PO SCH (10:15)
[2021-06-08] MEDS: Loratadine 10 MG TABLET PO SCH (10:16)
[2021-06-08] MEDS: Magnesium Oxide 400 MG TABLET PO SCH (10:16)
[2021-06-08] MEDS: Lactobacillus 1 EACH CAP.SPRINK PO SCH (10:16)
[2021-06-08] MEDS: Pregabalin 75 MG CAPSULE PO SCH (10:16)
[2021-06-08] MEDS: valACYclovir 500 MG TABLET PO SCH (10:16)
[2021-06-08 11:44] VITALS: BP 115/64; TEMP 97.5; O2SAT 90
[2021-06-08] MEDS ORDERED: FLU Vac QV 21-22 (6Month+)/PF 0.5 ML SYRINGE IM ONE (14:45)
== END 2021-06-08 17:06 | disposition home health service (06) | DRG 137 ==
LOC: EMEROOARM 11:51 → 3BNU 11:51 → SUATTDRO 16:28 → 3BNU 17:00 → 2NNU 06-01 09:31 → 3NENU 06-04 08:28
PROVIDERS: ADMIT Internal Medicine; ATTEND Internal Medicine

== ENCOUNTER 2021-06-10 08:54 | Inpatient (IN) ==
[2021-06-10] MEDS ORDERED: 0.9 % Sodium Chloride 1,000 ML ONE (09:09)
[2021-06-10 09:31] LABS: Basophils # 0.1 K/mcL (0.0-0.2); Basophils % 0.3 %; Eosinophils # 0.1 K/mcL (0.0-0.6); Eosinophils % 0.9 %; Hematocrit 44.5 % (35.3-44.9); Immature Granulocytes % 0.6 % (0-4); Lymphocytes # 1.3 K/mcL (0.6-4.6); Lymphocytes % 8.4 %; Mean Corpuscular HGB Conc 30.8 g/dL (31.6-35.5); Mean Corpuscular Hemoglobin 26.1 pg (28.0-33.3); Mean Corpuscular Volume 84.9 fL (83.0-100.0); Mean Platelet Volume 10.9 fL (9.4-12.4); Monocytes # 0.4 K/mcL (0.0-1.3); Monocytes % 2.5 %; Platelet Count 212 K/mcL (140-400); Red Blood Count 5.24 M/mcL (3.82-4.97); Segmented Neutrophils % 87.3 %
[2021-06-10 09:32] LABS: Hemoglobin 13.7 g/dL (11.5-15.4); Neutrophils # 13.4 K/mcL (1.6-8.9); White Blood Count 15.4 K/mcL (4.3-11.1)
[2021-06-10 09:52] LABS: BUN/Creatinine Ratio 18 (6-26); Blood Urea Nitrogen 15 mg/dL (6-20); Calcium 9.9 mg/dL (8.6-10.3); Carbon Dioxide 26 mEq/L (23-29); Chloride 101 mEq/L (98-107); Glucose 133 mg/dL (70-105); Osmolality,Calculated 291 (280-300); Potassium 3.5 mEq/L (3.5-5.1); Sodium 139 mEq/L (136-145); Troponin I < 0.03 ng/mL (< 0.04); eGFR For African Americans > 60 (> 60); eGFR For Non-African Americans > 60 (> 60)
[2021-06-10] MEDS ORDERED: Isovue-370 500 ML BOTTLE IVP ONE (09:54)
[2021-06-10 10:17] LABS: Bacteria,Urine Few per hpf (None-Few); Bilirubin,Urine Negative (Negative); Blood,Urine Trace (Negative); Clarity,Urine Turbid (Clear); Color,Urine Light-Yellow (Yellow); Glucose,Urine (UA) >=1000 mg/dL (Normal); Hyaline Casts,Urine Few per lpf (None Seen); Ketones,Urine Negative (Negative); Leukocyte Esterase,Urine Large (Negative); Mucus,Urine Few per lpf (None-Few); Nitrite,Urine Negative (Negative); Protein,Urine Trace mg/dL (Neg-Trace); Specific Gravity,Urine 1.014 (1.010-1.025); Squamous Epithelial Cell,Urine Few per hpf (None-Few); Urobilinogen,Urine Normal (Normal); WBC,Urine 0-3 per hpf (0-3)
[2021-06-10] MEDS ORDERED: Piperacillin/Tazobactam 3.375 GM in 0.9 % Sodium Chloride Mini Bag 100 ML IVPB ONE (11:40)
[2021-06-10] MEDS ORDERED: Melatonin 3 MG TABLET PO PRN (11:44)
[2021-06-10] MEDS ORDERED: Naloxone 0.4 MG/ML INJ IVP PRN (11:44)
[2021-06-10] MEDS ORDERED: Ondansetron ODT 4 MG TAB.RAPDIS SL PRN (11:44)
[2021-06-10] MEDS ORDERED: Mag Hydrox/Al Hydrox/Simeth 30 ML UDC PO PRN (11:44)
[2021-06-10] MEDS ORDERED: Albuterol 2.5 MG/3 ML NEBULIZER IH PRN (12:53)
[2021-06-10] MEDS ORDERED: D5% in Water 1,000 ML IVC PRN (13:50)
[2021-06-10] MEDS ORDERED: Dextrose Gel 15 GM/37.5 ML TUBE PO PRN ×2 (13:50)
[2021-06-10] MEDS ORDERED: *HR* Dextrose 50 % in Water (Syg) 50 ML SYRINGE IVP PRN (13:50)
[2021-06-10] MEDS ORDERED: 0.9 % Sodium Chloride 1,000 ML IVC ONE (13:55)
[2021-06-10 14:51] LABS: Thyroid Stimulating Hormone 0.417 mcIU/mL (0.340-5.600)
[2021-06-10] MEDS: predniSONE 20 MG TABLET PO SCH (18:15)
[2021-06-10] MEDS: Insulin LISPRO 300 UNITS/3 ML VIAL SUBQ SCH ×2 (18:17→22:30)
[2021-06-10] MEDS: Ipratropium/Albuterol Neb 3 ML IH SCH ×2 (18:27→20:47)
[2021-06-10] MEDS: Piperacillin/Tazobactam 3.375 GM in 0.9 % Sodium Chloride Mini Bag 100 ML IVPB SCH (22:18)
[2021-06-10] MEDS: Pregabalin 75 MG CAPSULE PO SCH (22:33)
[2021-06-10] MEDS: traZODone 50 MG TABLET PO SCH (22:33)
[2021-06-10] MEDS: hydrOXYzine pamoate 25 MG CAPSULE PO SCH (22:33)
[2021-06-10] MEDS: Lactobacillus 1 EACH CAP.SPRINK PO SCH (22:33)
[2021-06-10] MEDS: cloZAPine 100 MG TABLET PO SCH (23:10)
[2021-06-11] MEDS: Ipratropium/Albuterol Neb 3 ML IH SCH ×7 (00:27→23:12)
[2021-06-11] MEDS: Vancomycin 1,250 MG/262.5 ML IV.SOLN IVPB SCH ×2 (03:19→12:10)
[2021-06-11] MEDS: Piperacillin/Tazobactam 3.375 GM in 0.9 % Sodium Chloride Mini Bag 100 ML IVPB SCH ×3 (05:42→21:34)
[2021-06-11] MEDS: *HR* Enoxaparin 40 MG/0.4 ML SYRINGE SQ SCH (05:43)
[2021-06-11 06:25] LABS: Basophils % 0.2 %; Eosinophils % 0.1 %; Hematocrit 34.6 % (35.3-44.9); Hemoglobin 10.9 g/dL (11.5-15.4); Lymphocytes # 0.8 K/mcL (0.6-4.6); Lymphocytes % 8.2 %; Mean Corpuscular HGB Conc 31.5 g/dL (31.6-35.5); Mean Corpuscular Hemoglobin 26.7 pg (28.0-33.3); Mean Corpuscular Volume 84.6 fL (83.0-100.0); Mean Platelet Volume 11.1 fL (9.4-12.4); Monocytes # 0.3 K/mcL (0.0-1.3); Monocytes % 2.6 %; Neutrophils # 8.6 K/mcL (1.6-8.9); Platelet Count 177 K/mcL (140-400); Red Blood Count 4.09 M/mcL (3.82-4.97); Red Cell Distribution Width 16.4 % (11.5-14.5); Segmented Neutrophils % 87.9 %; White Blood Count 9.8 K/mcL (4.3-11.1)
[2021-06-11 06:43] LABS: Alanine Aminotransferase 9 Units/L (7-52); Albumin 3.4 g/dL (3.5-5.7); Albumin/Globulin Ratio 1.7 (1.1-2.2); Alkaline Phosphatase 57 Units/L (34-104); Aspartate Amino Transferase 10 Units/L (13-39); BUN/Creatinine Ratio 16 (6-26); Bilirubin,Total 0.6 mg/dL (0.3-1.0); Blood Urea Nitrogen 9 mg/dL (6-20); Calcium 8.9 mg/dL (8.6-10.3); Carbon Dioxide 26 mEq/L (23-29); Chloride 105 mEq/L (98-107); Glucose 170 mg/dL (70-105); Osmolality,Calculated 289 (280-300); Potassium 4.1 mEq/L (3.5-5.1); Sodium 138 mEq/L (136-145); Total Protein 5.4 g/dL (6.4-8.9); eGFR For African Americans > 60 (> 60); eGFR For Non-African Americans > 60 (> 60)
[2021-06-11] MEDS ORDERED: estradioL 0.5 MG TABLET PO SCH (09:00)
[2021-06-11] MEDS: Pregabalin 75 MG CAPSULE PO SCH ×2 (09:15→21:37)
[2021-06-11] MEDS: predniSONE 20 MG TABLET PO SCH (09:15)
[2021-06-11] MEDS: hydrOXYzine pamoate 25 MG CAPSULE PO SCH ×2 (09:16→21:39)
[2021-06-11] MEDS: Lactobacillus 1 EACH CAP.SPRINK PO SCH ×2 (09:16→21:37)
[2021-06-11] MEDS: valACYclovir 500 MG TABLET PO SCH (09:16)
[2021-06-11] MEDS: PARoxetine 20 MG TABLET PO SCH (09:16)
[2021-06-11] MEDS: Insulin LISPRO 300 UNITS/3 ML VIAL SUBQ SCH ×4 (09:24→21:39)
[2021-06-11] MEDS: cloZAPine 100 MG TABLET PO SCH (21:37)
[2021-06-11] MEDS: traZODone 50 MG TABLET PO SCH (21:39)
[2021-06-11] MEDS: Insulin DETEMIR 100 UNIT/ML X5UNITS SUBQ SCH (21:39)
[2021-06-12] MEDS: Vancomycin 1,250 MG/262.5 ML IV.SOLN IVPB SCH ×2 (02:00→21:58)
[2021-06-12] MEDS: Ipratropium/Albuterol Neb 3 ML IH SCH ×6 (03:37→23:16)
[2021-06-12] MEDS: *HR* Enoxaparin 40 MG/0.4 ML SYRINGE SQ SCH (05:20)
[2021-06-12] MEDS: Piperacillin/Tazobactam 3.375 GM in 0.9 % Sodium Chloride Mini Bag 100 ML IVPB SCH ×3 (05:21→21:59)
[2021-06-12] MEDS: Pregabalin 75 MG CAPSULE PO SCH ×2 (09:20→22:11)
[2021-06-12] MEDS: predniSONE 20 MG TABLET PO SCH (09:20)
[2021-06-12] MEDS: hydrOXYzine pamoate 25 MG CAPSULE PO SCH ×2 (09:20→22:11)
[2021-06-12] MEDS: Lactobacillus 1 EACH CAP.SPRINK PO SCH ×2 (09:21→22:11)
[2021-06-12] MEDS: PARoxetine 20 MG TABLET PO SCH (09:21)
[2021-06-12] MEDS: valACYclovir 500 MG TABLET PO SCH (09:21)
[2021-06-12] MEDS: Insulin LISPRO 300 UNITS/3 ML VIAL SUBQ SCH ×4 (09:23→22:12)
[2021-06-12 09:49] LABS: Basophils % 0.3 %; Eosinophils # 0.1 K/mcL (0.0-0.6); Eosinophils % 1.3 %; Hematocrit 33.6 % (35.3-44.9); Hemoglobin 10.4 g/dL (11.5-15.4); Immature Granulocytes % 0.8 % (0-4); Lymphocytes # 1.9 K/mcL (0.6-4.6); Lymphocytes % 19.6 %; Mean Corpuscular Hemoglobin 27.1 pg (28.0-33.3); Mean Corpuscular Volume 87.5 fL (83.0-100.0); Mean Platelet Volume 11.1 fL (9.4-12.4); Monocytes # 0.5 K/mcL (0.0-1.3); Monocytes % 4.9 %; Platelet Count 145 K/mcL (140-400); Red Blood Count 3.84 M/mcL (3.82-4.97); Red Cell Distribution Width 16.7 % (11.5-14.5); Segmented Neutrophils % 73.1 %; White Blood Count 9.5 K/mcL (4.3-11.1)
[2021-06-12 10:09] LABS: BUN/Creatinine Ratio 17 (6-26); Blood Urea Nitrogen 12 mg/dL (6-20); Calcium 8.8 mg/dL (8.6-10.3); Carbon Dioxide 23 mEq/L (23-29); Chloride 105 mEq/L (98-107); Glucose 267 mg/dL (70-105); Osmolality,Calculated 291 (280-300); Potassium 3.7 mEq/L (3.5-5.1); Sodium 136 mEq/L (136-145); eGFR For African Americans > 60 (> 60); eGFR For Non-African Americans > 60 (> 60)
[2021-06-12] MEDS: cloZAPine 100 MG TABLET PO SCH (22:10)
[2021-06-12] MEDS: traZODone 50 MG TABLET PO SCH (22:11)
[2021-06-12] MEDS: Insulin DETEMIR 100 UNIT/ML X5UNITS SUBQ SCH (22:11)
[2021-06-13] MEDS: Vancomycin 1,250 MG/262.5 ML IV.SOLN IVPB SCH ×2 (00:53→13:13)
[2021-06-13] MEDS: Ipratropium/Albuterol Neb 3 ML IH SCH ×4 (03:40→15:28)
[2021-06-13] MEDS: Piperacillin/Tazobactam 3.375 GM in 0.9 % Sodium Chloride Mini Bag 100 ML IVPB SCH (05:26)
[2021-06-13] MEDS: *HR* Enoxaparin 40 MG/0.4 ML SYRINGE SQ SCH (05:27)
[2021-06-13] MEDS: predniSONE 20 MG TABLET PO SCH (07:45)
[2021-06-13] MEDS: Lactobacillus 1 EACH CAP.SPRINK PO SCH (07:46)
[2021-06-13] MEDS: PARoxetine 20 MG TABLET PO SCH (07:46)
[2021-06-13] MEDS: Pregabalin 75 MG CAPSULE PO SCH (07:46)
[2021-06-13] MEDS: hydrOXYzine pamoate 25 MG CAPSULE PO SCH (07:46)
[2021-06-13] MEDS: valACYclovir 500 MG TABLET PO SCH (07:46)
[2021-06-13] MEDS: Insulin LISPRO 300 UNITS/3 ML VIAL SUBQ SCH ×2 (07:48→13:19)
[2021-06-13 11:47] VITALS: O2SAT 98
[2021-06-13 14:02] LABS: Basophils % 0.1 %; Eosinophils % 0.1 %; Hematocrit 35.6 % (35.3-44.9); Hemoglobin 10.9 g/dL (11.5-15.4); Immature Granulocytes % 0.8 % (0-4); Lymphocytes # 0.9 K/mcL (0.6-4.6); Lymphocytes % 10.5 %; Mean Corpuscular HGB Conc 30.6 g/dL (31.6-35.5); Mean Corpuscular Hemoglobin 26.4 pg (28.0-33.3); Mean Corpuscular Volume 86.2 fL (83.0-100.0); Monocytes # 0.2 K/mcL (0.0-1.3); Monocytes % 1.9 %; Neutrophils # 7.3 K/mcL (1.6-8.9); Platelet Count 163 K/mcL (140-400); Red Blood Count 4.13 M/mcL (3.82-4.97); Red Cell Distribution Width 16.5 % (11.5-14.5); Segmented Neutrophils % 86.6 %; White Blood Count 8.4 K/mcL (4.3-11.1)
[2021-06-13 14:19] LABS: BUN/Creatinine Ratio 25 (6-26); Blood Urea Nitrogen 15 mg/dL (6-20); Carbon Dioxide 23 mEq/L (23-29); Chloride 103 mEq/L (98-107); Potassium 4.4 mEq/L (3.5-5.1); Sodium 136 mEq/L (136-145); eGFR For African Americans > 60 (> 60)
[2021-06-13 14:20] LABS: Calcium 9.2 mg/dL (8.6-10.3); Glucose 323 mg/dL (70-105); Osmolality,Calculated 295 (280-300); eGFR For Non-African Americans > 60 (> 60)
[2021-06-13 16:02] VITALS: BP 123/98; PULSE 98; TEMP 98
== END 2021-06-13 17:29 | disposition home health service (06) | DRG 720 ==
LOC: SUATTDRO → EMEROOARM 08:54 → SUATTDRO 20:05 → 2NENU 20:05
PROVIDERS: ADMIT Family Medicine; ATTEND Internal Medicine

== ENCOUNTER 2021-11-11 19:46 | Observation (INO) ==
[2021-11-11] MEDS ORDERED: Isovue-370 500 ML BOTTLE IVP ONE (21:11)
[2021-11-11] MEDS ORDERED: 0.9 % Sodium Chloride 1,000 ML IVC ONE (21:14)
[2021-11-11 21:27] LABS: Basophils % 0.6 %; Eosinophils % 0.2 %; Hemoglobin 11.5 g/dL (11.5-15.4); Immature Granulocytes % 1.1 % (0-4); Lymphocytes # 1.2 K/mcL (0.6-4.6); Lymphocytes % 22.8 %; Mean Corpuscular HGB Conc 31.1 g/dL (31.6-35.5); Mean Corpuscular Hemoglobin 24.8 pg (28.0-33.3); Mean Corpuscular Volume 79.9 fL (83.0-100.0); Mean Platelet Volume 10.6 fL (9.4-12.4); Monocytes # 0.5 K/mcL (0.0-1.3); Monocytes % 9.3 %; Neutrophils # 3.5 K/mcL (1.6-8.9); Platelet Count 197 K/mcL (140-400); Red Blood Count 4.63 M/mcL (3.82-4.97); Red Cell Distribution Width 14.3 % (11.5-14.5); White Blood Count 5.3 K/mcL (4.3-11.1)
[2021-11-11 21:47] LABS: BUN/Creatinine Ratio 22 (6-26); Blood Urea Nitrogen 16 mg/dL (6-20); Calcium 8.8 mg/dL (8.6-10.3); Carbon Dioxide 20 mEq/L (23-29); Chloride 105 mEq/L (98-107); Glucose 95 mg/dL (70-105); Magnesium 1.6 mg/dL (1.6-2.6); Osmolality,Calculated 285 (280-300); Potassium 3.7 mEq/L (3.5-5.1); Sodium 137 mEq/L (136-145); Troponin I < 0.03 ng/mL (< 0.04); eGFR For African Americans > 60 (> 60); eGFR For Non-African Americans > 60 (> 60)
[2021-11-12] MEDS ORDERED: Ketorolac 30 MG/ML VIAL IVP ONE (01:32)
[2021-11-12] MEDS ORDERED: Naloxone 0.4 MG/ML INJ IVP PRN (01:46)
[2021-11-12] MEDS ORDERED: Melatonin 3 MG TABLET PO PRN (01:46)
[2021-11-12] MEDS ORDERED: Dextrose 4 GM Chewable Tablets PO PRN ×2 (02:13)
[2021-11-12] MEDS ORDERED: *HR* Dextrose 50 % in Water (Syg) 50 ML SYRINGE IVP PRN (02:13)
[2021-11-12] MEDS ORDERED: D5% in Water 1,000 ML IVC PRN (02:13)
[2021-11-12] MEDS ORDERED: Perflutren Lipid Microsphere 1.3 ML in 0.9 % Sodium Chloride 8.7 ML IVP PRN (02:53)
[2021-11-12 04:45] LABS: Basophils % 0.5 %; Hematocrit 35.8 % (35.3-44.9); Hemoglobin 11.1 g/dL (11.5-15.4); Immature Granulocytes % 0.7 % (0-4); Lymphocytes # 1.3 K/mcL (0.6-4.6); Lymphocytes % 30.9 %; Mean Corpuscular Hemoglobin 24.9 pg (28.0-33.3); Mean Corpuscular Volume 80.4 fL (83.0-100.0); Mean Platelet Volume 10.9 fL (9.4-12.4); Monocytes # 0.5 K/mcL (0.0-1.3); Monocytes % 10.5 %; Neutrophils # 2.5 K/mcL (1.6-8.9); Platelet Count 196 K/mcL (140-400); Red Blood Count 4.45 M/mcL (3.82-4.97); Red Cell Distribution Width 14.4 % (11.5-14.5); Segmented Neutrophils % 57.4 %; White Blood Count 4.3 K/mcL (4.3-11.1)
[2021-11-12 05:05] LABS: Alanine Aminotransferase 15 Units/L (7-52); Albumin/Globulin Ratio 2.7 (1.1-2.2); Alkaline Phosphatase 57 Units/L (34-104); Aspartate Amino Transferase 16 Units/L (13-39); BUN/Creatinine Ratio 19 (6-26); Bilirubin,Total 0.4 mg/dL (0.3-1.0); Blood Urea Nitrogen 15 mg/dL (6-20); Calcium 8.6 mg/dL (8.6-10.3); Carbon Dioxide 22 mEq/L (23-29); Chloride 108 mEq/L (98-107); Globulin 1.5 g/dL (2.4-3.5); Glucose 122 mg/dL (70-105); Magnesium 2.5 mg/dL (1.6-2.6); Osmolality,Calculated 292 (280-300); Phosphorous 3.2 mg/dL (2.7-4.5); Potassium 3.8 mEq/L (3.5-5.1); Sodium 140 mEq/L (136-145); Total Protein 5.5 g/dL (6.4-8.9); eGFR For African Americans > 60 (> 60); eGFR For Non-African Americans > 60 (> 60)
[2021-11-12] MEDS: PARoxetine 20 MG TABLET PO SCH (07:38)
[2021-11-12] MEDS: Pregabalin 75 MG CAPSULE PO SCH ×2 (07:38→21:14)
[2021-11-12] MEDS: Insulin LISPRO 300 UNITS/3 ML VIAL SUBQ SCH ×3 (07:39→15:56)
[2021-11-12] MEDS ORDERED: Acetaminophen 325 MG TABLET PO PRN (08:41)
[2021-11-12] MEDS ORDERED: Regadenoson 0.4 MG/5 ML SYRINGE IVP ONE (09:40)
[2021-11-12] MEDS ORDERED: *HR* Heparin 10,000 UNIT/10 ML VIAL ONE (13:32)
[2021-11-12] MEDS ORDERED: 0.9 % Sodium Chloride 2,000 ML ONE (13:33)
[2021-11-12] MEDS ORDERED: Heparin 1,000 UNITS/500 mL 500 ML ONE ×2 (13:33→15:00)
[2021-11-12] MEDS ORDERED: Nitroglycerin 1,000 MCG/5 ML VIAL IV ONE (13:33)
[2021-11-12] MEDS ORDERED: ISOVUE-370 200 ML INFUS..BTL ONE ×2 (13:33→15:00)
[2021-11-12] MEDS ORDERED: *HR* Midazolam HCl 2 MG/2 ML VIAL ONE ×2 (14:05→15:29)
[2021-11-12] MEDS ORDERED: *HR* FentaNYL (PF) 100 MCG/2 ML VIAL ONE (14:05)
[2021-11-12] MEDS: Aspirin 81 MG TAB.CHEW PO SCH (16:10)
[2021-11-12] MEDS ORDERED: Simethicone 80 MG TAB.CHEW PO PRN (18:09)
[2021-11-12] MEDS ORDERED: Insulin LISPRO 300 UNITS/3 ML VIAL SUBQ SCH (21:00)
[2021-11-12] MEDS ORDERED: traZODone 50 MG TABLET PO ONE (22:10)
[2021-11-12] MEDS ORDERED: cloZAPine 100 MG TABLET PO ONE (22:11)
[2021-11-13 01:44] LABS: Hematocrit 35.3 % (35.3-44.9); Hemoglobin 10.7 g/dL (11.5-15.4); Mean Corpuscular HGB Conc 30.3 g/dL (31.6-35.5); Mean Corpuscular Hemoglobin 24.3 pg (28.0-33.3); Mean Corpuscular Volume 80.2 fL (83.0-100.0); Mean Platelet Volume 10.9 fL (9.4-12.4); Platelet Count 178 K/mcL (140-400); Red Cell Distribution Width 14.5 % (11.5-14.5); White Blood Count 3.8 K/mcL (4.3-11.1)
[2021-11-13 02:02] LABS: BUN/Creatinine Ratio 16 (6-26); Blood Urea Nitrogen 13 mg/dL (6-20); Calcium 8.5 mg/dL (8.6-10.3); Carbon Dioxide 21 mEq/L (23-29); Chloride 111 mEq/L (98-107); Glucose 173 mg/dL (70-105); Magnesium 2.1 mg/dL (1.6-2.6); Osmolality,Calculated 294 (280-300); Potassium 3.9 mEq/L (3.5-5.1); Sodium 140 mEq/L (136-145); eGFR For African Americans > 60 (> 60); eGFR For Non-African Americans > 60 (> 60)
[2021-11-13] MEDS: Pregabalin 75 MG CAPSULE PO SCH (09:10)
[2021-11-13] MEDS: PARoxetine 20 MG TABLET PO SCH (09:10)
[2021-11-13] MEDS: Aspirin 81 MG TAB.CHEW PO SCH (09:10)
[2021-11-13] MEDS: Insulin LISPRO 300 UNITS/3 ML VIAL SUBQ SCH ×2 (09:15→12:55)
[2021-11-13 15:47] VITALS: BP 99/60; PULSE 79; TEMP 97.6; O2SAT 98
== END 2021-11-13 17:45 | disposition home or self-care (01) ==
LOC: EMEROOARM 19:46 → 3BNU 19:46 → SUATTDRO 11-12 01:50 → 3BNU 11-12 02:35
PROVIDERS: ADMIT Internal Medicine; ATTEND Internal Medicine

== ENCOUNTER 2022-04-11 15:25 | Observation (INO) ==
[2022-04-11] MEDS ORDERED: 0.9 % Sodium Chloride 1,000 ML ONE (16:21)
[2022-04-11] MEDS ORDERED: 0.9 % Sodium Chloride 1,000 ML IV ONE (16:23)
[2022-04-11 16:43] LABS: BUN/Creatinine Ratio 12 (6-26); Blood Urea Nitrogen 15 mg/dL (6-20); Calcium 8.7 mg/dL (8.6-10.3); Carbon Dioxide 21 mEq/L (23-29); Chloride 105 mEq/L (98-107); Glucose 167 mg/dL (70-105); Osmolality,Calculated 287 (280-300); Potassium 4.1 mEq/L (3.5-5.1); Sodium 136 mEq/L (136-145); Troponin I < 0.03 ng/mL (< 0.04)
[2022-04-11 17:21] LABS: Basophils % 0.6 %; Eosinophils % 0.4 %; Red Blood Count 4.34 M/mcL (3.82-4.97)
[2022-04-11 17:22] LABS: Hematocrit 33.6 % (35.3-44.9); Hemoglobin 9.7 g/dL (11.5-15.4); Immature Granulocytes % 0.2 % (0-4); Lymphocytes % 29.2 %; Mean Corpuscular HGB Conc 28.9 g/dL (31.6-35.5); Mean Corpuscular Hemoglobin 22.4 pg (28.0-33.3); Mean Corpuscular Volume 77.4 fL (83.0-100.0); Mean Platelet Volume 10.7 fL (9.4-12.4); Monocytes # 0.5 K/mcL (0.0-1.3); Monocytes % 8.5 %; Neutrophils # 3.2 K/mcL (1.6-8.9); Platelet Count 200 K/mcL (140-400); Red Cell Distribution Width 17.5 % (11.5-14.5); Segmented Neutrophils % 61.1 %; White Blood Count 5.3 K/mcL (4.3-11.1)
[2022-04-11 17:23] LABS: Lymphocytes # 1.6 K/mcL (0.6-4.6)
[2022-04-11] MEDS ORDERED: Ondansetron 4 MG/2 ML VIAL IVP ONE (17:31)
[2022-04-11 17:34] LABS: INR 1.1; Prothrombin Time 11.9 Seconds (9.4-12.1)
[2022-04-11 17:39] LABS: Activated Partial Thrombo Time 33.3 Seconds (26.0-36.0)
[2022-04-11 17:48] LABS: Microcytosis Present (Not Present); Platelet Estimate Normal (Normal)
[2022-04-11] MEDS ORDERED: 0.9 % Sodium Chloride 500 ML IVC ONE (18:05)
[2022-04-11] MEDS ORDERED: cefTRIAXone 1,000 MG in 0.9 % Sodium Chloride 10 ML IVP ONE (18:19)
[2022-04-11] MEDS ORDERED: Azithromycin 500 MG in 0.9 % Sodium Chloride 250 ML IVPB ONE (18:22)
[2022-04-11] MEDS: 0.9 % Sodium Chloride 1,000 ML IVC SCH ×2 (18:47→22:44)
[2022-04-11] MEDS ORDERED: Ondansetron ODT 4 MG TAB.RAPDIS SL PRN (20:22)
[2022-04-11] MEDS ORDERED: Naloxone 0.4 MG/ML INJ IVP PRN (20:22)
[2022-04-11] MEDS ORDERED: Melatonin 3 MG TABLET PO PRN (20:22)
[2022-04-11] MEDS ORDERED: 0.9 % Sodium Chloride 500 ML IVC SCH (20:30)
[2022-04-11] MEDS ORDERED: D5% in Water 1,000 ML IVC PRN (20:47)
[2022-04-11] MEDS ORDERED: *HR* Dextrose 50 % in Water (Syg) 50 ML SYRINGE IVP PRN (20:47)
[2022-04-11] MEDS ORDERED: Dextrose Gel 15 GM/37.5 ML TUBE PO PRN ×2 (20:47)
[2022-04-11] MEDS: *HR* Heparin 5,000 UNIT/ML VIAL SQ SCH (22:43)
[2022-04-11] MEDS: Insulin LISPRO 300 UNITS/3 ML VIAL SUBQ SCH (22:46)
[2022-04-12 00:03] LABS: Sodium, Urine 42.8 mEq/L
[2022-04-12 03:43] LABS: Hemoglobin 9.6 g/dL (11.5-15.4); Immature Granulocytes % 0.3 % (0-4); Mean Platelet Volume 10.8 fL (9.4-12.4)
[2022-04-12 03:44] LABS: Basophils % 0.8 %; Eosinophils % 0.3 %; Hematocrit 33.3 % (35.3-44.9); Lymphocytes # 1.3 K/mcL (0.6-4.6); Lymphocytes % 35.9 %; Mean Corpuscular HGB Conc 28.8 g/dL (31.6-35.5); Mean Corpuscular Hemoglobin 22.3 pg (28.0-33.3); Mean Corpuscular Volume 77.3 fL (83.0-100.0); Monocytes # 0.3 K/mcL (0.0-1.3); Monocytes % 7.9 %; Platelet Count 184 K/mcL (140-400); Red Blood Count 4.31 M/mcL (3.82-4.97); Red Cell Distribution Width 17.6 % (11.5-14.5); Segmented Neutrophils % 54.8 %; White Blood Count 3.7 K/mcL (4.3-11.1)
[2022-04-12 04:04] LABS: Albumin 3.5 g/dL (3.5-5.7); Albumin/Globulin Ratio 1.9 (1.1-2.2); Bilirubin,Total 0.2 mg/dL (0.3-1.0); Calcium 8.3 mg/dL (8.6-10.3); Globulin 1.8 g/dL (2.4-3.5); Total Protein 5.3 g/dL (6.4-8.9)
[2022-04-12 04:05] LABS: % Iron Saturation 5 % (15-50); Iron 23 mcg/dL (50-170); Lactate Dehydrogenase 145 Units/L (140-271); Transferrin 304 mg/dL (203-362)
[2022-04-12 04:06] LABS: Platelet Estimate Normal (Normal); Reactive Lymphocytes Present (Not Present)
[2022-04-12 04:16] LABS: Ferritin 48 ng/mL (10-120)
[2022-04-12 04:22] LABS: Hypochromasia Present (Not Present); Microcytosis Present (Not Present)
[2022-04-12 04:24] LABS: Immature Reticulocyte % 15.9 % (11.0-38.0); Retculocyte # 0.07 M/mcL (0.05-0.10); Reticulocyte % 1.6 % (1.6-2.8)
[2022-04-12] MEDS ORDERED: Ipratropium/Albuterol Neb 3 ML IH PRN (05:28)
[2022-04-12] MEDS: 0.9 % Sodium Chloride 1,000 ML IVC SCH (06:49)
[2022-04-12] MEDS: *HR* Heparin 5,000 UNIT/ML VIAL SQ SCH (06:49)
[2022-04-12] MEDS: Insulin LISPRO 300 UNITS/3 ML VIAL SUBQ SCH ×4 (07:38→20:58)
[2022-04-12] MEDS ORDERED: Acetaminophen 325 MG TABLET PO PRN (09:15)
[2022-04-12] MEDS: *HR* OxyCODONE Immed Rel 5 MG TABLET PO PRN ×2 (09:38→15:50)
[2022-04-12] MEDS: Iron Sucrose Complex 200 MG in 0.9 % Sodium Chloride 100 ML IVPB SCH (09:39)
[2022-04-12] MEDS ORDERED: Albuterol 2.5 MG/3 ML NEBULIZER IH PRN (22:03)
[2022-04-12] MEDS ORDERED: Fluticasone Propionate Nasal 50 MCG/SPRAY BOTTLE NS PRN (22:03)
[2022-04-12] MEDS: Pregabalin 75 MG CAPSULE PO SCH (22:48)
[2022-04-12] MEDS: Sucralfate 1 GM TABLET PO SCH (23:59)
[2022-04-13 03:29] LABS: Basophils % 0.5 %; Eosinophils % 0.7 %; Hematocrit 32.1 % (35.3-44.9); Hemoglobin 9.4 g/dL (11.5-15.4); Lymphocytes # 1.5 K/mcL (0.6-4.6); Lymphocytes % 38.1 %; Mean Corpuscular HGB Conc 29.3 g/dL (31.6-35.5); Mean Corpuscular Hemoglobin 22.4 pg (28.0-33.3); Mean Corpuscular Volume 76.6 fL (83.0-100.0); Mean Platelet Volume 10.7 fL (9.4-12.4); Monocytes # 0.3 K/mcL (0.0-1.3); Monocytes % 7.2 %; Neutrophils # 2.2 K/mcL (1.6-8.9); Platelet Count 196 K/mcL (140-400); Red Blood Count 4.19 M/mcL (3.82-4.97); Red Cell Distribution Width 17.8 % (11.5-14.5); Segmented Neutrophils % 53.5 %
[2022-04-13 03:44] LABS: Calcium 8.9 mg/dL (8.6-10.3); Magnesium 1.8 mg/dL (1.6-2.6); Potassium 3.8 mEq/L (3.5-5.1)
[2022-04-13 07:45] VITALS: BP 116/77; TEMP 98
[2022-04-13] MEDS: Insulin LISPRO 300 UNITS/3 ML VIAL SUBQ SCH (08:40)
[2022-04-13] MEDS: Pregabalin 75 MG CAPSULE PO SCH (08:55)
[2022-04-13] MEDS: Sucralfate 1 GM TABLET PO SCH (08:55)
[2022-04-13] MEDS: *HR* OxyCODONE Immed Rel 5 MG TABLET PO PRN (08:56)
[2022-04-13] MEDS ORDERED: Sucralfate 1 GM TABLET PO SCH (09:00)
[2022-04-13] MEDS ORDERED: PARoxetine 10 MG TABLET PO SCH (09:00)
[2022-04-13] MEDS ORDERED: Pregabalin 75 MG CAPSULE PO SCH (09:00)
[2022-04-13] MEDS ORDERED: Cholecalciferol (D-3) 1,000 UNIT (25MCG) TABLET PO SCH (09:00)
[2022-04-13] MEDS ORDERED: Loratadine 10 MG TABLET PO SCH (09:00)
[2022-04-13] MEDS ORDERED: Fenofibrate 54 MG TABLET PO SCH (09:00)
[2022-04-13] MEDS: Iron Sucrose Complex 200 MG in 0.9 % Sodium Chloride 100 ML IVPB SCH (09:26)
[2022-04-13 09:32] VITALS: PULSE 84
[2022-04-13] MEDS ORDERED: Budesonide/Formoterol 80/4.5 1 PUFF INH IH SCH (10:00)
[2022-04-13 11:07] VITALS: O2SAT 96
== END 2022-04-13 12:45 | disposition home or self-care (01) ==
LOC: EMEROOARM 15:25 → 2ANU 15:25 → SUATTDRO 18:44 → 2NNU 20:45 → 3ANU 04-12 16:43
PROVIDERS: ADMIT Internal Medicine; ATTEND Internal Medicine